=== PATIENT | female | born 1930 | race Caucasian/White ===

== ENCOUNTER 2017-01-13 09:38 | Emergency (ER) | payer MEDICARE, OTHER ==
[2017-01-13 10:37] VITALS: BP 147/72
--- NOTE | 2017-01-13 11:26 | UC ---
Hand/Wrist HPI - HPI Summary HPI Summary: ONSET OF RIGHT THUMB PAIN YESTERDAY WHEN HER SHOULDER BAG SLIPPED OFF HER SHOULDER. SHE CAUGHT THE BAG IN THE 1ST WEBSPACE OF HER RIGHT HAND AND HER THUMB WAS HYPEREXTENDED. HAS PAIN WITH MVMT. NO SIGNIFICANT SWELLING OR BRUISING. - History Of Current Complaint Chief Complaint: UCUpperExtremity Stated Complaint: THUMB INJURY Time Seen by Provider: 01/13/17 11:08 Hx Obtained From: Patient Onset/Duration: Sudden Onset, Lasting Hours, Still Present Severity Initially: Mild Severity Currently: Mild Pain Intensity: 2 Pain Scale Used: 0-10 Numeric Character Of Pain: Aching Aggravating Factor(s): Movement, Extension, Abduction Alleviating: Rest Related History: Dominant Hand Right - Allergies/Home Medications Allergies/Adverse Reactions: Allergies Allergy/AdvReac Type Severity Reaction Status Date / Time No Known Allergies Allergy Verified 01/13/17 10:37 PMH/Surg Hx/FS Hx/Imm Hx Endocrine History Of: Reports: Dyslipidemia Denies: Diabetes, Thyroid Disease Cardiovascular History Of: Reports: Cardiac Disorders - 5 stents placed in 01/20 , Hypertension - on meds Respiratory History Of: Denies: COPD, Asthma GI/ History Of: Denies: Ulcer Cancer History Of: Denies: Breast Cancer - Surgical History Surgical History: Yes Surgery Procedure, Year, and Place: CERVICAL DISC REPAIR 1971VARICOSE VEIN SURGERY 1958LEFT HIP REPLACEMENT 2010 - Family History Known Family History: Positive: Hypertension - Social History Alcohol Use: None Alcohol Amount: once or twice a year Substance Use Type: None Smoking Status (MU): Never Smoked Tobacco - Immunization History Most Recent Influenza Vaccination: FALL 2012 Most Recent Tetanus Shot: UP TO DATE Most Recent Pneumonia Vaccination: UP TO DATE Review of Systems Constitutional: Negative Skin: Negative Respiratory: Negative Cardiovascular: Negative Gastrointestinal: Negative Musculoskeletal: Arthralgia, Decreased ROM All Other Systems Reviewed And Are Negative: Yes Physical Exam Triage Information Reviewed: Yes Appearance: Well-Appearing, No Pain Distress, Well-Nourished Vital Signs: Initial Vital Signs Temp 98.6 F 01/13/17 10:31 Pulse 69 01/13/17 10:31 Resp 16 01/13/17 10:31 BP 147/72 01/13/17 10:31 Pulse Ox 100 01/13/17 10:31 Vital Signs Reviewed: Yes Eyes: Positive: Conjunctiva Clear ENT: Positive: Hearing grossly normal Neck: Positive: Supple Respiratory: Positive: No respiratory distress, No accessory muscle use Cardiovascular: Positive: Pulses Normal Abdomen Description: Positive: Soft Musculoskeletal: Positive: No Edema, ROM Limited @ - RIGHT THUMB MCP JOINT, Other: - TTP RIGHT 1ST MCP JOINT AND METACARPAL. SEVERE PAIN WITH ABDUCTION AND EXTENSION OF THUMB. SLIGHT PAIN WITH FINKELSTEINS Neurological: Positive: Alert Psychological: Positive: Age Appropriate Behavior Skin: Negative: rashes Diagnostics - Radiology RIGHT THUMB XRAY Xray Interpretation: No Acute Changes Radiology Interpretation Completed By: Radiologist Hand/Wrist Course/Dx - Differential Dx/Diagnosis Differential Diagnosis/HQI/PQRI: Sprain, Tendonitis, Tenosynovitis Provider Diagnoses: RIGHT ULNAR COLLATERAL LIGAMENT INJURY Discharge - Discharge Plan Condition: Stable Disposition: HOME Patient Education Materials: [employer] (ED) Referrals: Aaron Gibbons MD [Primary Care Provider] - 1 Week Additional Instructions: FOLLOW-UP WITH YOUR PCP IN A WEEK OR SO TO RE-EVALUATE YOUR PROGRESS. YOU MAY NEED TO WEAR THE SPLINT FOR SEVERAL WEEKS BEFORE AN EXERCISE REGIMEN IS STARTED.
--- NOTE | 2017-01-13 11:41 | RAD ---
INDICATION: Right thumb injury. TECHNIQUE: 3 views of the right thumb were obtained. FINDINGS: The bones are osteopenic and in normal alignment. There is soft tissue swelling around the distal phalanx. No fracture is seen. There is moderate osteoarthritic change in the interphalangeal joint and within the scaphotrapezial joint. IMPRESSION: NO EVIDENCE FOR FRACTURE.
== END 2017-01-13 12:15 | disposition home or self-care (01) ==
LOC: UCEAST 09:38
DX: S53.441A Ulnar collateral ligament sprain of right elbow, initial encounter (principal); X50.0XXA Overexertion from strenuous movement or load, initial encounter; Y92.9 Unspecified place or not applicable
CPT/HCPCS: 99213; G0463

== ENCOUNTER 2017-05-24 10:35 | Day surgery (SDC) | payer MEDICARE, OTHER ==
[~2017-05-24 10:35] MED LIST: Acetaminophen TAB* 325 MG PO PRN; Buffered Lidocaine 0.9% SYRIN* 5 ML/SYR SYRINGE INTRADERM ONE
[2017-05-24] MEDS ORDERED: fentaNYL* 50 MCG/ML 2 ML VIAL (100 MCG VIAL) ONE (12:30)
[2017-05-24] MEDS ORDERED: Midazolam* 1 MG/ML 2 ML VIAL (2 MG) ONE (12:30)
[2017-05-24] MEDS ORDERED: Neomycin/Polymy/Dex OPTH.SUSP* MAXITROL 0.1% 5 ML ONE (12:37)
[2017-05-24] MEDS ORDERED: Proparacaine 0.5% OPHTH.SOL* 15 ML BTL ONE (12:37)
[2017-05-24] MEDS ORDERED: Povidone Iodine 5% OPTH* 30 ML BTL ONE (12:37)
[2017-05-24] MEDS ORDERED: Cyclopentolate 1% OPTH.SOL* 2 ML BTL ONE (12:37)
[2017-05-24] MEDS ORDERED: Lidocaine 1% MPF* 2 ML VIAL ONE (12:37)
[2017-05-24] MEDS ORDERED: acetaZOLAMIDE TAB* 250 MG ONE (12:37)
[2017-05-24] MEDS ORDERED: Phenylephrine 2.5% OPTH.SOL* 2 ML BTL ONE (12:37)
[2017-05-24] MEDS ORDERED: Buffered Lidocaine 0.9% SYRIN* 5 ML/SYR SYRINGE ONE (12:37)
[2017-05-24] MEDS ORDERED: Flurbiprofen 0.03% OPTH.SOL* 2.5 ML BTL ONE (12:37)
[2017-05-24] MEDS ORDERED: Ondansetron INJ* 2 MG/ML VIAL ONE (13:26)
[2017-05-24 13:27] VITALS: BP 110/64
--- NOTE | 2017-05-25 03:32 | OP ---
DATE OF OPERATION: 05/24/17 [facility] DATE OF : 32 SURGEON: Abhilash Villanueva M.D. PREOPERATIVE DIAGNOSIS: Cataract, left eye. POSTOPERATIVE DIAGNOSIS: Cataract, left eye. OPERATIVE PROCEDURE: Phacoemulsification, left eye with IOL. DESCRIPTION OF PROCEDURE: The patient was brought to the operating room after being given 1/2% Alcaine with epinephrine drops in the preoperative area. The eye was prepped and draped in the usual sterile fashion. Sterile drape and eyelid speculum were placed. Again, topical 1/2% Alcaine with epinephrine was given. A paracentesis incision was made at the 3 o'clock position with the No.75 blade. Clear cornea incision 2.2 x 2.2-mm was created at the 6 o'clock position starting at the anterior limbus using the 2.2-mm keratome. The anterior chamber was irrigated with 0.4 mL of 1% non-preservative intracameral lidocaine and filled with DisCoVisc. A capsulorrhexis was completed using the cystotome and the Utrata forceps. Hydrodissection was performed with balanced salt solution. The lens nucleus was removed with the Phacoemulsification handpiece without incident. Cortex was removed with the irrigation-aspiration handpiece. The capsular bag was re-inflated using DisCoVisc and an [id number] 20.5 implant was inserted with the shooter. The irrigation-aspiration handpiece was used to remove all residual DisCoVisc. The eye was refilled with balanced salt solution and the wound checked and found to be watertight. Topical Maxitrol drops were given. [id number]/[facility] #: [id number] [facility]
== END 2017-05-24 14:10 | disposition home or self-care (01) ==
LOC: OREAST 10:35
PROVIDERS: ATTEND Specialist
DX: H25.812 Combined forms of age-related cataract, left eye (principal); H40.1414 Capsular glaucoma with pseudoexfoliation of lens, right eye, indeterminate stage; I10 Essential (primary) hypertension; E78.2 Mixed hyperlipidemia; M85.9 Disorder of bone density and structure, unspecified; I25.10 Atherosclerotic heart disease of native coronary artery without angina pectoris; I25.2 Old myocardial infarction; Z95.5 Presence of coronary angioplasty implant and graft
CPT/HCPCS: A9270-GY; J2250; J2405; J3010; V2632

== ENCOUNTER 2017-05-31 06:46 | Day surgery (SDC) | payer MEDICARE, OTHER ==
[2017-05-31] MEDS ORDERED: fentaNYL* 50 MCG/ML 2 ML VIAL (100 MCG VIAL) ONE (07:44)
[2017-05-31] MEDS ORDERED: Midazolam* 1 MG/ML 2 ML VIAL (2 MG) ONE (07:44)
[2017-05-31 08:55] VITALS: BP 129/59
[2017-05-31] MEDS ORDERED: Cyclopentolate 1% OPTH.SOL* 2 ML BTL ONE (09:03)
[2017-05-31] MEDS ORDERED: acetaZOLAMIDE TAB* 250 MG ONE (09:03)
[2017-05-31] MEDS ORDERED: Proparacaine 0.5% OPHTH.SOL* 15 ML BTL ONE (09:03)
[2017-05-31] MEDS ORDERED: Phenylephrine 2.5% OPTH.SOL* 2 ML BTL ONE (09:03)
[2017-05-31] MEDS ORDERED: Povidone Iodine 5% OPTH* 30 ML BTL ONE (09:03)
[2017-05-31] MEDS ORDERED: Lidocaine 1% MPF* 2 ML VIAL ONE (09:03)
[2017-05-31] MEDS ORDERED: Buffered Lidocaine 0.9% SYRIN* 5 ML/SYR SYRINGE ONE (09:03)
[2017-05-31] MEDS ORDERED: Ketorolac 0.5% OPHTH (NF) 0.5 % 5 ML BTL ONE (09:03)
[2017-05-31] MEDS ORDERED: Neomycin/Polymy/Dex OPTH.SUSP* MAXITROL 0.1% 5 ML ONE (09:03)
--- NOTE | 2017-05-31 09:05 | OP ---
DATE OF OPERATION: 05/31/17 - [facility] DATE OF : 32 SURGEON: Abhilash Villanueva M.D. PREOPERATIVE DIAGNOSIS: Cataract right eye. POSTOPERATIVE DIAGNOSIS: Cataract right eye. OPERATIVE PROCEDURE: Phacoemulsification right eye with intraocular lens implant and CTR. DESCRIPTION OF PROCEDURE: The patient was brought to the operating room after being given 1/2% Alcaine with epinephrine drops in the preoperative area. The eye was prepped and draped in the usual sterile fashion. Sterile drape and eyelid speculum were placed. Again, topical 1/2% Alcaine with epinephrine was given. A paracentesis incision was made at the 9 o'clock position with the No.75 blade. Clear cornea incision 2.2 x 2.2-mm was created at the 12 o'clock position starting at the anterior limbus using the 2.2-mm keratome. The anterior chamber was irrigated with 0.4 mL of 1% non-preservative intracameral lidocaine and filled with DisCoVisc. A capsulorrhexis was completed using the cystotome and the Utrata forceps. Hydrodissection was performed with balanced salt solution. The lens nucleus was removed with the Phacoemulsification handpiece without incident. Cortex was removed with the irrigation-aspiration handpiece. The capsular bag was re-inflated using DisCoVisc and an [id number] implant was inserted with the shooter and oriented to the 70-degree meridian. Horizontal reference rich were made in the pre- operative area in the seated position prior to reorienting the lens. A CTR11 was inserted with the shooter into the capsular bag. The irrigation-aspiration handpiece was used to remove all residual DisCoVisc. The eye was refilled with balanced salt solution and the wound checked and found to be watertight. Topical Maxitrol drops were given. [id number]/[facility] #: [id number] [facility] SYSTEMCarole
== END 2017-05-31 09:02 | disposition home or self-care (01) ==
LOC: OREAST 06:46
PROVIDERS: ATTEND Specialist
DX: H25.811 Combined forms of age-related cataract, right eye (principal); H40.1414 Capsular glaucoma with pseudoexfoliation of lens, right eye, indeterminate stage; I10 Essential (primary) hypertension; I25.10 Atherosclerotic heart disease of native coronary artery without angina pectoris; I25.2 Old myocardial infarction; Z87.891 Personal history of nicotine dependence; E78.5 Hyperlipidemia, unspecified
CPT/HCPCS: A9270-GY; J2250; J3010; V2787

== ENCOUNTER 2018-05-24 10:32 | Inpatient (IN) | payer MEDICARE, OTHER ==
--- NOTE | 2018-05-09 21:47 | HP ---
HISTORY AND PHYSICAL: DATE OF ADMISSION/SURGERY: 05/24/18 DATE OF OFFICE VISIT: 05/09/18 SURGEON: Glenna Peguero MD * (DICTATED BY ALEJO SHEEHAN) PROCEDURE: Right total hip arthroplasty. CHIEF COMPLAINT: Right hip pain. HISTORY OF PRESENT ILLNESS: Ms. Kearney is an 87-year-old female with complaints of right hip pain. She has failed conservative treatment and elected to proceed with the right total hip arthroplasty., which is scheduled for 05/24/[address] Peguero. PAST MEDICAL HISTORY: Hypertension, high cholesterol, prior [place]. PAST SURGICAL HISTORY: Heart stents, vein stripping, left total hip arthroplasty, cervical diskectomy, cataract removal. CURRENT MEDICATIONS: 1. Atorvastatin calcium 20 mg q.h.s. 2. Lisinopril 5 mg every day. 3. Aspirin 81 mg daily. 4. Glucosamine and chondroitin. 5. Metoprolol. 6. Amlodipine 2.5 mg daily. 7. Amoxicillin 500 mg before dental work. 8. CoQ10. 9. Calcium with vitamin D. 10. Alendronate sodium 70 mg every week. ALLERGIES: No known drug allergies. FAMILY HISTORY: Heart disease. SOCIAL HISTORY: She is an 87-year-old female, lives at [facility]. She does not smoke, use drugs. Uses occasional alcohol. REVIEW OF SYSTEMS: A complete 14-point review of systems was reviewed with the patient and was all negative and noncontributory. PHYSICAL EXAMINATION GENERAL: She is well developed, well nourished, in no acute distress. VITAL SIGNS: She stands 5 feet 3 inches tall, weighs 146 pounds. Her blood pressure 140/80, her heart rate is 84. HEENT: Normocephalic, atraumatic. NECK: Supple. No palpable lymph nodes. PULMONARY: The lungs are clear to auscultation bilaterally. CARDIO: Regular rate and rhythm. Strong S1, S2. ABDOMEN: Soft, nontender, nondistended. MUSCULOSKELETAL: Right lower extremity, the skin is intact. There are no open wounds or abrasions. She walks with an antalgic-type gait favoring her right hip. She has 80 degrees of hip flexion, 20 degrees of external rotation, 5 degrees of internal rotation. 2+ dorsalis pedis pulses and intact sensation. Her lower extremity muscle group strengths were intact at 5/5. NEUROLOGICAL: She is alert and oriented x3. ASSESSMENT AND PLAN: Ms. Kearney is an 87-year-old female with end-stage osteoarthritis of the right hip. She has failed conservative treatment and has elected to proceed with the right total hip arthroplasty, which is scheduled for 05/24/[address] Peguero discussed the risks and benefits of the surgery at today's visit and all of her questions were answered. She will follow up in 2 weeks after the surgery with Dr. Peguero. ALEJO SHEEHAN [id number]/[facility] #: [id number] MTDCarole
[~2018-05-24 10:32] MED LIST changes: -Acetaminophen TAB* 325 MG PO PRN; +Sodium Citrate/Citric Acid* 15 ML UDC PO ONE
--- OUTSIDE RECORDS SUMMARY | 2018-05-24 10:37 | XMS REPORT ---
:1930 External Reference #:[id number] Author Organization [place] [facility] Address [address] [place] [address] [place] [address] Phone [phone] Care Team Providers Name Role Phone Aaron Gibbons III, MD Primary Care Physician Unavailable Payers Type Date Identification Numbers Payment Provider Subscriber Medicare Primary Effective: Policy Number: Medicare Alpa Kearney 1995 [id number] PayID: [id number] [address] [place] [address] Medigap Part B Policy Number: [id number] For Life Robertjuli Kearney PayID: [id number] [address] [place] [address] Advance Directives Type Date Description Status Comment Other Directive 02/03/2014 Health Care Proxy Current and Verified Problems Date Description Provider Status Onset: 03/07/2012 Urinary tract infectious disease Alyce Garcia, Active N.P. Onset: 03/07/2012 Atrophic vaginitis Alyce Garcia, Active N.P. Onset: 08/13/2012 Benign essential hypertension Aaron Gibbons M.D. Active Onset: 08/13/2012 Osteochondropathy Aaron Gibbons M.D. Active Onset: 08/13/2012 Pure hypercholesterolemia Aaron Gibbons M.D. Active Onset: 01/16/2014 Coronary arteriosclerosis Sebastián Barker M.D., [facility], Active [facility] Onset: 01/16/2014 Mixed hyperlipidemia Sebastián Barker M.D., [facility], Active [facility] Onset: 03/04/2014 Chronic ischemic heart disease Sebastián Barker M.D., [facility], Active [facility] Onset: 04/30/2018 Localized, primary osteoarthritis of Glenna Peguero M.D. Active the pelvic region and thigh Onset: 08/24/2015 Disorder of bone Aaron Gibbons M.D. Active Onset: 08/24/2015 Essential hypertension Aaron Gibbons M.D. 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 Cigarette Use Never Smoked Cigarettes ETOH Use Denies alcohol use Smoking Patient has never smoked Recreational Drug Use Denies Drug Use Daily Caffeine Consumes on average 2 cups of hot tea per day Exercise Type/Frequency Exercises rarely Allergies, Adverse Reactions, Alerts Date Description Reaction Status Severity Comments 07/02/2007 NKDA active Medications Medication Date Status Form Strength Qnty SIG Indications Ordering Provider Atorvastatin 04/20 Active Tablets 20mg 90tab take 1 Aaron Boyer /2014 s tablet at Edwige, bedtime Virginie Lisinopril 11/28 Active Tablets 5mg 180ta 1 by mouth Sebastián /2014 bs twice a day Virginie Barker, [facility], [facility] Aspirin Ec Active Tablets 81mg 90tab 1 tablet Unknown Lo-Dose / DR s daily. Glucosamine Active Capsules 1 cap po Unknown Chondroitin daily Complex Metoprolol Active Tablets 100mg 180ta 1 by mouth Sebastián Succinate ER /0000 ER 24HR bs twice a day Virginie Barker, [facility], [facility] Amlodipine Active Tablets 2.5mg 90tab 1 by mouth Sebastián Besylate / s every day Virginie Barker, ESHA, [facility] Amoxicillin Active Capsules 500mg 12cap 4 tablets 1 Unknown /0000 s hour before dental work Co Q-10 Active Capsules 100mg 90cap 1 by mouth Unknown /0000 s every day Calcium + D3 Active Tablets 600-200mg once daily Unknown /0000 -Unit Alendronate Active Tablets 70mg take 1 Unknown Sodium /0000 tablet by mouth every week Alendronate 10/16 Hx Tablets 70mg 12tab take 1 M85.831 Aaron Geiger. Sodium s tablet by Edwige, - mouth every M.D. Keflex 10/06 Hx Capsules 500mg 10cap take 1 tab R23.8 Aaron E. s by mouth q12 Edwige, - hours for 5 M.D. Probiotic Complex 10/06 Hx Capsules 60cap Take 1 R23.8 Cat[place] Acidophilus s capsule [place], - daily for 60 M.D. Keflex 02/17 Hx Capsules 500mg 20cap 1 by mouth 681.11 Aaron Caldera s twice a day Ed[place]ige, - M.D. 04/19 Lisinopril 07/09 Hx Tablets 5mg 90tab 1 by mouth s every in the [facility] - morning M.D., 11/28 [facility], [facility] Cipro 03/19 Hx Tablets 250mg 14tab one by vlad Caldera s twice daily Edwige, - for 7 days M.D. 05/14 Cipro 02/10 Hx Tablets 250mg 14tab one by vlad Caldera s twice daily Edwige, - for 7 days M.D. 02/17 Lisinopril 01/16 Hx Tablets 10mg 90tab take one s pill by Mj, - mouth every M.D., 11/28 at night [facility] Zestoretic 04/01 Hx Tablets 10-12.5mg 90tab 1 po qd Aaron Caldera noe Gibbons, - M.D. 04/01 Cipro 10/23 Hx Tablets 250mg 10tab take one 599.0 Aaron Caldera s pill twice Edwige, - daily for 5 M.D. Cyclobenzaprine 04/23 Hx Tablets 5mg 15tab 1 po tid prn Dirk HCL s muscle spasm Rusty, - M.D. 08/13 Cipro 03/07 Hx Tablets 250mg 14tab take one 599.0 Alyce /2012 s pill twice [place] Pool-W - daily for 7 atson, 08/13 days N.P. Premarin 03/07 Hx Cream 0.625mg/G 42.50 administer 627.3 M 0gm 0.5 grams [place] Pool-W - twice weekly atson, 01/15 N.P. Cipro 08/18 Hx Tablets 500mg 14tab 1 po bid Aaron ESanam s Aundrea Gibbons M.D. 03/07 Coumadin 05/11 Hx Tablets 2.5mg 90tab take as s directed at Rusty, - 5pm daily M.DSanam 03/07 Percocet 05/11 Hx Tablets 5-325mg 90tab 1-2 tabs po s q4-6 prn Rusty, - pain M.DSanam 03/07 Cipro 03/02 Hx Tablets 500mg 14tab 1 po bid X7 Aaron Caldera s Aundrea Kim M.D. 04/26 Ibuprofen 11/12 Hx Capsules 200mg prn Aaron ESanam Aundrea Gibbons M.D. 01/15 Zestoretic 11/12 Hx Tablets 10-12.5mg 90tab 1 po qd Aaron Sanam s Aundrea Gibbons M.D. 01/15 Medrol Dosepak 07/14 Hx Tablets 4mg 1tabs follow Aaron Sanam package Aundrea Gibbons M.D. 04/26 take with food Flexeril 07/03 Hx Tablets 10mg 15tab 1 po QHS prn Aaron ESanam s Aundrea Gibbons M.D. 04/26 Acetasol HC 10/21 Hx Solution 2-1% 15cc 3-4 drops Aaron ESanam qid Aundrea Gibbons M.D. 06/18 Physical Therapy 10/21 Hx 20uni pt Aaron ESanam ts evaluation Edwige, - and Virginie 05/12 treatment for bilat hip pain Cortisporin TC 09/10 Hx 10cc 4 drops to Aaron Caldera Ot [place] qid for Edwige, - 7-10 days M.DSanam 10/21 Tamiflu 01/13 Hx Capsules 75mg 10cap 1 PO bid X 5 Aaron Caldera /2007 s Aundrea Kim M.D. 03/20 Tylenol Hx Tablets 325mg 100ta prn Barken, /0000 bs MD Vipul - 04/29 Advil Hx Capsules 200mg 1 PO prn Mando, /0000 MD Vipul - 12/30 Osteo Bi-Flex Hx Tablets 250-200mg 2 by mouth Unknown Regular Strength /0000 every day - 08/20 Centrum Silver Hx Tablets 1 PO qd Mando, /0000 MD Vipul - 07/02 Zestoretic Hx Tablets 07/20.5 90tab 1 po qd Aaron E. /0000 s Aundrea Gibbons M.D. 11/12 Aleve Hx Tablets 220mg prn Mando, /0000 MD Vipul - 04/20 Atenolol Hx Tablets 25mg 90tab 1 po qd Aaron E. /0000 Aundrea Reynolds M.D. 01/15 Calcium + D Hx Tablets 600-200mg 60tab 1 po bid Unknown /0000 -Unit s - 01/15 Metoprolol Hx 25mg 1 1/2 tab po Unknown /0000 Tablet bid - 01/15 Enalapril Maleate Hx Tablets 10mg 30tab 1 by mouth Unknown /0000 s every day - 01/15 Atorvastatin Hx Tablets 40mg 90tab 1/2 tab by Sebastián Calcium /0000 s mouth every Stefek, - day M.D., 04/20 [facility], [facility] Nitrostat Hx Tablets 0.4mg 25tab one sl q5min Unknown /0000 Sub s up to 3 - doses as 02/25 Brilinta Hx Tablets 90mg 180ta 1 tab by Sebastián /0000 bs mouth twice Stefek, - a day M.D., 12/30 [facility], [facility] Lisinopril Hx Tablets 10mg 90tab 1 by mouth Unknown /0000 s every day - 01/16 Premarin Hx Cream 0.625mg/G 42.50 10/10 Unknown /0000 M 0gm application - by way of 11/27 weekly Calcium 600+D3 Hx Tablets 600-800mg daily Unknown /0000 -Unit - 08/24 Ketoconazole Hx Cream 2% apply thin Unknown /0000 film once - daily 04/19 Vitamin D High Hx Capsules 1000Unit 2 by mouth Unknown Potency /0000 every day - 04/29 Calcium 600 Hx Tablets 1500(600C Unknown /0000 a) mg - 08/25 Ciprofloxacin HCL Hx Tablets 250mg one by mouth Unknown /0000 twice a day - 05/08 Immunizations CPT Code Status Date Vaccine Lot # [id number] Given 08/28/2017 Influenza Virus Vaccine, Quadrivalent, Split, [id number] Preservative Free 15166 Given 08/25/2016 Influenza Virus Vaccine, Quadrivalent, Split [id number] Virus, [place] Use [address] Given 08/24/2015 Influenza Virus Vaccine, Quadrivalent, Split, [id number] Preservative Free 90437 Given 02/17/2015 Tdap - Tetanus/Diptheria/Acellular Pertussis [id number] 07579 Given 02/17/2015 Pneumococcal Conjugate Vaccine 13 Valent For [id number] Intramuscular Use 88128 Given 08/20/2014 Flu Vaccine Split Virus Preservative Free For [id number] Indiv 3Yr Older 05922 Given 08/14/2013 Flu Vaccine Split Virus Preservative Free For [id number] Indiv 3Yr Older 21785 Given 09/19/2012 Zoster (Zostavax) [id number] Q2038 Given 07/11/2012 Fluzone Vaccine [id number] Q2038 Given 11/12/2010 Fluzone Vaccine [id number] 74126 Given 07/28/2008 Influenza Virus 3Yrs & Over 13137 Given 07/23/2007 Influenza Virus 3Yrs & Over 77280 Given 07/23/2007 Influenza Virus 3Yrs & Over 49661 Given 07/23/2007 Influenza Virus 3Yrs & Over [id number] 39503 Given 05/04/2004 Td (History By Patient) [id number] 93860 Given 03/25/1999 Pneumovax (History By Patient) Vital Signs Date Vital Result Comment 05/10/2018 Height 63 inches 5'3" Weight 147.00 lb Heart Rate 76 /min BP Systolic Sitting 114 mmHg Lue reg cuff BP Diastolic Sitting 80 mmHg Lue reg cuff BP Systolic Standing 116 mmHg Lue BP Diastolic Standing 80 mmHg Lue Respiratory Rate 16 /min BMI (Body Mass Index) 26.0 kg/m2 Ejection Fraction 60-65% 02/25/14 05/09/2018 Height 63.5 inches 5'3.50" Weight 146.00 lb Heart Rate 84 /min BP Systolic 140 mmHg BP Diastolic 80 mmHg BMI (Body Mass Index) 25.5 kg/m2 05/08/2018 Height 63.5 inches 5'3.50" Weight 146.00 lb Heart Rate 70 /min BP Systolic Sitting 120 mmHg BP Diastolic Sitting 70 mmHg O2 % BldC Oximetry 96 % BMI (Body Mass Index) 25.5 kg/m2 04/30/2018 Height 63.5 inches 5'3.50" Weight 146.00 lb Heart Rate 69 /min BP Systolic 146 mmHg BP Diastolic 82 mmHg BMI (Body Mass Index) 25.5 kg/m2 04/18/2018 Height 63 inches 5'3" Weight 142.00 lb Heart Rate 72 /min BP Systolic 139 mmHg BP Diastolic 76 mmHg O2 % BldC Oximetry 97 % BMI (Body Mass Index) 25.2 kg/m2 02/26/2018 Weight 148.00 lb Heart Rate 78 /min BP Systolic Sitting 130 mmHg BP Diastolic Sitting 82 mmHg O2 % BldC Oximetry 96 % 10/16/2017 Weight 148.00 lb Heart Rate 60 /min BP Systolic Sitting 140 mmHg BP Diastolic Sitting 72 mmHg Body Temperature 98.1 F O2 % BldC Oximetry 96 % 10/06/2017 Weight 148.25 lb Heart Rate 70 /min BP Systolic 140 mmHg BP Diastolic 76 mmHg Respiratory Rate 20 /min Body Temperature 97.4 F O2 % BldC Oximetry 97 % 10/04/2017 Weight 147.50 lb Heart Rate 73 /min BP Systolic 134 mmHg BP Diastolic 78 mmHg Respiratory Rate 18 /min Body Temperature 98.1 F O2 % BldC Oximetry 97 % 08/28/2017 Height 63 inches 5'3" Weight 149.00 lb Heart Rate 97 /min BP Systolic Sitting 134 mmHg BP Diastolic Sitting 78 mmHg Body Temperature 98.7 F O2 % BldC Oximetry 97 % BMI (Body Mass Index) 26.4 kg/m2 05/04/2017 Height 63 inches 5'3" Weight 143.00 lb Heart Rate 66 /min BP Systolic Sitting 142 mmHg BP Diastolic Sitting 64 mmHg Body Temperature 98.4 F O2 % BldC Oximetry 97 % BMI (Body Mass Index) 25.3 kg/m2 02/22/2017 Weight 146.00 lb Heart Rate 68 /min BP Systolic Sitting 126 mmHg BP Diastolic Sitting 74 mmHg Respiratory Rate 15 /min O2 % BldC Oximetry 98 % 08/25/2016 Height 63 inches 5'3" Weight 146.00 lb Heart Rate 80 /min BP Systolic Sitting 136 mmHg BP Diastolic Sitting 76 mmHg Body Temperature 98.2 F O2 % BldC Oximetry 96 % BMI (Body Mass Index) 25.9 kg/m2 04/18/2016 Weight 140.38 lb without shoes Heart Rate 76 /min BP Systolic Sitting 100 mmHg LA reg cuff BP Diastolic Sitting 70 mmHg LA reg cuff BP Systolic Standing 108 mmHg La reg cuff BP Diastolic Standing 72 mmHg La reg cuff Respiratory Rate 17 /min Ejection Fraction 60-65% date 02/25/14 ECHO 02/22/2016 Weight 139.00 lb Heart Rate 65 /min BP Systolic Sitting 135 mmHg BP Diastolic Sitting 79 mmHg Body Temperature 98.5 F 12/31/2015 Height 63 inches 5'3" Weight 141.00 lb Heart Rate 66 /min BP Systolic 124 mmHg BP Diastolic 60 mmHg Body Temperature 98.0 F O2 % BldC Oximetry 98 % BMI (Body Mass Index) 25.0 kg/m2 10/28/2015 Height 63 inches 5'3" Weight 140.00 lb Heart Rate 73 /min BP Systolic 141 mmHg BP Diastolic 82 mmHg Body Temperature 98.2 F O2 % BldC Oximetry 98 % BMI (Body Mass Index) 24.8 kg/m2 08/24/2015 Height 63 inches 5'3" Weight 140.00 lb Heart Rate 72 /min BP Systolic Sitting 136 mmHg BP Diastolic Sitting 68 mmHg Body Temperature 98.7 F O2 % BldC Oximetry 98 % BMI (Body Mass Index) 24.8 kg/m2 04/20/2015 Height 63 inches 5'3" Weight 138.00 lb Heart Rate 66 /min 78 BP Systolic Sitting 130 mmHg right arm, reg cuff BP Diastolic Sitting 80 mmHg right arm, reg cuff BP Systolic Standing 124 mmHg right arm, reg cuff BP Diastolic Standing 76 mmHg right arm, reg cuff Respiratory Rate 20 /min BMI (Body Mass Index) 24.4 kg/m2 Ejection Fraction 60-65% 02/25/14 02/17/2015 Height 63 inches 5'3" Weight 138.00 lb Heart Rate 72 /min BP Systolic Sitting 138 mmHg BP Diastolic Sitting 82 mmHg Body Temperature 98.6 F O2 % BldC Oximetry 98 % BMI (Body Mass Index) 24.4 kg/m2 12/10/2014 Height 63 inches 5'3" Weight 136.00 lb Heart Rate 64 /min BP Systolic Sitting 132 mmHg BP Diastolic Sitting 80 mmHg Body Temperature 98.2 F BMI (Body Mass Index) 24.1 kg/m2 11/28/2014 Height 63 inches 5'3" Weight 136.00 lb Heart Rate 72 /min 80 BP Systolic Sitting 138 mmHg right arm, reg cuff BP Diastolic Sitting 80 mmHg right arm, reg cuff BP Systolic Standing 112 mmHg right arm, reg cuff BP Diastolic Standing 72 mmHg right arm, reg cuff Respiratory Rate 16 /min BMI (Body Mass Index) 24.1 kg/m2 10/06/2014 Height 63 inches 5'3" Weight 135.00 lb Pain Level 2 BMI (Body Mass Index) 23.9 kg/m2 09/10/2014 Height 63.25 inches 5'3.25" Weight 135.00 lb Heart Rate 68 /min BP Systolic 159 mmHg BP Diastolic 73 mmHg BMI (Body Mass Index) 23.7 kg/m2 08/20/2014 Height 63.25 inches 5'3.25" Weight 135.00 lb Heart Rate 68 /min BP Systolic Sitting 120 mmHg BP Diastolic Sitting 70 mmHg Body Temperature 97.1 F BMI (Body Mass Index) 23.7 kg/m2 05/16/2014 Height 63 inches 5'3" Weight 132.00 lb Heart Rate 72 /min 78 BP Systolic Sitting 114 mmHg left arm, reg cuff BP Diastolic Sitting 60 mmHg left arm, reg cuff BP Systolic Standing 110 mmHg left arm, reg cuff BP Diastolic Standing 60 mmHg left arm, reg cuff Respiratory Rate 20 /min BMI (Body Mass Index) 23.4 kg/m2 03/04/2014 Height 63 inches 5'3" Weight 130.00 lb Heart Rate 80 /min BP Systolic Sitting 110 mmHg Ra reg cuff BP Diastolic Sitting 70 mmHg Ra reg cuff BP Systolic Standing 104 mmHg Ra BP Diastolic Standing 68 mmHg Ra Respiratory Rate 16 /min BMI (Body Mass Index) 23.0 kg/m2 02/17/2014 Weight 127.50 lb Heart Rate 88 /min BP Systolic Sitting 118 mmHg BP Diastolic Sitting 72 mmHg 01/16/2014 Height 63 inches 5'3" Weight 127.38 lb without shoes Heart Rate 86 /min 88 sit and stand HR reg BP Systolic Sitting 136 mmHg LA reg cuff BP Diastolic Sitting 66 mmHg LA reg cuff BP Systolic Standing 130 mmHg LA reg cuff BP Diastolic Standing 70 mmHg LA reg cuff Respiratory Rate 17 /min BMI (Body Mass Index) 22.6 kg/m2 08/14/2013 Height 63.25 inches 5'3.25" Weight 132.00 lb Heart Rate 88 /min BP Systolic Sitting 152 mmHg autocuff 160/83 BP Diastolic Sitting 82 mmHg autocuff 160/83 O2 % BldC Oximetry 98 % BMI (Body Mass Index) 23.2 kg/m2 08/08/2013 Weight 131.50 lb Heart Rate 82 /min BP Systolic Sitting 142 mmHg BP Diastolic Sitting 84 mmHg 02/21/2013 Weight 132.00 lb Heart Rate 71 /min BP Systolic Standing 126 mmHg BP Diastolic Standing 82 mmHg Body Temperature 98.6 F 02/11/2013 Weight 132.00 lb Heart Rate 86 /min BP Systolic Sitting 134 mmHg 154/70 initially BP Diastolic Sitting 68 mmHg 154/70 initially 10/23/2012 Height 63.5 inches 5'3.50" Weight 138.00 lb Heart Rate 78 /min BP Systolic Sitting 164 mmHg BP Diastolic Sitting 80 mmHg Body Temperature 97.9 F Tympanically BMI (Body Mass Index) 24.1 kg/m2 08/13/2012 Height 63.5 inches 5'3.50" Weight 139.00 lb Heart Rate 68 /min BP Systolic Sitting 148 mmHg BP Diastolic Sitting 82 mmHg BMI (Body Mass Index) 24.2 kg/m2 07/11/2012 Height 63.5 inches 5'3.50" Weight 140.00 lb Heart Rate 78 /min BP Systolic Sitting 128 mmHg BP Diastolic Sitting 74 mmHg BMI (Body Mass Index) 24.4 kg/m2 03/07/2012 Height 63.5 inches 5'3.50" Weight 139.00 lb Heart Rate 80 /min BP Systolic Sitting 140 mmHg 160/92 Right Arm BP Diastolic Sitting 100 mmHg 160/92 Right Arm BMI (Body Mass Index) 24.2 kg/m2 08/17/2011 Height 72 inches 6'0" Weight 138.00 lb Heart Rate 80 /min BP Systolic Sitting 140 mmHg BP Diastolic Sitting 70 mmHg Body Temperature 97.3 F BMI (Body Mass Index) 18.7 kg/m2 04/26/2011 Weight 138.00 lb Heart Rate 72 /min BP Systolic Sitting 122 mmHg BP Diastolic Sitting 82 mmHg Respiratory Rate 20 /min 11/12/2010 Weight 135.00 lb Heart Rate 88 /min BP Systolic Sitting 168 mmHg BP Diastolic Sitting 88 mmHg O2 % BldC Oximetry 98 % 06/18/2010 Weight 138.00 lb Heart Rate 78 /min BP Systolic Sitting 130 mmHg BP Diastolic Sitting 82 mmHg 05/12/2010 Weight 134.00 lb Heart Rate 75 /min BP Systolic Sitting 150 mmHg BP Diastolic Sitting 80 mmHg 10/21/2009 Height 62.5 inches 5'2.50" Weight 134.00 lb Heart Rate 80 /min BP Systolic Sitting 146 mmHg BP Diastolic Sitting 78 mmHg BMI (Body Mass Index) 24.1 kg/m2 09/10/2009 Height 62.50 inches 5'2.50" Weight 135.00 lb Heart Rate 78 /min BP Systolic Sitting 142 mmHg BP Diastolic Sitting 80 mmHg BMI (Body Mass Index) 24.3 kg/m2 04/20/2009 Heart Rate 60 /min 61 BP Systolic Sitting 150 mmHg 149/84 with pt's monitor BP Diastolic Sitting 76 mmHg 149/84 with pt's monitor 03/20/2009 Height 62.5 inches 5'2.50" Weight 129.00 lb Heart Rate 70 /min BP Systolic Sitting 142 mmHg BP Diastolic Sitting 94 mmHg BMI (Body Mass Index) 23.2 kg/m2 12/31/2007 Height 62.5 inches 5'2.50" Weight 138.00 lb Heart Rate 68 /min BP Systolic Sitting 134 mmHg BP Diastolic Sitting 74 mmHg BMI (Body Mass Index) 24.8 kg/m2 07/02/2007 Height 62.5 inches 5'2.50" Weight 145.00 lb Heart Rate 80 /min BP Systolic Sitting 140 mmHg BP Diastolic Sitting 76 mmHg BMI (Body Mass Index) 26.1 kg/m2 Results Test Date Test Result H/L Range Note Laboratory test finding 05/10/2018 Creatine Kinase(CK) <pending> CBC Auto Diff 05/09/2018 White Blood Count 3.9 10^3/uL 3.5-10.8 Red Blood Count 4.94 10^6/uL 4.00-5.40 Hemoglobin 15.0 g/dL 12.0-16.0 Hematocrit 44 % 35-47 Mean Corpuscular Volume 90 fL 80-97 Mean Corpuscular Hemoglobin 30 pg 27-31 Mean Corpuscular HGB Conc 34 g/dL 31-36 Red Cell Distribution Width 14 % 10.5-15 Platelet Count 245 10^3/uL 150-450 Mean Platelet Volume 7.0 um3 Low 7.4-10.4 Abs Neutrophils 2.2 10^3/uL 1.5-7.7 Abs Lymphocytes 1.2 10^3/uL 1.0-4.8 Abs Monocytes 0.4 10^3/uL 0-0.8 Abs Eosinophils 0.1 10^3/uL 0-0.6 Abs Basophils 0 10^3/uL 0-0.2 Abs Nucleated RBC 0 10^3/uL Granulocyte % 55.4 % 38-83 Lymphocyte % 30.0 % 25-47 Monocyte % 10.0 % High 0-7 Eosinophil % 3.7 % 0-6 Basophil % 0.9 % 0-2 Nucleated Red Blood Cells % 0.1 Type & Screen 05/09/2018 Patient Blood Type O Positive Antibody Screen NEGATIVE Urinalysis Profile 05/09/2018 Urine Color Yellow Urine Appearance Clear Urine Specific [place] 1.012 1.010-1.030 Urine pH 7.0 5-9 Urine Urobilinogen Negative Negative Urine Ketones Negative Negative Urine Protein Negative Negative Urine Leukocytes Negative Negative Urine Blood Negative Negative Urine Nitrite Negative Negative Urine Bilirubin Negative Negative Urine Glucose Negative Negative Inr/Protime 05/09/2018 Inr 0.93 0.77-1.02 Laboratory test finding 05/09/2018 Partial Thrombo Time 30.9 seconds 26.0 -36.3 PTT Comp Metabolic Panel 05/09/2018 Sodium 139 mmol/L 135-145 Potassium 3.9 mmol/L 3.5-5.0 Chloride 103 mmol/L 101-111 Co2 Carbon Dioxide 30 mmol/L 22-32 Anion Gap 6 mmol/L 2-11 Glucose 82 mg/dL 70-100 Blood Urea Nitrogen 13 mg/dL 6-24 Creatinine 0.77 mg/dL 0.51-0.95 BUN/Creatinine Ratio 16.9 8-20 Calcium 9.6 mg/dL 8.6-10.3 Total Protein 6.7 g/dL 6.4-8.9 Albumin 4.3 g/dL 3.2-5.2 Globulin 2.4 g/dL 2-4 Albumin/Globulin Ratio 1.8 1-3 Total Bilirubin 0.70 mg/dL 0.2-1.0 Alkaline Phosphatase 74 U/L 34-104 Alt 14 U/L 7-52 Ast 22 U/L 13-39 Egfr Non- 71.1 >60 Egfr 86.0 >60 1 Comp Metabolic Panel 08/24/2017 Sodium 139 mmol/L 133-145 Potassium 4.0 mmol/L 3.5-5.0 Chloride 105 mmol/L 101-111 Co2 Carbon Dioxide 30 mmol/L 22-32 Anion Gap 4 mmol/L 2-11 Glucose 92 mg/dL 70-100 Blood Urea Nitrogen 15 mg/dL 6-24 Creatinine 0.78 mg/dL 0.51-0.95 BUN/Creatinine Ratio 19.2 8-20 Calcium 9.8 mg/dL 8.6-10.3 Total Protein 6.4 g/dL 6.4-8.9 Albumin 4.3 g/dL 3.2-5.2 Globulin 2.1 g/dL 2-4 Albumin/Globulin Ratio 2.0 1-3 Total Bilirubin 0.60 mg/dL 0.2-1.0 Alkaline Phosphatase 88 U/L 34-104 Alt 16 U/L 7-52 Ast 25 U/L 13-39 Egfr Non- 70.0 >60 Egfr 90.1 >60 2 Lipid Profile (Trig/Chol/HDL) 08/24/2017 Triglycerides 74 mg/dL 3 Cholesterol 142 mg/dL 4 HDL Cholesterol 56.3 mg/dL 5 LDL Cholesterol 71 mg/dL 6 Laboratory test finding 08/24/2017 Vitamin D Total 25(Oh) 23.3 ng/mL 20- 50 Basic Metabolic Panel 02/20/2017 Sodium 138 mmol/L 133-145 Potassium 4.0 mmol/L 3.5-5.0 Chloride 106 mmol/L 101-111 Co2 Carbon Dioxide 29 mmol/L 22-32 Anion Gap 3 mmol/L 2-11 Glucose 91 mg/dL 70-100 Blood Urea Nitrogen 12 mg/dL 6-24 Creatinine 0.79 mg/dL 0.51-0.95 BUN/Creatinine Ratio 15.2 8-20 Calcium 9.2 mg/dL 8.6-10.3 Egfr Non- 69.2 >60 Egfr 89.0 >60 7 Laboratory test finding 02/20/2017 Vitamin D Total 25(Oh) 23.2 ng/mL Low 30-50 8 Laboratory test finding 04/19/2016 Alt (SGPT) 17 U/L 7-52 Ast (Sgot) 24 U/L 13-39 Lipid Profile (Trig/Chol/HDL) 04/19/2016 Triglycerides 75 mg/dL 9 Cholesterol 131 mg/dL 10 HDL Cholesterol 50.3 mg/dL 11 LDL Cholesterol 66 mg/dL 12 Stool For Blood 11/05/2015 Miscellaneous Lab negative x 3 Urinalysis Profile 11/02/2015 Urine Color Yellow Urine Appearance Cloudy Urine Specific [place] 1.012 1.010-1.030 Urine pH 5.0 5-9 Urine Urobilinogen Negative Negative Urine Ketones Negative Negative Urine Protein Negative Negative Urine Leukocytes Trace Negative Urine Blood Negative Negative * * Negative 13 Urine Nitrite Negative Negative Urine Bilirubin Negative Negative Urine Glucose Negative Negative Urine White Blood Cell Trace(0-5/hpf) Absent Urine Red Blood Cell Absent Absent Urine Bacteria 1+ Absent Urine Squamous Epithelial Cell Present Absent CBC Auto Diff 11/02/2015 White Blood Count 5.4 10^3/uL 3.5-10.8 Red Blood Count 4.67 10^6/uL 4.0-5.4 Hemoglobin 14.3 g/dL 12.0-16.0 Hematocrit 43 % 35-47 Mean Corpuscular Volume 93 fL 80-97 Mean Corpuscular Hemoglobin 31 pg 27-31 Mean Corpuscular HGB Conc 33 g/dL 31-36 Red Cell Distribution Width 14 % 10.5-15 Platelet Count 259 10^3/uL 150-450 Mean Platelet Volume 7 um3 Low 7.4-10.4 Abs Neutrophils 3.6 10^3/uL 1.5-7.7 Abs Lymphocytes 1.0 10^3/uL 1.0-4.8 Abs Monocytes 0.6 10^3/uL 0-0.8 Abs Eosinophils 0.1 10^3/uL 0-0.6 Abs Basophils 0 10^3/uL 0-0.2 Abs Nucleated RBC 0 10^3/uL Granulocyte % 67.4 % 38-83 Lymphocyte % 18.0 % Low 25-47 Monocyte % 11.3 % High 1-9 Eosinophil % 2.6 % 0-6 Basophil % 0.7 % 0-2 Nucleated Red Blood Cells % 0 Comp Metabolic Panel 11/02/2015 Sodium 138 mmol/L 133-145 Potassium 3.9 mmol/L 3.5-5.0 Chloride 102 mmol/L 101-111 Co2 Carbon Dioxide 31 mmol/L 22-32 Anion Gap 5 mmol/L 2-11 Glucose 74 mg/dL 70-100 Blood Urea Nitrogen 15 mg/dL 6-24 Creatinine 0.91 mg/dL 0.51-0.95 BUN/Creatinine Ratio 16.5 8-20 Calcium 9.7 mg/dL 8.6-10.3 Albumin 4.5 g/dL 3.2-5.2 Total Bilirubin 0.50 mg/dL 0.2-1.0 Alt 23 U/L 7-52 Ast 26 U/L 13-39 Egfr Non- 58.9 >60 Egfr 75.7 >60 14 Total Protein 6.7 g/dL 6.4-8.9 Globulin 2.2 g/dL 2-4 Albumin/Globulin Ratio 2.0 1-3 Alkaline Phosphatase 92 U/L 34-104 Laboratory test finding 11/02/2015 Erythrocyte Sed Rate 16 mm/Hr 0-40 C Reactive Protein < 1.00 mg/L < 5.00 15 Urine Culture And Sensitivities SEE RESULT BELOW 16 Basic Metabolic Panel 09/09/2015 Sodium 139 mmol/L 133-145 Potassium 4.2 mmol/L 3.5-5.0 Chloride 104 mmol/L 101-111 Co2 Carbon Dioxide 30 mmol/L 22-32 Anion Gap 5 mmol/L 2-11 Glucose 86 mg/dL 70-100 Blood Urea Nitrogen 15 mg/dL 6-24 Creatinine 0.81 mg/dL 0.51-0.95 BUN/Creatinine Ratio 18.5 8-20 Calcium 9.9 mg/dL 8.6-10.3 Egfr Non- 67.4 >60 Egfr 86.6 >60 17 Laboratory test finding 04/15/2015 Alt (SGPT) 17 U/L 7-52 18, 19 Ast (Sgot) 24 U/L 13-39 18, 20 Lipid Profile (Trig/Chol/HDL) 04/15/2015 Triglycerides 74 mg/dL 18, 21 Cholesterol 127 mg/dL 18, 22 HDL Cholesterol 53.2 mg/dL 18, 23 LDL Cholesterol 59 mg/dL 18, 24 CBC Auto Diff 12/12/2014 White Blood Count 4.7 10^3/uL Low 4.8-10.8 Red Blood Count 4.77 10^6/uL 4.0-5.4 Hemoglobin 14.6 g/dL 12.0-16.0 Hematocrit 45 % 35-47 Mean Corpuscular Volume 94 fL 80-97 Mean Corpuscular Hemoglobin 31 pg 27-31 Mean Corpuscular HGB Conc 33 g/dL 31-36 Red Cell Distribution Width 13 % 10.5-15 Platelet Count 260 10^3/uL 150-450 Mean Platelet Volume 7 um3 Low 7.4-10.4 Abs Neutrophils 2.9 10^3/uL 1.5-7.7 Abs Lymphocytes 1.2 10^3/uL 1.0-4.8 Abs Monocytes 0.5 10^3/uL 0-0.8 Abs Eosinophils 0.1 10^3/uL 0-0.6 Abs Basophils 0 10^3/uL 0-0.2 Abs Nucleated RBC 0 10^3/uL Granulocyte % 61.9 % 38-83 Lymphocyte % 25.4 % 25-47 Monocyte % 9.9 % High 1-9 Eosinophil % 2.3 % 0-6 Basophil % 0.5 % 0-2 Nucleated Red Blood Cells % 0 Laboratory test finding 04/18/2014 Alt 24 U/L 7-52 18, 25 Ast 25 U/L 13-39 18, 26 Lipid Profile (Trig/Chol/HDL) 04/18/2014 Triglycerides 74 mg/dL 18, 27 Cholesterol 130 mg/dL 18, 28 HDL Cholesterol 57.8 mg/dL 18, 29 LDL Cholesterol 57 mg/dL 18, 30 Urinalysis Profile 03/18/2014 Urine Color Ayesha Urine Appearance Turbid Urine Specific [place] 1.029 1.010-1.030 Urine pH 5.0 5-9 Urine Urobilinogen Negative Negative Urine Ketones Negative Negative Urine Protein 2+(100 mg/dL) Negative Urine Leukocytes 3+ Negative Urine Blood Negative Negative * * Negative 31 Urine Nitrite Negative Negative Urine Bilirubin Negative Negative Urine Glucose Negative Negative Urine White Blood Cell 3+(>10/hpf) Absent Urine Red Blood Cell 1+(<3/hpf) Absent Urine Bacteria 1+ Absent Urine Culture And 03/18/2014 Urine Culture (SEE NOTE) 32 Sensitivities CBC Auto Diff 01/11/2014 White Blood Count 6.1 10^3/uL 4.8-10.8 Red Blood Count 4.48 10^6/uL 4.0-5.4 Hemoglobin 13.3 g/dL 12.0-16.0 Hematocrit 40 % 35-47 Mean Corpuscular Volume 89 fL 80-97 Mean Corpuscular Hemoglobin 30 pg 27-31 Mean Corpuscular HGB Conc 34 g/dL 31-36 Red Cell Distribution Width 13 % 10.5-15 Platelet Count 273 10^3/uL 150-450 Mean Platelet Volume 7 um3 Low 7.4-10.4 Abs Neutrophils 4.7 10^3/uL 1.5-7.7 Abs Lymphocytes 0.8 10^3/uL Low 1.0-4.8 Abs Monocytes 0.5 10^3/uL 0-0.8 Abs Eosinophils 0.1 10^3/uL 0-0.6 Abs Basophils 0 10^3/uL 0-0.2 Abs Nucleated RBC 0 10^3/uL Granulocyte % 77.7 % 38-83 Lymphocyte % 12.4 % Low 25-47 Monocyte % 8.3 % 1-9 Eosinophil % 1.3 % 0-6 Basophil % 0.3 % 0-2 Nucleated Red Blood Cells % 0 Inr/Protime 01/11/2014 Inr 0.97 0.85-1.06 Laboratory test finding 01/11/2014 Activated Partial 30.7 seconds 24.0- 36.1 Thrombo Time B Type Natriuretic Peptide 168 pg/mL 33 Comp Metabolic Panel 01/11/2014 Sodium 137 mmol/L 133-145 Potassium 3.8 mmol/L 3.7-5.6 Chloride 104 mmol/L 101-111 Co2 Carbon Dioxide 26 mmol/L 22-32 Anion Gap 7 mmol/L 2-11 Glucose 129 mg/dL High 70-100 Blood Urea Nitrogen 14 mg/dL 6-24 Creatinine 0.80 mg/dL 0.51-0.95 BUN/Creatinine Ratio 17.5 8-20 Calcium 9.6 mg/dL 8.6-10.3 Total Protein 6.7 g/dL 6.4-8.9 Albumin 4.3 g/dL 3.2-5.2 Globulin 2.4 g/dL 2-4 Albumin/Globulin Ratio 1.8 1-3 Total Bilirubin 0.70 mg/dL 0.2-1.0 Alkaline Phosphatase 75 U/L 34-104 Alt 11 U/L 7-52 Ast 26 U/L 13-39 Egfr Non- 68.7 >60 Egfr 88.3 >60 34 Laboratory test finding 01/11/2014 Magnesium 2.1 mg/dL 1.9-2.7 Creatine Kinase 91 U/L 10-223 CKMB 01/11/2014 CKMB ng/mL 4.3 ng/mL 0.6-6.3 Laboratory test finding 01/11/2014 Troponin I 0.67 ng/mL <0.03 35 Myoglobin 61.9 ng/mL 14.3-65.8 CBC Auto Diff 01/08/2014 White Blood Count 5.0 10^3/uL 4.8-10.8 Red Blood Count 4.65 10^6/uL 4.0-5.4 Hemoglobin 13.8 g/dL 12.0-16.0 Hematocrit 41 % 35-47 Mean Corpuscular Volume 88 fL 80-97 Mean Corpuscular Hemoglobin 30 pg 27-31 Mean Corpuscular HGB Conc 34 g/dL 31-36 Red Cell Distribution Width 13 % 10.5-15 Platelet Count 271 10^3/uL 150-450 Mean Platelet Volume 7 um3 Low 7.4-10.4 Abs Neutrophils 3.5 10^3/uL 1.5-7.7 Abs Lymphocytes 1.1 10^3/uL 1.0-4.8 Abs Monocytes 0.4 10^3/uL 0-0.8 Abs Eosinophils 0.1 10^3/uL 0-0.6 Abs Basophils 0 10^3/uL 0-0.2 Abs Nucleated RBC 0 10^3/uL Granulocyte % 69.4 % 38-83 Lymphocyte % 20.9 % Low 25-47 Monocyte % 7.6 % 1-9 Eosinophil % 1.4 % 0-6 Basophil % 0.7 % 0-2 Nucleated Red Blood Cells % 0 Comp Metabolic Panel 01/08/2014 Sodium 136 mmol/L 133-145 Potassium 3.4 mmol/L Low 3.7-5.6 Chloride 101 mmol/L 101-111 Co2 Carbon Dioxide 31 mmol/L 22-32 Anion Gap 4 mmol/L 2-11 Glucose 132 mg/dL High 70-100 Blood Urea Nitrogen 16 mg/dL 6-24 Creatinine 0.79 mg/dL 0.51-0.95 BUN/Creatinine Ratio 20.3 High 8-20 Calcium 9.6 mg/dL 8.6-10.3 Total Protein 6.9 g/dL 6.4-8.9 Albumin 4.3 g/dL 3.2-5.2 Globulin 2.6 g/dL 2-4 Albumin/Globulin Ratio 1.7 1-3 Total Bilirubin 0.40 mg/dL 0.2-1.0 Alkaline Phosphatase 68 U/L 34-104 Alt 10 U/L 7-52 Ast 24 U/L 13-39 Egfr Non- 69.7 >60 Egfr 89.6 >60 36 Laboratory test finding 01/08/2014 Troponin I 0.66 ng/mL <0.03 37 Urine Culture And Sensitivities 08/14/2013 Urine Culture (SEE NOTE) 38 Urinalysis W/Microscopic 08/14/2013 Urine Color Yellow Urine Appearance Clear Urine Specific [place] 1.012 1.010-1.030 Urine Esterase Trace Negative Urine Nitrate Negative Negative Urine Urobilinogen Negative E.U./dL Negative Urine Protein Negative mg/dL Negative Urine pH 6.0 5-9 Urine Blood Negative Negative Urine Ketones Negative mg/dL Negative Urine Bilirubin Negative Negative Urine Glucose Negative mg/dL Negative Urine WBC None Seen None Seen Urine RBC None Seen None Seen Urine Epithelial Cells 1+ Squamous /hpf None Seen Bacteria Urine 1+ None Seen Ua Routine 08/08/2013 Ua Specific [place] 1.015 Ua PH 5 Ua Color yellow Ua Appera cloudy Ua WBC positive Ua Protein neg Ua Glucose neg Ua Ketones trace Ua Bilirubin neg Ua Urobilinogen neg Ua Nitrite positive Ua Occult Blood neg Lipid Profile (Trig/Chol/HDL) 08/06/2013 Triglycerides 77 mg/dL 40-200 Cholesterol 199 mg/dL Less than 200 HDL Cholesterol 64 mg/dL High 40-60 39 Cholesterol/HDL Ratio 3.1 Average 1-4.44 LDL Cholesterol 119.6 High Less Than 100 40 CBC Auto Diff 08/06/2013 White Blood Count 6.9 10^3/uL 4.8-10.8 Red Blood Count 5.01 10^6/uL 4.0-5.4 Hemoglobin 14.6 g/dL 12.0-16.0 Hematocrit 45 % 35-47 Mean Corpuscular Volume 90 fL 80-97 Mean Corpuscular Hemoglobin 29 pg 27-31 Mean Corpuscular HGB Conc 33 g/dL 31-36 Red Cell Distribution Width 13 % 10.5-15 Platelet Count 274 10^3/uL 150-450 Mean Platelet Volume 8 um3 7.4-10.4 Abs Neutrophils 4.4 10^3/uL 1.5-7.7 Abs Lymphocytes 1.6 10^3/uL 1.0-4.8 Abs Monocytes 0.5 10^3/uL 0-0.8 Abs Eosinophils 0.3 10^3/uL 0-0.6 Abs Basophils 0 10^3/uL 0-0.2 Abs Nucleated RBC 0 10^3/uL Neutrophil % 75 % 38-83 Band % 1 % 0-8 Lymphocytes % 12 % Low 25-47 Monocytes % 7 % 0-13 Eosinophils % 5 % 0-6 RBC Morphology Normal Normal Comp Metabolic Panel 08/06/2013 Sodium 137 mmol/L 133-145 Potassium 3.9 mmol/L 3.5-5.0 Chloride 99 mmol/L Low 101-111 Co2 Carbon Dioxide 31.0 mmol/L 22-32 Anion Gap 7.0 mmol/L 2-11 Glucose 91 mg/dL 70-100 Blood Urea Nitrogen 9 mg/dL 6-24 Creatinine 0.70 mg/dL 0.50-1.40 BUN/Creatinine Ratio 12.9 8-20 Calcium 9.7 mg/dL 8.1-9.9 Total Protein 7.0 g/dL 6.2-8.1 Albumin 4.4 g/dL 3.2-5.2 Globulin 2.6 g/dL 2-4 Albumin/Globulin Ratio 1.7 1-3 Total Bilirubin 0.8 mg/dL 0.4-1.5 Alkaline Phosphatase 77 U/L 30-110 Alt 14 U/L 14-54 Ast 24 U/L 12-42 Egfr Non- 80.3 >60 Egfr 103.3 >60 41 Ua Routine 02/21/2013 Ua Specific [place] 1.005 Ua PH 7.0 Ua Color yellow Ua Appera cloudy Ua WBC moderate Ua Protein +30 Ua Glucose neg Ua Ketones neg Ua Bilirubin small Ua Urobilinogen neg Ua Nitrite positive Ua Occult Blood non hem trace Urine Culture And Sensitivities 02/21/2013 Urine Culture (SEE NOTE) 42 Urine Culture And Sensitivities 10/23/2012 Urine Culture (SEE NOTE) 43 Ua Routine 10/23/2012 Ua Specific [place] 1.005 Ua PH 5 Ua Color yellow Ua Appera slightly cloudy Ua WBC trace Ua Protein negative Ua Glucose negative Ua Ketones negative Ua Bilirubin negative Ua Urobilinogen negative Ua Nitrite negative Ua Occult Blood negative CBC Auto Diff 07/31/2012 White Blood Count 4.4 10^3/uL Low 4.8-10.8 Red Blood Count 4.93 10^6/uL 4.0-5.4 Hemoglobin 15.0 g/dL 12.0-16.0 Hematocrit 45 % 35-47 Mean Corpuscular Volume 92 fL 80-97 Mean Corpuscular Hemoglobin 30 pg 27-31 Mean Corpuscular HGB Conc 33 g/dL 31-36 Red Cell Distribution Width 13 % 10.5-15 Platelet Count 285 10^3/uL 150-450 Mean Platelet Volume 8 um3 7.4-10.4 Abs Neutrophils 2.0 10^3/uL 1.5-7.7 Abs Lymphocytes 1.8 10^3/uL 1.0-4.8 Abs Monocytes 0.4 10^3/uL 0-0.8 Abs Eosinophils 0.1 10^3/uL 0-0.6 Abs Basophils 0 10^3/uL 0-0.2 Abs Nucleated RBC 0.01 10^3/uL Granulocyte % 46.2 % 38-83 Lymphocyte % 40.8 % 25-47 Monocyte % 9.3 % High 1-9 Eosinophil % 3.0 % 0-6 Basophil % 0.7 % 0-2 Nucleated Red Blood Cells % 0.1 Comp Metabolic Panel 07/31/2012 Sodium 138 mmol/L 133-145 Potassium 4.0 mmol/L 3.5-5.0 Chloride 103 mmol/L 101-111 Co2 Carbon Dioxide 30.0 mmol/L 22-32 Anion Gap 5.0 mmol/L 2-11 Glucose 83 mg/dL 70-100 Blood Urea Nitrogen 11 mg/dL 6-24 Creatinine 0.70 mg/dL 0.50-1.40 BUN/Creatinine Ratio 15.7 8-20 Calcium 9.5 mg/dL 8.1-9.9 Total Protein 6.2 GM/DL 6.2-8.1 Albumin 4.3 GM/DL 3.2-5.2 Globulin 1.9 GM/DL Low 2-4 Albumin/Globulin Ratio 2.3 1-3 Total Bilirubin 1.2 mg/dL High 0.1-1.0 44 Alkaline Phosphatase 74 U/L 30-110 Alt 14 U/L 14-54 Ast 22 U/L 12-42 Egfr Non- 80.5 >60 Egfr 103.5 >60 45 Laboratory test finding 07/31/2012 TSH (Thyroid Stimulating 3.28 MIU/ML 0.34-5.60 Horm) Lipid Profile 07/31/2012 Triglycerides 62 mg/dL 40-200 (Trig/Chol/HDL) Cholesterol 216 mg/dL High Less than 200 46 HDL Cholesterol 59 mg/dL 40-60 47 Cholesterol/HDL Ratio 3.7 AVERAGE 1-4.44 LDL Cholesterol 144.6 mg/dL High Less Than 100 Urine Culture & 03/07/2012 M <SEE 48 Sensitivi NOTE> Urine Culture & 08/17/2011 Urine Culture ESCHERICHIA COLI 49 Sensitivi Sensitivi Sensitivities For Urine 08/17/2011 Ampicillin <=2 Culture Amikacin <=2 Ciprofloxacin <=0.25 Ceftriaxone <=1 Cefazolin <=4 Nitrofurantoin <=16 Gentamicin <=1 Imipenem <=1 Levofloxacin <=0.12 Trimeth-Sulfa <=20 Ceftazidime <=1 Tigecycline <=0.5 Urinalysis W/Microscopic 08/17/2011 Ua Color ORANGE Yellow Appearance-Urine CLEAR Clear Specific [place]-Ur 1.009 Low 1.010-1.030 Esterase-Urine 3+ Negative Nitrite POSITIVE Negative Ryaaufsaeecs-Yn-VHJ NEGATIVE Negative Protein-Urine NEGATIVE Negative PH-Urine 6.0 5-9 Blood-Urine TRACE Negative Ketones-Urine NEGATIVE Negative Bilirubin-Ur NEGATIVE Negative Glucose-Urine NEGATIVE Negative WBC-Urine TNTC 0-5 RBC-Urine 0-2 0-2 Epith Cells-Ur SMALL None Bacteria-Urine 4+ None CBC With Manual Diff 04/26/2011 White Blood Count 4.5 CUMM Low 4.8-10.8 Red Cell Count 4.34 CUMM 4.2-5.4 Hemoglobin 13.1 g/dL 12.0-16.0 Hematocrit 41 % 35-47 Mean Corpuscular Volume 93 um3 79-97 Mean Corpuscular Hemoglob 30 pg 27-31 Mean Corpuscular HGB Cone 32 g/dL 32-36 Redcell Distribution WDTH 13 % 10.5-15 Platelet Count 273 CUMM 150-450 Mean Platelet Volume 7.6 um3 7.4-10.4 Polysegmented Neutrophil 56 % 38-83 Lymphocyte 39 % 25-47 Monocyte 4 % 0-13 Eosinophil 1 % 0-6 Absolute Neutrophil Count 2.5 RBC Morphology NORMAL Comp Metabolic Panel 04/26/2011 Sodium 136 mmol/L 135-145 Potassium 4.0 mmol/L 3.5-5.0 Chloride 100 mmol/L Low 101-111 Co2 (Carbon Dioxide) 29.0 mmol/L 22-32 Anion Gap 7.0 mmol/L 2-11 50 Glucose 88 mg/dL 70-100 BUN 12 mg/dL 6-24 Creatinine 0.80 mg/dL 0.50-1.40 One Over Creatinine 1.20 BUN/Creatinine Ratio 15.0 8-20 Calcium 9.8 mg/dL 8.1-9.9 Total Protein 6.4 GM/DL 6.2-8.1 Albumin 4.3 GM/DL 3.2-5.2 Globulin 2.1 GM/DL 2-4 Albumin/Globulin Ratio 2.0 1-3 Bilirubin Total 0.7 mg/dL 0.4-1.5 51 Alkaline Phosphatase 71 U/L 30-110 Alt (SGPT) 15 U/L 14-54 Ast (Sgot) 23 U/L 12-42 eGFR Non- 69.2 > 60 eGFR 89.0 > 60 52 Urine Culture & 03/02/2011 Urine Culture KLEBSIELLA PNEUM <SEE 53 Sensitivi Sensitivi NOTE> Urinalysis 03/02/2011 Ua Color ORANGE Yellow W/Microscopic Appearance-Urine CLOUDY Clear Specific [place]-Ur 1.016 1.010-1.030 Esterase-Urine 3+ Negative Nitrite POSITIVE Negative Pivsipkynrtr-Dp-MMI NEGATIVE Negative Protein-Urine NEGATIVE Negative PH-Urine 6.5 5-9 Blood-Urine 1+ Negative Ketones-Urine NEGATIVE Negative Bilirubin-Ur NEGATIVE Negative Glucose-Urine NEGATIVE Negative WBC-Urine TNTC 0-5 RBC-Urine 1-5 0-2 Epith Cells-Ur MODERATE None Bacteria-Urine 4+ None Sensitivities For Urine Culture 03/02/2011 Ampicillin >=32 Amikacin <=2 Ciprofloxacin <=0.25 Ceftriaxone <=1 Cefazolin <=4 Nitrofurantoin 64 Gentamicin <=1 Imipenem <=1 Levofloxacin <=0.12 Trimeth-Sulfa <=20 Ceftazidime <=1 Tigecycline <=0.5 Piperacillin/Tazobactam <=4 Urine Culture & Sensitivi 10/16/2010 Urine Culture ESCHERICHIA COLI 54 Sensitivi Sensitivities For Urine 10/16/2010 Ampicillin 4 Culture Amikacin <=2 Ciprofloxacin <=0.25 Ceftriaxone <=1 Cefazolin <=4 Nitrofurantoin <=16 Gentamicin <=1 Imipenem <=1 Levofloxacin <=0.12 Trimeth-Sulfa <=20 Ceftazidime <=1 Tigecycline <=0.5 Piperacillin/Tazobactam KB 28 DR Gibbons's Lab Panel 05/14/2010 TSH 1.65 MIU/ML 0.34-5.60 Comp Metabolic Panel 05/14/2010 Sodium 137 mmol/L 135-145 Potassium 4.1 mmol/L 3.5-5.0 Chloride 100 mmol/L Low 101-111 Co2 (Carbon Dioxide) 29.0 mmol/L 22-32 Anion Gap 8.0 mmol/L 2-11 55 Glucose 79 mg/dL 70-100 56 BUN 10 mg/dL 6-24 Creatinine 0.80 mg/dL 0.50-1.40 One Over Creatinine 1.20 BUN/Creatinine Ratio 12.5 8-20 Calcium 9.4 mg/dL 8.1-9.9 57 Total Protein 6.6 GM/DL 6.2-8.1 Albumin 4.3 GM/DL 3.2-5.2 Globulin 2.3 GM/DL 2-4 Albumin/Globulin Ratio 1.9 1-3 Bilirubin Total 0.9 mg/dL 0.4-1.5 58 Alkaline Phosphatase 78 U/L 30-110 Alt (SGPT) 16 U/L 14-54 Ast (Sgot) 23 U/L 12-42 eGFR Non- 73.7 > 60 eGFR 89.2 > 60 59 Lipid Profile (Trig/Chol/HDL) 05/14/2010 Triglyceride 133 mg/dL 40-200 Cholesterol 229 mg/dL High Less Than 200 60 High Density Lipoprotein 53 mg/dL 40-60 61 Cholesterol/HDL Ratio 4.32 AVERAGE 1-4.44 Low Density Lipoprotein 149 mg/dL High Less Than 100 62 CBC With Electronic Diff 05/14/2010 White Blood Count 4.2 CUMM Low 4.8- 10.8 Red Cell Count 4.48 CUMM 4.2-5.4 Hemoglobin 14.2 g/dL 12.0-16.0 Hematocrit 42 % 35-47 Mean Corpuscular Volume 94 um3 79-97 Mean Corpuscular Hemoglob 32 pg High 27-31 Mean Corpuscular HGB Cone 34 g/dL 32-36 Redcell Distribution WDTH 13 % 10.5-15 Platelet Count 281 CUMM 150-450 Mean Platelet Volume 6.5 um3 Low 7.4-10.4 Gran % 51.0 % 38-83 Lymph % 38.1 % 25-47 Mononuclear % 8.0 % 1-9 Eosinophil % 2.3 % 0-6 Basophil % 0.6 % 0-2 Abs Lymphs 1.6 1.0-4.8 Abs Mononuclear 0.3 0-0.8 Absolute Neutrophil Count 2.1 1.5-7.7 Abs Eosinophils 0.1 0-0.6 Abs Basophils 0 0-0.2 Basic Metabolic Panel 03/20/2009 Sodium 137 mmol/L 135-145 Potassium 4.4 mmol/L 3.5-5.0 Chloride 103 mmol/L 101-111 Co2 (Carbon Dioxide) 31.0 mmol/L 22-32 Anion Gap 3.0 mmol/L 2-11 63 Glucose 87 mg/dL 70-100 64 BUN 16 mg/dL 6-24 Creatinine 0.70 mg/dL 0.50-1.40 One Over Creatinine 1.40 BUN/Creatinine Ratio 22.9 High 8-20 Calcium 9.8 mg/dL 8.1-9.9 65 Laboratory test finding 02/04/2008 TSH 1.39 MIU/ML 0.34-5.60 66 Lipid Profile 02/04/2008 Cholesterol/HDL 3.98 AVERAGE 1-4.44 66 (Trig/Chol/HDL) Ratio Cholesterol 195 mg/dL Less Than 200 66, 67 Triglyceride 76 mg/dL 40-200 66 High Density Lipoprotein 49 mg/dL 40-60 66, 68 Low Density Lipoprotein 131 mg/dL High Less Than 100 66, 69 Comp Metabolic Panel 02/04/2008 One Over Creatinine 1.11 66 Anion Gap 2.0 mmol/L 2-11 66, 70 Albumin/Globulin Ratio 1.4 1-3 66 Albumin 3.9 GM/DL 3.2-5.2 66 Alkaline Phosphatase 77 U/L 30-110 66 Alt (SGPT) 25 U/L 14-54 66 Ast (Sgot) 29 U/L 12-42 66 BUN 13 mg/dL 6-24 66 Calcium 9.3 mg/dL 8.7-10.2 66 Chloride 106 mmol/L 101-111 66 Co2 (Carbon Dioxide) 30.0 mmol/L 22-32 66 Globulin 2.8 GM/DL 2-4 66 Glucose 94 mg/dL 70-105 66 Potassium 3.9 mmol/L 3.5-5.0 66 Sodium 138 mmol/L 135-145 66 Bilirubin Total 1.0 mg/dL 0.4-1.5 66 Total Protein 6.7 GM/DL 6.2-8.1 66 BUN/Creatinine Ratio 14.4 8-20 66 Creatinine 0.9 mg/dL 0.5-1.4 66 CBC With Electronic Diff 02/04/2008 White Blood Count 5.4 CUMM 4.8-10.8 66 Abs Basophils 0 0-0.2 66 Abs Eosinophils 0.2 0-0.6 66 Absolute Neutrophil Count 3.3 1.5-7.7 66 Abs Lymphs 1.4 1.0-4.8 66 Abs Mononuclear 0.4 0-0.8 66 Basophil % 0.6 % 0-2 66 Hematocrit 42 % 35-47 66 Hemoglobin 14.1 g/dL 12.0-16.0 66 Eosinophil % 4.5 % 0-6 66 Gran % 61.0 % 38-83 66 Lymph % 26.3 % 20-45 66 Mean Corpuscular HGB Cone 34 g/dL 32-36 66 Mean Corpuscular Hemoglob 30 pg 27-31 66 Mean Corpuscular Volume 89 um3 79-97 66 Mean Platelet Volume 7.8 um3 7.4-10.4 66 Mononuclear % 7.6 % 1-9 66 Platelet Count 370 CUMM 150-450 66 Red Cell Count 4.70 CUMM 4.2-5.4 66 Redcell Distribution WDTH 13 % 10.5-15 66 1 Because ethnic data is not always readily available, this report includes an eGFR for both -Americans and non- Americans. The National Kidney Disease Education Program (NKDEP) does not endorse the use of the MDRD equation for patients that are not between the ages of 18 and 70, are , have extremes of body size, muscle mass, or nutritional status, or are non- or non-. According to the National Kidney Foundation, irrespective of diagnosis, the stage of the disease is based on the level of kidney function: Stage Description GFR(mL/min/1.73 m(2)) 1 Kidney damage with normal or decreased GFR 90 2 Kidney damage with mild decrease in GFR 60-89 3 Moderate decrease in GFR 30-59 4 Severe decrease in GFR 15-29 5 Kidney failure <15 (or dialysis) 2 Because ethnic data is not always readily available, this report includes an eGFR for both -Americans and non- Americans. The National Kidney Disease Education Program (NKDEP) does not endorse the use of the MDRD equation for patients that are not between the ages of 18 and 70, are , have extremes of body size, muscle mass, or nutritional status, or are non- or non-. According to the National Kidney Foundation, irrespective of diagnosis, the stage of the disease is based on the level of kidney function: Stage Description GFR(mL/min/1.73 m(2)) 1 Kidney damage with normal or decreased GFR 90 2 Kidney damage with mild decrease in GFR 60-89 3 Moderate decrease in GFR 30-59 4 Severe decrease in GFR 15-29 5 Kidney failure <15 (or dialysis) 3 Desirable: <150 Borderline High: 150-199 High: 200-499 Very High: >500 4 Desirable: <200 Borderline High: 200-239 High: >239 5 Low: <40 Desirable: 40-60 High: >60 6 Desirable: <100 Near Optimal: 100-129 Borderline High: 130-159 High: 160-189 Very High: >189 7 Because ethnic data is not always readily available, this report includes an eGFR for both -Americans and non- Americans. The National Kidney Disease Education Program (NKDEP) does not endorse the use of the MDRD equation for patients that are not between the ages of 18 and 70, are , have extremes of body size, muscle mass, or nutritional status, or are non- or non-. According to the National Kidney Foundation, irrespective of diagnosis, the stage of the disease is based on the level of kidney function: Stage Description GFR(mL/min/1.73 m(2)) 1 Kidney damage with normal or decreased GFR 90 2 Kidney damage with mild decrease in GFR 60-89 3 Moderate decrease in GFR 30-59 4 Severe decrease in GFR 15-29 5 Kidney failure <15 (or dialysis) 8 FASTING 9 Desirable <150 Borderline high 150-199 High 200-499 Very High >500 10 Desirable <200 Borderline high 200-239 High >239 11 Low <40 Desirable: 40-60 High: >60 12 Desirable: <100 mg/dL Near Optimal: 100-129 mg/dL Borderline High: 130-159 mg/dL High: 160-189 mg/dL Very High: >189 mg/dL 13 *Ascorbic acid is present which may interfere with detection of blood. 14 Because ethnic data is not always readily available, this report includes an eGFR for both -Americans and non- Americans. The National Kidney Disease Education Program (NKDEP) does not endorse the use of the MDRD equation for patients that are not between the ages of 18 and 70, are , have extremes of body size, muscle mass, or nutritional status, or are non- or non-. According to the National Kidney Foundation, irrespective of diagnosis, the stage of the disease is based on the level of kidney function: Stage Description GFR(mL/min/1.73 m(2)) 1 Kidney damage with normal or decreased GFR 90 2 Kidney damage with mild decrease in GFR 60-89 3 Moderate decrease in GFR 30-59 4 Severe decrease in GFR 15-29 5 Kidney failure <15 (or dialysis) 15 Acute inflammation: >10.00 16 SEE RESULT BELOW Name: ALPA KEARNEY : [address]: Aaron Gibbons III, MD Acct: [id number] Unit: [id number] AGE: 85 Location: [facility] Re11/02/15 SEX: F Status: REG REF SPEC: [id number] MICHAELA: 11/02/[address]: Aaron Gibbons III, MD REQ: [id number] RECD: 11/02/15 STATUS: COMP _ SOURCE: URINE SPDESC: ORDERED: Urine Culture Procedure Result Reported Site Urine Culture Final 11/03/15- 1733 ML No growth of clinically significant organisms * ML - MAIN LAB ([facility]) . END OF REPORT * ML=Testing performed at Main Lab DEPARTMENT OF PATHOLOGY, [address] [place] [address] Gabriele Ravi M.D. Director [facility] # [id number] 17 Because ethnic data is not always readily available, this report includes an eGFR for both -Americans and non- Americans. The National Kidney Disease Education Program (NKDEP) does not endorse the use of the MDRD equation for patients that are not between the ages of 18 and 70, are , have extremes of body size, muscle mass, or nutritional status, or are non- or non-. According to the National Kidney Foundation, irrespective of diagnosis, the stage of the disease is based on the level of kidney function: Stage Description GFR(mL/min/1.73 m(2)) 1 Kidney damage with normal or decreased GFR 90 2 Kidney damage with mild decrease in GFR 60-89 3 Moderate decrease in GFR 30-59 4 Severe decrease in GFR 15-29 5 Kidney failure <15 (or dialysis) 18 FASTING 19 FASTING 20 FASTING 21 Desirable <150 Borderline high 150-199 High 200-499 Very High >500 22 Desirable <200 Borderline high 200-239 High >239 23 Low <40 Desirable: 40-60 High: >60 24 Desirable: <100 mg/dL Near Optimal: 100-129 mg/dL Borderline High: 130-159 mg/dL High: 160-189 mg/dL Very High: >189 mg/dL 25 FASTING 26 FASTING 27 Desirable <150 Borderline high 150-199 High 200-499 Very High >500 28 Desirable <200 Borderline high 200-239 High >239 29 Low <40 Desirable: 40-60 High: >60 30 Desirable <100 Near Optimal 100-129 Borderline high 130-159 High 160-189 Very High >189 31 *Ascorbic acid is present which may interfere with detection of blood. 32 RUN DATE: 03/20/14 [facility] LAB LIVE PAGE 1 RUN TIME: 100[address] [place], [place] [address] Specimen Inquiry Name: ALPA KEARNEY : [address]: Aaron Gibbons III, MD Acct: [id number] Unit: [id number] AGE: 83 Location: [facility] Re03/18/14 SEX: F Status: REG REF SPEC: [id number] MICHAELA: 03/18/14-[address] [facility] [address]: Aaron Gibbons III, MD REQ: [id number] RECD: 03/18/14-1609 STATUS: COMP _ SOURCE: URINE SPDESC: ORDERED: Urine Culture QUERIES: Medent Number [id number] Urine Source: Random Procedure Result Verified Site Urine Culture Final 03/20/14- 1003 ML Organism 1 ENTEROBACTER CLOACAE COMPLEX [place] Count >100,000 (Many) CFU/ML 1. ENTEROBACTER CLOACAE COMPLEX [facility].I.C. RX --------- ------ Cefazolin R Cefepime <=1 S Ceftriaxone <=1 S Ciprofloxacin <=0.25 S Gentamicin <=1 S Levofloxacin <=0.12 S Meropenem <=0.25 S Nitrofurantoin 64 I Tetracycline 2 S Pipercillin/Tazobactam <=4 S Trimethoprim/Sulfamethoxazole <=20 S Amoxicillin/Clavulanic Acid R Aztreonam <=1 S Contact the Microbiology Department for any additional antibiotic reporting. END OF REPORT * ML=Testing performed at Main Lab DEPARTMENT OF PATHOLOGY, [address] [place] [address] Gabriele Ravi M.D. Director [facility] # [id number] 33 >100 to <200 pg/mL: likely compensated congestive heart failure (CHF) 200 to 400 pg/mL: likely moderate CHF >400 pg/mL: likely moderate to severe CHF [place] [facility] 34 Because ethnic data is not always readily available, this report includes an eGFR for both -Americans and non- Americans. The National Kidney Disease Education Program (NKDEP) does not endorse the use of the MDRD equation for patients that are not between the ages of 18 and 70, are , have extremes of body size, muscle mass, or nutritional status, or are non- or non-. According to the National Kid[employer] Foundation, irrespective of diagnosis, the stage of the disease is based on the level of kidney function: Stage Description GFR(mL/min/1.73 m(2)) 1 Kidney damage with normal or decreased GFR 90 2 Kidney damage with mild decrease in GFR 60-89 3 Moderate decrease in GFR 30-59 4 Severe decrease in GFR 15-29 5 Kidney failure <15 (or dialysis) 35 Result TnIDx:0.67 Called to [id number] at: 12:59:35 by:[id number] Read back by: [id number] Reference Range and Interpretation: TnI (ng/mL) Interpretation Less Than 0.03 ng/mL Not supportive of diagnosis of NV 0.03 - 0.50 ng/mL Indeterminate: suggest serial studies if clinically indicated. Greater than 0.5 ng/mL Consistent with diagnosis of NV 36 Because ethnic data is not always readily available, this report includes an eGFR for both -Americans and non- Americans. The National Kidney Disease Education Program (NKDEP) does not endorse the use of the MDRD equation for patients that are not between the ages of 18 and 70, are , have extremes of body size, muscle mass, or nutritional status, or are non- or non-. According to the National Kidney Foundation, irrespective of diagnosis, the stage of the disease is based on the level of kidney function: Stage Description GFR(mL/min/1.73 m(2)) 1 Kidney damage with normal or decreased GFR 90 2 Kidney damage with mild decrease in GFR 60-89 3 Moderate decrease in GFR 30-59 4 Severe decrease in GFR 15-29 5 Kidney failure <15 (or dialysis) 37 Result TnIDx:0.66 Called to [id number] at: 19:50:58 by:[id number] Read back by: [id number] Reference Range and Interpretation: TnI (ng/mL) Interpretation Less Than 0.03 ng/mL Not supportive of diagnosis of NV 0.03 - 0.50 ng/mL Indeterminate: suggest serial studies if clinically indicated. Greater than 0.5 ng/mL Consistent with diagnosis of NV 38 RUN DATE: 08/16/13 [facility] LAB LIVE PAGE 1 RUN TIME: 5704 [address] [place], [place] [address] Specimen Inquiry Name: ALPA KEARNEY : [address]: Aaron Gibbons III, MD Acct: [id number] Unit: [id number] AGE: 82 Location: [facility] Re08/14/13 SEX: F Status: REG REF SPEC: [id number] MICHAELA: 08/14/13-[address] [facility] [address]: Aaron Gibbons III, MD REQ: [id number] RECD: 08/14/13 STATUS: COMP _ SOURCE: URINE SPDESC: ORDERED: Urine Culture QUERIES: Medent Number [id number] Procedure Result Verified Site Urine Culture Final 08/16/13- 1130 ML Organism 1 NORMAL ARABELLA [place] Count 10-25,000 (Moderate) CFU/ML END OF REPORT * ML=Testing performed at Main Lab DEPARTMENT OF PATHOLOGY, [facility] [address] [place], [place] [address] Gabriele Ravi M.D. Director [facility] Permit #[id number] HDL Interpretation: Undesirable: High Risk: Less than 40 mg/dL Desirable: Low Risk: Greater than 60 mg/dL 40 LDL Interpretation: Low Risk Optimal Level: LDL Less than 100 mg/dL Near or Above Optimal: LDL 100-129 mg/dL Borderline High Risk: LDL 130-159 mg/dL High Risk: LDL 160-189 mg/dL Very High Risk: LDL Greater than 189 mg/dL 41 Because ethnic data is not always readily available, this report includes an eGFR for both -Americans and non- Americans. The National Kidney Disease Education Program (NKDEP) does not endorse the use of the MDRD equation for patients that are not between the ages of 18 and 70, are , have extremes of body size, muscle mass, or nutritional status, or are non- or non-. According to the National Kidney Foundation, irrespective of diagnosis, the stage of the disease is based on the level of kidney function: Stage Description GFR(mL/min/1.73 m(2)) 1 Kidney damage with normal or decreased GFR 90 2 Kidney damage with mild decrease in GFR 60-89 3 Moderate decrease in GFR 30-59 4 Severe decrease in GFR 15-29 5 Kidney failure <15 (or dialysis) 42 RUN DATE: 02/23/13 [facility] LAB LIVE PAGE 1 RUN TIME: 909 [facility] [address] [place], [place] [address] Specimen Inquiry Name: ALPA KEARNEY : [address]: Anastasiya Dhillon MD Acct: [id number] Unit: [id number] AGE: 82 Location: [facility] Re02/21/13 SEX: F Status: REG REF SPEC: [id number] MICHAELA: 02/21/13-[address] [facility] [address]: Anastasiya Dhillon MD REQ: [id number] RECD: 02/21/13 STATUS: COMP _ SOURCE: URINE SPDESC: ORDERED: Urine Culture QUERIES: Medent Number [id number] Procedure Result Verified Site Urine Culture Final 02/23/13- 0910 ML Organism 1 ESCHERICHIA COLI [place] Count >100,000 (Many) CFU/ML 1. ESCHERICHIA COLI M.I.C. RX --------- ------ Ampicillin <=2 S Cefazolin <=4 S Cefepime <=1 S Ceftriaxone <=1 S Ciprofloxacin <=0.25 S Gentamicin <=1 S Imipenem <=0.25 S Levofloxacin <=0.12 S Meropenem <=0.25 S Nitrofurantoin <=16 S Tetracycline <=1 S Pipercillin/Tazobactam <=4 S Trimethoprim/Sulfamethoxazole <=20 S Amoxicillin/Clavulanic Acid <=2 S Aztreonam <=1 S Contact the Microbiology Department for any additional antibiotic reporting. END OF REPORT * ML=Testing performed at Main Lab DEPARTMENT OF PATHOLOGY, [facility] [address] [place] [address] Gabriele Ravi M.D. Director [facility] Permit #[id number] RUN DATE: 10/25/12 [facility] LAB LIVE PAGE 1 RUN TIME: 1112 [facility] [address] [place], [place] [address] Specimen Inquiry Name: ALPA KEARNEY : [address]: Lisa Hernandez NP Acct: [id number] Unit: [id number] AGE: 82 Location: [facility] Re10/23/12 SEX: F Status: REG REF SPEC: [id number] MICHAELA: 10/23/12-[address]: Lisa Hernandez NP REQ: [id number] RECD: 10/23/12 STATUS: COMP _ SOURCE: URINE SPDESC: ORDERED: Urine Culture QUERIES: Medent Number [id number] Procedure Result Verified Site Urine Culture Final 10/25/12- 1111 ML Organism 1 NORMAL ARABELLA [place] Count 75-100,000 (Many) CFU/ML END OF REPORT * ML=Testing performed at Main Lab DEPARTMENT OF PATHOLOGY, [address] [place] [address] Gabriele Ravi M.D. Director [facility] Permit #[id number] 44 A metabolite of Naproxen, O-desmethylnaproxen, has been shown to interfere with the Jendrkjik-Lowrey method for measuring total bilirubin. Samples from patients who have taken Naproxen have shown spurious elevation in total bilirubin levels. 45 Because ethnic data is not always readily available, this report includes an eGFR for both -Americans and non- Americans. The National Kidney Disease Education Program (NKDEP) does not endorse the use of the MDRD equation for patients that are not between the ages of 18 and 70, are , have extremes of body size, muscle mass, or nutritional status, or are non- or non-. According to the National Kidney Foundation, irrespective of diagnosis, the stage of the disease is based on the level of kidney function: Stage Description GFR(mL/min/1.73 m(2)) 1 Kidney damage with normal or decreased GFR 90 2 Kidney damage with mild decrease in GFR 60-89 3 Moderate decrease in GFR 30-59 4 Severe decrease in GFR 15-29 5 Kidney failure <15 (or dialysis) 46 Desirable: Less than 200 MG/DL Borderline-High Risk: 200-239 MG/DL High-Risk: 240 MG/DL and over 47 HDL Interpretation: Undesirable: High Risk: Less than 40 MG/DL Desirable: Low Risk: Greater than 60 MG/DL 48 RUN DATE: 03/10/12 [facility] NMI LIVE PAGE 1 RUN TIME: 826 Specimen Inquiry RUN USER: INTERFACE Name: ALPA KEARNEY Status: REG REF Re03/07/12 Age/Sex: 81/F Unit#: [id number] Location: [facility] : [birth year] SPEC #: [id number] MICHAELA: 03/07/12-101 STATUS: COMP REQ #: [id number] RECD: 03/07/[address] [facility] [address]: Surinder DUTTA,Alyce Caldera SOURCE: URINE ENTR: 03/07/12-[address] ORDERED: URINE C S QUERIES: MEDENT REQUISITION # [id number] Procedure Result Verified Site > URINE CULTURE SENSITIVI Final 03/10/12- 826 ML Organism 1 GROUP D ENTEROCOCCUS COLONY COUNT 50-75,000 ORGANISMS/ML (MANY) 1. GROUP D ENTEROCOCCUS RX M.I.C. ------ --------- PENICILLIN S 4 LEVOFLOXACIN S 1 TETRACYCLINE R >=16 AMPICILLIN S <=2 CIPROFLOXACIN S <=0.5 TIGECYCLINE S <=0.12 NITROFURANTOIN S 32 VANCOMYCIN S 2 HIGH LEVEL GENTAMICIN S SYN-S HIGH LEVEL STREPTOMYCIN S SYN-S +AMPICILLIN/SUBLACTAM S +IMIPENEM S +These results are deduced according to CLSI guidelines as they are related to tested antimicrobials with almost identical spectrum of activity. *These antibiotics are not available in the [facility] Formulary. Contact the Microbiology Department for any additional antibiotic reporting. ML - [facility] State Permit #[id number] [address] [place] [address] DEPARTMENT OF PATHOLOGY, [address] [place] [address] [place] State Permit #[id number] Gabriele Ravi M.D. Director Sebastián Nava M.D. Study Specialist 49 >100^>100,000 ORGANISMS/ML (MANY)^CCU 50 Anion gap measurement may be of limited value in the presence of any alkalosis, especially in a combined acid base disorder. . 51 A metabolite of Naproxen, O-desmethylnaproxen, has been shown to interfere with the Jendrassik-Lowrey method for measuring total bilirubin. Samples from patients who have taken Naproxen have shown spurious elevation in total bilirubin levels. 52 Because ethnic data is not always readily available, this report includes an eGFR for both -Americans and non- Americans. The National Kidney Disease Education Program (NKDEP) does not endorse the use of the MDRD equation for patients that are not between the ages of 18 and 70, are , have extremes of body size, muscle mass, or nutritional status, or are non- or non-. According to the National Kidney Foundation, irrespective of diagnosis, the stage of the disease is based on the level of kidney function: Stage Description GFR(mL/min/1.73 m(2)) 1 Kidney damage with normal or decreased GFR 90 2 Kidney damage with mild decrease in GFR 60-89 3 Moderate decrease in GFR 30-59 4 Severe decrease in GFR 15-29 5 Kidney failure <15 (or dialysis) 53 KLEBSIELLA PNEUMONIAE >100^>100,000 ORGANISMS/ML (MANY)^CCU 54 >100^>100,000 ORGANISMS/ML (MANY)^CCU 55 Anion gap measurement may be of limited value in the presence of any alkalosis, especially in a combined acid base disorder. . 56 Note change in reference range as of 05/29/08. The change was based on recommendations from the [place] [employer]. 57 Please note change in reference range effective 08 . 58 A metabolite of Naproxen, O-desmethylnaproxen, has been shown to interfere with the Jendrassik-Lowrey method for measuring total bilirubin. Samples from patients who have taken Naproxen have shown spurious elevation in total bilirubin levels. 59 Because ethnic data is not always readily available, this report includes an eGFR for both -Americans and non- Americans. The National Kidney Disease Education Program (NKDEP) does not endorse the use of the MDRD equation for patients that are not between the ages of 18 and 70, are , have extremes of body size, muscle mass, or nutritional status, or are non- or non-. According to the National Kidney Foundation, irrespective of diagnosis, the stage of the disease is based on the level of kidney function: Stage Description GFR(mL/min/1.73 m(2)) 1 Kidney damage with normal or decreased GFR 90 2 Kidney damage with mild decrease in GFR 60-89 3 Moderate decrease in GFR 30-59 4 Severe decrease in GFR 15-29 5 Kidney failure <15 (or dialysis) 60 CHOLESTEROL INTERPRETATION: Desirable: Less than 200 MG/DL Borderline-High Risk: 200-239 MG/DL High-Risk: 240 MG/DL and over 61 HDL INTERPRETATION: Undesirable: High Risk: Less than 40 MG/DL Desirable: Low Risk: Greater than 60 MG/DL 62 LDL INTERPRETATION: Low Risk Optimal Level: LDL Less than 100 MG/DL Near or Above Optimal: LDL 100-129 MG/DL Borderline High Risk: LDL 130-159 MG/DL High Risk: LDL 160-189 MG/DL Very High Risk: LDL Greater than 189 MG/DL 63 Anion gap measurement may be of limited value in the presence of any alkalosis, especially in a combined acid base disorder. . 64 Note change in reference range as of 05/29/08. The change was based on recommendations from the [place] [employer]. 65 Please note change in reference range effective 08 . 66 PATIENT MAY HAVE RESULTS PER DOCTOR'S AUTHORIZATION. Questions regarding this report should be directed to your doctor. 67 CHOLESTEROL INTERPRETATION: Desirable: Less than 200 MG/DL Borderline-High Risk: 200-239 MG/DL High-Risk: 240 MG/DL and over 68 HDL INTERPRETATION: Undesirable: High Risk: Less than 40 MG/DL Desirable: Low Risk: Greater than 60 MG/DL 69 LDL INTERPRETATION: Low Risk Optimal Level: LDL Less than 100 MG/DL Near or Above Optimal: LDL 100-129 MG/DL Borderline High Risk: LDL 130-159 MG/DL High Risk: LDL 160-189 MG/DL Very High Risk: LDL Greater than 189 MG/DL 70 Anion gap measurement may be of limited value in the presence of any alkalosis, especially in a combined acid base disorder. . Procedures Date CPT Code Description Status 05/10/2018 31844 EKG Tracing & Interpretation Completed 09/21/2017 Mammogram Completed 09/21/2017 Bone Mineral Density Test Completed 08/02/2016 Diabetic Retinal Eye Exam Completed 04/18/2016 84884 EKG Tracing & Interpretation Completed 09/09/2015 Mammogram Completed 09/09/2015 Bone Mineral Density Test Completed 04/20/2015 99583 EKG Tracing & Interpretation Completed 11/28/2014 99809 EKG Tracing & Interpretation Completed 10/06/2014 84410 Xray Knee 3 Views Completed 09/10/2014 83200 Xray Knee 3 Views Completed 09/10/2014 15294 Rad Exam; Knee, Ap&L Completed 09/10/2014 21196 Dislocation patella closed tx w/o anesthesia Completed 09/10/2014 33891 FX Patella Care Completed 02/25/2014 04750 ECHO Transthoracic, Real-Time 2D With Doppler And Color Completed Flow 01/16/2014 00828 EKG Tracing & Interpretation Completed 01/13/2014 46664 EKG, Interpretation Only Completed 01/12/2014 50119 EKG, Interpretation Only Completed 01/11/2014 84737 Cath PLMT&NJX L Ventriculog Img S&I Completed 01/11/2014 62840 EKG, Interpretation Only Completed 01/11/2014 50120 Percutaneous Transcatheter Placement Of Intracoronary Completed Stent 01/10/2014 95824 EKG, Interpretation Only Completed 01/09/2014 97996 Left Heart Cath. Incl S/I Coronaries, Angio S/I V Gram Completed If Done 01/09/2014 91008 EKG, Interpretation Only Completed 01/09/2014 66819 Revascularization Acute Total/Subtotal Occlusion Completed 01/09/2014 34184 Revascularization Acute Total/Subtotal Occlusion Completed 08/21/2013 Mammogram Completed 07/24/2012 Bone Mineral Density Test Completed 07/24/2012 Mammogram Completed 05/17/2012 19895 Rad Exam; Pelvis Completed 05/17/2012 20848 Rad Exam; Hip Unilat Completed 06/27/2011 18238 Rad Exam; Pelvis Completed 06/27/2011 12703 Rad Exam; Hip Unilat Completed 05/17/2011 63007 THR Total Hip Replacement Completed 05/17/2011 73640 THR Total Hip Replacement Completed 04/26/2011 95107 EKG Tracing & Interpretation Completed 02/16/2011 08549 Rad Exam; Hip Unilat Completed 02/16/2011 04862 Rad Exam; Pelvis Completed 11/29/2010 Mammogram Completed 02/11/2009 Colonoscopy Completed Encounters Type Date Location Provider CPT E/M Dx Office Visit 04/30/2018 [facility] Glenna Peguero M.D. 41632 M25.551 9:30a Of Dante M16.11 Office Visit 04/18/2018 2:00p [facility] Internal Medicine Aaron Gibbons, 11293 M25.551 - Angel Racehl Office Visit 02/26/2018 2:20p [facility] Internal Medicine Aaron Gibbons, 52019 I10 - Angel Rachel I25.10 E78.2 M85.9 L98.9 Office Visit 10/16/2017 1:00p [facility] Internal Aaron Gibbons, 63815 M85.831 Medicine - Anegl Racehl Office Visit 10/06/2017 12:06p [facility] Susi Bee, LUZMARIA 05175 R23.8 R23.8 Office Visit 10/04/2017 11:46a [facility] Susi Plascenciach, LUZMARIA 23009 R23.8 Office Visit 05/04/2017 10:40a [facility] Internal Aaron Gibbons, 48073 Z01.810 Stanford Ortiz M.D. H26.9 I10 I25.10 E78.2 M85.9 Office Visit 02/22/2017 11:20a [facility] Internal Medicine - Aaron Gibbons, 24447 I10 Angel Rachel E78.2 I25.10 M85.9 Office Visit 04/18/2016 2:40p [facility] Sebastián Barker M.D., 36208 I10 AT [facility] E78.2 I25.10 Office Visit 02/22/2016 10:40a [facility] Internal Medicine - Aaron Gibbons, 42417 I10 Gagan Rachel E78.2 I25.10 Office Visit 12/31/2015 11:20a [facility] Internal Medicine Aaron Gibbons, 25171 M79.652 - Gagan Rachel Office Visit 10/28/2015 4:00p [facility] Internal Medicine Aaron Gibbons, 02510 R10.813 - Gagan Rachel Office Visit 04/20/2015 11:20a [facility] Sebastián Barker M.D., 20255 401.1 [facility] 414.9 272.2 Office Visit 02/17/2015 2:00p [facility] Internal Medicine Aaron Gibbons, 95961 401.1 - Gagan Rachel 569.3 414.01 681.11 V03.82 V06.1 Office Visit 12/10/2014 11:40a [facility] Internal Medicine Aaron Gibbons, 77285 569.3 - Gagan Rachel 723.1 Office Visit 11/28/2014 3:20p [facility] Sebastián Barker M.D., 20470 401.1 [facility] AT [facility] 414.9 272.2 Office Visit 05/16/2014 2:15p [facility] Of Sebastián Barker M.D., 31777 414.9 [facility] AT [facility] 401.1 272.2 Office Visit 03/04/2014 2:45p [facility] Sebastián Barker M.D., 68868 414.9 [facility] AT [facility] 401.1 272.2 Office Visit 02/17/2014 3:40p [facility] Internal Medicine Aaron Gibbons, 99419 414.01 - Gagan Rachel 401.1 272.2 Office Visit 01/16/2014 2:45p [facility] Viktoriya Barker M.D., 59995 414.01 [facility] AT [facility] 401.1 272.2 Office Visit 01/13/2014 11:21a [facility] Viktoriya Barker M.D., 52830 413.9 [facility] 411[facility]1 414.9 Office Visit 01/12/2014 9:30a [facility] Dev Smith, 29184 786.50 MRomario 785.0 414.01 410.71 Office Visit 01/11/2014 3:46p [facility] Dev Smith M.D. 66222 411.1 410.71 401.1 Office Visit 01/10/2014 10:37a [facility] Viktoriya Barker M.D., 02908 413.9 [facility] 411.1 Office Visit 01/10/2014 7:47p [facility] Kenn Del Angel 21587 410.71 Hospitalists Virginie Higgins 401.1 Office Visit 01/09/2014 2:32p [facility] Meagan Macias M.D. 75091 786.50 Color Maker 796.4 Office Visit 01/09/2014 7:46p [facility] Kenn Del Angel 83328 410.71 Hospitalists Virginie Higgins 401.1 Office Visit 01/08/2014 7:46p [facility] Kimberly, 17547 410.71 Assoc, Hospitalromeo Rachel 401.1 Office Visit 08/08/2013 3:40p [facility] Internal Medicine Aaron Gibbons 92139 599.0 - Gagan Rachel Office Visit 05/15/2013 11:15a [facility] Storm Davison 37368 715.95 Of Earline Dorsey Office Visit 02/21/2013 10:30a [facility] Internal Medicine Anastasiya Dhillon M.D. 55796 599.0 - Gagan 627.3 Office Visit 02/11/2013 1:20p [facility] Internal Medicine Aaron Gibbons 67386 401.1 - Gagan Rachel 272.0 Office Visit 10/23/2012 3:00p [facility] Internal Medicine Lisa Hernandez N.P. 37786 599.0 - Gagan 401.1 Office Visit 08/13/2012 1:00p [facility] Internal Medicine Aaron Gibbons 79895 401.1 - Gagan Rachel V76.19 733.90 272.0 Office Visit 05/17/2012 10:15a [facility] Maicol Carrasco 44000 715.95 Dante Rachel Office Visit 03/07/2012 9:30a [facility] Internal Medicine Alyce 23688 599.0 - Gagan Garcia N.P. 627.3 Office Visit 08/17/2011 2:00p DO Not Use Color Maker AT Nurse [facility] 28559 599.0 [facility] Office Visit 04/26/2011 1:00p DO Not Use Color Maker AT Lisajuli MendozaDavid, 81217 V72.84 Michael N.Lisa 401.1 715.95 272.0 Office Visit 02/16/2011 2:00p [facility] Connor Ojeda M.D. 33621 715.95 [facility] Office Visit 11/12/2010 10:20a DO Not Use Color Maker AT Aaron Gibbons, 15993 401.1 Michael Rachel 715.95 272.0 V04.81 Office Visit 07/27/2010 1:00p DO Not Use Color Maker AT AaronHudson, 36029 723.1 Michael Goddard.Gita 300.09 401.1 Office Visit 07/23/2010 9:45a [facility] True [place], 24221 847.0 Color Maker M.D. Office Visit 07/14/2010 1:45p [facility] [place], 99890 723.4 Color Maker M.DSanam 721.0 847.0 Office Visit 07/12/2010 2:30p [facility] SEA [place] 03944 847.0 [facility] 723.1 Office Visit 06/23/2010 10:00a [facility] [place] 83071 719.41 Of [facility] 723.1 Office Visit 06/18/2010 11:40a DO Not Use Color Maker AT Aaron Gibbons, 97163 726.19 Michael Goddard.Gita Office Visit 06/07/2010 9:30a [facility] Connor Ojeda M.D. 34900 715.95 [facility] Office Visit 05/12/2010 10:00a DO Not Use Color Maker AT AaronHudson, 75935 715.00 Michael Rachel 401.1 272.0 Office Visit 10/21/2009 1:30p DO Not Use Color Maker AT AaronHudson, 57981 401.1 Michael Goddard.Gita 715.00 388.70 Office Visit 09/10/2009 2:15p DO Not Use Color Maker AT AaronHudson, 53540 388.70 Michael Rachel Office Visit 04/20/2009 10:30a [facility] 48839 401.1 [facility]2009 11:00a [facility], 34837 401.1 [facility]. Office Visit 12/31/2007 11:00a [facility], 50387 715.00 [facility] 272.0 401.1 Office Visit 07/02/2007 11:00a [facility], 30778 272.0 [facility] 715.00 401.1 Plan of Care Future Appointment(s):05/15/2018 1:00 pm - Traveling ECHO 1 at [facility]05/18/2018 10:15 am - Elton Horvath DO FACC at [facility]06/04/2018 8:45 am - ALEJO Watt at [facility]05/24/2018 1:00 pm - Kyle Jung PA-C at [facility]05/24/2018 1:00 pm - ALEJO Watt at [facility]05/24/2018 1:00 pm - Glenna Peguero M.D. at [facility]09/03/2018 2:20 pm - Aaron Gibbons M.D. at [facility] Internal Medicine - Subk[place]ou85/02/2018 - Dev Smith M.D.Z01.818 Encounter for other preprocedural zhqbsegjvzjF66.551 Pain in right hipI25.10 [facility]scl heart disease of [place] coronary artery w/o ang pctrsNew Orders:Lexiscan Nuclear MyoviewFollow up:ov 2 qehoeJ05.00 Pure hypercholesterolemia, vzhjagmxpfqN29 Essential (primary) owsqabvrushlL18.5 Ischemic cardiomyopathyNew Orders: Echocardiogram
--- OUTSIDE RECORDS SUMMARY | 2018-05-24 10:38 | XMS REPORT ---
:1930 External Reference #:[id number] Author Organization [facility] Address [address] [place] [address] [place] [address] Phone [phone] Care Team Providers Name Role Phone Aaron Gibbons III, MD Primary Care Physician Unavailable Payers Type Date Identification Numbers Payment Provider Subscriber Medicare Primary Effective: Policy Number: Medicare Alpa Kearney 1995 [id number] PayID: [id number] [address] [place] [address] Medigap Part B Policy Number: [id number] For Life Robertjuli Kearney PayID: [id number] [address] [place] [address] Advance Directives Type Date Description Status Comment Other Directive 02/03/2014 Health Care Proxy Current and Verified Problems Date Description Provider Status Onset: 03/07/2012 Urinary tract infectious disease Alyce Garcia, Active N.P. Onset: 03/07/2012 Atrophic vaginitis Alyce Garcia, Active N.P. Onset: 08/13/2012 Benign essential hypertension Aaron Gibbons M.D. Active Onset: 08/13/2012 Osteochondropathy Aaron Gibbons M.D. Active Onset: 08/13/2012 Pure hypercholesterolemia aAron Gibbons M.D. Active Onset: 01/16/2014 Coronary arteriosclerosis Sebastián Barker M.D., [facility], Active [facility] Onset: 01/16/2014 Mixed hyperlipidemia Sebastián Barker M.D., [facility], Active [facility] Onset: 03/04/2014 Chronic ischemic heart disease Sebastián Barker M.D., [facility], Active [facility] Onset: 04/30/2018 Localized, primary osteoarthritis of Glenna Peguero M.D. Active the pelvic region and thigh Onset: 08/24/2015 Disorder of bone Aaron Gibbons M.D. Active Onset: 08/24/2015 Essential hypertension Aaron Gibbons M.D. Active Family History Date Family Member(s) Problem(s) Comments General Heart Disease General Diabetes Social History Type Date Description Comments Marital Status Lives With at [place] Occupation Retired Cigarette Use Never Smoked Cigarettes ETOH Use Denies alcohol use Smoking Patient has never smoked Exercise Type/Frequency active around the house Allergies, Adverse Reactions, Alerts Date Description Reaction Status Severity Comments 07/02/2007 NKDA active Medications Medication Date Status Form Strength Qnty SIG Indications Ordering Provider Atorvastatin 04/20 Active Tablets 20mg 90tab take 1 Aaron E. Calcium s tablet at [place], bedtime M.D. Lisinopril 11/28 Active Tablets 5mg 180ta 1 by mouth bs twice a day Virginie Barker, [facility], [facility] Aspirin Ec Active Tablets 81mg 90tab 1 tablet Unknown Lo-Dose /0000 DR s daily. Glucosamine Active Capsules 1 cap po Unknown Chondroitin /0000 daily Complex Metoprolol Active Tablets 100mg 180ta 1 by mouth Sebastián Succinate ER /0000 ER 24HR bs twice a day Virginie Barker, [facility], [facility] Amlodipine Active Tablets 2.5mg 90tab 1 by mouth Sebastián Besylate /0000 s every day Virginie Barker, [facility], [facility] Amoxicillin Active Capsules 500mg 12cap 4 tablets [...] Tablets 70mg 12tab take 1 M85.831 Aaron E. Sodium s tablet by Edwige, - mouth every M.DSanam /2017 Keflex 10/06 Hx Capsules 500mg 10cap take 1 tab R23.8 Aaron E. s by mouth q12 Edwige, - hours for 5 M.D. Probiotic Complex 10/06 Hx Capsules 60cap Take 1 R23.8 Catarino Acidophilus s capsule [place], - daily for 60 M.D. Keflex 02/17 Hx Capsules 500mg 20cap 1 by mouth 681.11 Aaron Caldera s twice a day Edwige, - M.D. 04/19 Lisinopril 07/09 Hx Tablets 5mg 90tab 1 by mouth Sebastián s every in the [place], - morning M.D., 11/28 [facility], [facility] Cipro 03/19 Hx Tablets 250mg 14tab one by vlad Caldera s twice daily Edwige, - for 7 days M.D. 05/14 Cipro 02/10 Hx Tablets 250mg 14tab one by vlad Caldera s twice daily Edwige, - for 7 days M.D. 02/17 Lisinopril 01/16 Hx Tablets 10mg 90tab take one s pill by [facility] [place], - mouth every M.D., 11/28 at night [facility], [facility] Zestoretic 04/01 Hx Tablets 10-12.5mg 90tab 1 po qd Aaron Caldera s [place], - M.D. 04/01 Cipro 10/23 Hx Tablets 250mg 10tab take one 599.0 Aaron ESanam s pill twice Edwige, - daily for 5 M.D. Cyclobenzaprine 04/23 Hx Tablets 5mg 15tab 1 po tid prn Dirk HCL s muscle spasm Rusty, - M.D. 08/13 Cipro 03/07 Hx Tablets 250mg 14tab take one 599.0 Alyce s pill twice [place] - daily for 7 [place], 08/13 days N.P. /2011 Premarin 03/07 Hx Cream 0.625mg/G 42.50 administer 627.3 Alyce /2011 M 0gm 0.5 grams [place] - twice weekly [place], 01/15 N.P. Cipro 08/18 Hx Tablets 500mg 14tab 1 po bid Aaron ESanam s Aundrea Gibbons M.D. 03/07 Coumadin 05/11 Hx Tablets 2.5mg 90tab take as s directed at Rusty, - 5pm daily M.DSanam 03/07 Percocet 05/11 Hx Tablets 5-325mg 90tab 1-2 tabs po Dir s q4-6 prn Rusty, - pain M.DSanam 03/07 Cipro 03/02 Hx Tablets 500mg 14tab 1 po bid X7 Aaron Caldera s Aundrea Kim M.D. 04/26 Ibuprofen 11/12 Hx Capsules 200mg prn Aaron E. Aundrea Gibbons M.D. 01/15 Zestoretic 11/12 Hx Tablets 10-12.5mg 90tab 1 po qd Aaron Sanam s Aundrea Gibbons M.D. 01/15 Medrol Dosepak 07/14 Hx Tablets 4mg 1tabs follow Aaron ESanam package Aundrea Gibbons directions Virginie 04/26 take with food Flexeril 07/03 Hx Tablets 10mg 15tab 1 po QHS prn Aaron ESanam Aundrea Reynolds M.D. 04/26 Acetasol HC 10/21 Hx Solution 2-1% 15cc 3-4 drops Aaron ESanam qid Aundrea Gibbons M.D. 06/18 Physical Therapy 10/21 Hx 20uni pt Aaron E. ts evaluation Edwige, - and Virginie 05/12 treatment for bilat hip pain Cortisporin TC 09/10 Hx 10cc 4 drops to Aaron Caldera Lear qid for Edwige, - 7-10 days M.DSanam 10/21 Tamiflu 01/13 Hx Capsules 75mg 10cap 1 PO bid X 5 Aaron E. s Aundrea Kim M.D. 03/20 Tylenol Hx Tablets 325mg 100ta prn Mando, /0000 federico Matthew MD - 04/29 Advil Hx Capsules 200mg 1 PO prn Mando, /0000 MD Vipul - 12/30 Osteo Bi-Flex Hx Tablets 250-200mg 2 by mouth Unknown Regular Strength /0000 every day - 08/20 Centrum Silver Hx Tablets 1 PO qd Mando, /0000 MD Vipul - 07/02 Zestoretic Hx Tablets /.5 90tab 1 po qd Aaron E. /0000 Aundrea Reynolds M.D. 11/12 Aleve Hx Tablets 220mg prn [...] mouth every [place], - day M.D., 04/20 [facility] Nitrostat Hx Tablets 0.4mg 25tab one sl q5min Unknown /0000 Sub s up to 3 - doses as 02/25 Brilinta Hx Tablets 90mg 180ta 1 tab by Sebastián /0000 bs mouth twice [place], - a day M.D., 12/30 [facility] Lisinopril Hx Tablets 10mg 90tab 1 by mouth Unknown /0000 s every day - 01/16 Premarin Hx Cream 0.625mg/G 42.50 1/2 Unknown /0000 M 0gm application - by [...] CPT Code Status Date Vaccine Lot # [id number] Given 08/28/2017 Influenza Virus Vaccine, Quadrivalent, Split, [id number] Preservative Free 75055 Given 08/25/2016 Influenza Virus Vaccine, Quadrivalent, Split [id number] Virus, [place] Use [address] Given 08/24/2015 Influenza Virus Vaccine, Quadrivalent, Split, [id number] Preservative Free 72809 Given 02/17/2015 Tdap - Tetanus/Diptheria/Acellular Pertussis [id number] 39489 Given 02/17/2015 Pneumococcal Conjugate Vaccine 13 Valent For [id number] Intramuscular Use 46115 Given 08/20/2014 Flu Vaccine Split Virus Preservative Free For [id number] Indiv 3Yr Older 45471 Given 08/14/2013 Flu Vaccine Split Virus Preservative Free For [id number] Indiv 3Yr Older 07628 Given 09/19/2012 Zoster (Zostavax) [id number] Q2038 Given 07/11/2012 Fluzone Vaccine [id number] Q2038 Given 11/12/2010 Fluzone Vaccine [id number] 23120 Given 07/28/2008 Influenza Virus 3Yrs & Over 40462 Given 07/23/2007 Influenza Virus 3Yrs & Over 01943 Given 07/23/2007 Influenza Virus 3Yrs & Over 87062 Given 07/23/2007 Influenza Virus 3Yrs & Over 03928 70948 Given 05/04/2004 Td (History By Patient) [id number] 17375 Given 03/25/1999 Pneumovax (History By Patient) Vital Signs Date Vital Result Comment 05/09/2018 Height 63.5 inches 5'3.50" Weight 146.00 [...] Test Date Test Result H/L Range Note Comp Metabolic Panel 08/24/2017 Sodium 139 mmol/L [...] Egfr Non- 70.0 >60 Egfr 90.1 >60 1 Lipid Profile (Trig/Chol/HDL) 08/24/2017 Triglycerides 74 mg/dL 2 Cholesterol 142 mg/dL 3 HDL Cholesterol 56.3 mg/dL 4 LDL Cholesterol 71 mg/dL 5 Laboratory test finding 08/24/2017 Vitamin D Total [...] Egfr Non- 69.2 >60 Egfr 89.0 >60 6 Laboratory test finding 02/20/2017 Vitamin D Total 25(Oh) 23.2 ng/mL Low 30-50 7 Laboratory test finding 04/19/2016 Alt (SGPT) 17 U/L 7-52 Ast (Sgot) 24 U/L 13-39 Lipid Profile (Trig/Chol/HDL) 04/19/2016 Triglycerides 75 mg/dL 8 Cholesterol 131 mg/dL 9 HDL Cholesterol 50.3 mg/dL 10 LDL Cholesterol 66 mg/dL 11 Stool For Blood 11/05/2015 Miscellaneous Lab negative x 3 Urinalysis Profile 11/02/2015 Urine Color Yellow Urine Appearance Cloudy Urine Specific [place] 1.012 1.010-1.030 Urine pH 5.0 5-9 Urine Urobilinogen Negative Negative Urine Ketones Negative Negative Urine Protein Negative Negative Urine Leukocytes Trace Negative Urine Blood Negative Negative * * Negative 12 Urine Nitrite Negative Negative Urine Bilirubin Negative [...] Egfr Non- 58.9 >60 Egfr 75.7 >60 13 Total Protein 6.7 g/dL 6.4-8.9 Globulin 2.2 g/dL 2-4 Albumin/Globulin Ratio 2.0 1-3 Alkaline Phosphatase 92 U/L 34-104 Laboratory test finding 11/02/2015 Erythrocyte Sed Rate 16 mm/Hr 0-40 C Reactive Protein < 1.00 mg/L < 5.00 14 Urine Culture And Sensitivities SEE RESULT BELOW 15 Basic Metabolic Panel 09/09/2015 Sodium 139 mmol/L 133-145 Potassium 4.2 mmol/L 3.5-5.0 Chloride 104 mmol/L 101-111 Co2 Carbon Dioxide 30 mmol/L 22-32 Anion Gap 5 mmol/L 2-11 Glucose 86 mg/dL 70-100 Blood Urea Nitrogen 15 mg/dL 6-24 Creatinine 0.81 mg/dL 0.51-0.95 BUN/Creatinine Ratio 18.5 8-20 Calcium 9.9 mg/dL 8.6-10.3 Egfr Non- 67.4 >60 Egfr 86.6 >60 16 Lipid Profile (Trig/Chol/HDL) 04/15/2015 Triglycerides 74 mg/dL 17, 18 Cholesterol 127 mg/dL 17, 19 HDL Cholesterol 53.2 mg/dL 17, 20 LDL Cholesterol 59 mg/dL 17, 21 Laboratory test finding 04/15/2015 Alt (SGPT) 17 U/L 7-52 17, 22 Ast (Sgot) 24 U/L 13-39 17, 23 CBC Auto Diff 12/12/2014 White Blood Count [...] 0-2 Nucleated Red Blood Cells % 0 Lipid Profile (Trig/Chol/HDL) 04/18/2014 Triglycerides 74 mg/dL 17, 24 Cholesterol 130 mg/dL 17, 25 HDL Cholesterol 57.8 mg/dL 17, 26 LDL Cholesterol 57 mg/dL 17, 27 Laboratory test finding 04/18/2014 Alt 24 U/L 7-52 17, 28 Ast 25 U/L 13-39 17, 29 Urine Culture And Sensitivities 03/18/2014 Urine Culture (SEE NOTE) 30 Urinalysis Profile 03/18/2014 Urine Color Ayesha Urine Appearance Turbid Urine Specific [place] 1.029 1.010-1.030 Urine pH 5.0 5-9 Urine Urobilinogen Negative Negative Urine Ketones Negative Negative Urine Protein 2+(100 mg/dL) Negative Urine Leukocytes 3+ Negative Urine Blood Negative Negative * * Negative 31 Urine Nitrite Negative Negative Urine Bilirubin Negative Negative Urine Glucose Negative Negative Urine White Blood Cell 3+(>10/hpf) Absent Urine Red Blood Cell 1+(<3/hpf) Absent Urine Bacteria 1+ Absent CBC Auto Diff 01/11/2014 White Blood Count [...] Time B Type Natriuretic Peptide 168 pg/mL 32 Comp Metabolic Panel 01/11/2014 Sodium 137 mmol/L [...] Egfr Non- 68.7 >60 Egfr 88.3 >60 33 Laboratory test finding 01/11/2014 Magnesium 2.1 mg/dL 1.9-2.7 Creatine Kinase 91 U/L 10-223 CKMB 01/11/2014 CKMB ng/mL 4.3 ng/mL 0.6-6.3 Laboratory test finding 01/11/2014 Troponin I 0.67 ng/mL <0.03 34 Myoglobin 61.9 ng/mL 14.3-65.8 CBC Auto Diff [...] Egfr Non- 69.7 >60 Egfr 89.6 >60 35 Laboratory test finding 01/08/2014 Troponin I 0.66 ng/mL <0.03 36 Urine Culture And Sensitivities 08/14/2013 Urine Culture (SEE NOTE) 37 Urinalysis W/Microscopic 08/14/2013 Urine Color Yellow Urine Appearance Clear Urine Specific [place] 1.012 1.010-1.030 Urine Esterase Trace Negative Urine [...] None Seen Ua Routine 08/08/2013 Ua Specific [place] 1.015 Ua PH 5 Ua Color yellow Ua Appera cloudy Ua WBC positive Ua Protein neg Ua Glucose neg Ua Ketones trace Ua Bilirubin neg Ua Urobilinogen neg Ua Nitrite positive Ua Occult Blood neg Lipid Profile (Trig/Chol/HDL) 08/06/2013 Triglycerides 77 mg/dL 40-200 Cholesterol 199 mg/dL Less than 200 HDL Cholesterol 64 mg/dL High 40-60 38 Cholesterol/HDL Ratio 3.1 Average 1-4.44 LDL Cholesterol 119.6 High Less Than 100 39 CBC Auto Diff 08/06/2013 White Blood Count [...] Egfr Non- 80.3 >60 Egfr 103.3 >60 40 Ua Routine 02/21/2013 Ua Specific [place] 1.005 Ua PH 7.0 Ua Color yellow Ua Appera cloudy Ua WBC moderate Ua Protein +30 Ua Glucose neg Ua Ketones neg Ua Bilirubin small Ua Urobilinogen neg Ua Nitrite positive Ua Occult Blood non hem trace Urine Culture And Sensitivities 02/21/2013 Urine Culture (SEE NOTE) 41 Urine Culture And Sensitivities 10/23/2012 Urine Culture (SEE NOTE) 42 Ua Routine 10/23/2012 Ua Specific [place] 1.005 Ua PH 5 Ua Color yellow [...] 1-3 Total Bilirubin 1.2 mg/dL High 0.1-1.0 43 Alkaline Phosphatase 74 U/L 30-110 Alt 14 U/L 14-54 Ast 22 U/L 12-42 Egfr Non- 80.5 >60 Egfr 103.5 >60 44 Laboratory test finding 07/31/2012 TSH (Thyroid Stimulating 3.28 MIU/ML 0.34-5.60 Horm) Lipid Profile 07/31/2012 Triglycerides 62 mg/dL 40-200 (Trig/Chol/HDL) Cholesterol 216 mg/dL High Less than 200 45 HDL Cholesterol 59 mg/dL 40-60 46 Cholesterol/HDL Ratio 3.7 AVERAGE 1-4.44 LDL Cholesterol 144.6 mg/dL High Less Than 100 Urine Culture & 03/07/2012 M <SEE NOTE> 47 Sensitivi Urinalysis W/Microscopic 08/17/2011 Ua Color ORANGE Yellow Appearance-Urine CLEAR Clear Specific [place]-Ur 1.009 Low 1.010-1.030 Esterase-Urine 3+ Negative Nitrite POSITIVE Negative [id number] NEGATIVE Negative Protein-Urine NEGATIVE Negative PH-Urine 6.0 5-9 Blood-Urine TRACE Negative Ketones-Urine NEGATIVE Negative Bilirubin-Ur NEGATIVE Negative Glucose-Urine NEGATIVE Negative WBC-Urine TNTC 0-5 RBC-Urine 0-2 0-2 Epith Cells-Ur SMALL None Bacteria-Urine 4+ None Urine Culture & Sensitivi 08/17/2011 Urine Culture ESCHERICHIA COLI 48 Sensitivi Sensitivities For Urine 08/17/2011 Ampicillin <=2 Culture Amikacin <=2 Ciprofloxacin <=0.25 Ceftriaxone <=1 Cefazolin <=4 Nitrofurantoin <=16 Gentamicin <=1 Imipenem <=1 Levofloxacin <=0.12 Trimeth-Sulfa <=20 Ceftazidime <=1 Tigecycline <=0.5 CBC With Manual Diff 04/26/2011 White Blood [...] mmol/L 22-32 Anion Gap 7.0 mmol/L 2-11 49 Glucose 88 mg/dL 70-100 BUN 12 mg/dL 6-24 Creatinine 0.80 mg/dL 0.50-1.40 One Over Creatinine 1.20 BUN/Creatinine Ratio 15.0 8-20 Calcium 9.8 mg/dL 8.1-9.9 Total Protein 6.4 GM/DL 6.2-8.1 Albumin 4.3 GM/DL 3.2-5.2 Globulin 2.1 GM/DL 2-4 Albumin/Globulin Ratio 2.0 1-3 Bilirubin Total 0.7 mg/dL 0.4-1.5 50 Alkaline Phosphatase 71 U/L 30-110 Alt (SGPT) 15 U/L 14-54 Ast (Sgot) 23 U/L 12-42 eGFR Non- 69.2 > 60 eGFR 89.0 > 60 51 Sensitivities For Urine Culture 03/02/2011 Ampicillin >=32 Amikacin <=2 Ciprofloxacin <=0.25 Ceftriaxone <=1 Cefazolin <=4 Nitrofurantoin 64 Gentamicin <=1 Imipenem <=1 Levofloxacin <=0.12 Trimeth-Sulfa <=20 Ceftazidime <=1 Tigecycline <=0.5 Piperacillin/Tazobactam <=4 Urinalysis W/Microscopic 03/02/2011 Ua Color ORANGE Yellow Appearance-Urine CLOUDY Clear Specific [place]-Ur 1.016 1.010-1.030 Esterase-Urine 3+ Negative Nitrite POSITIVE Negative [id number] NEGATIVE Negative Protein-Urine NEGATIVE Negative PH-Urine 6.5 5-9 Blood-Urine 1+ Negative Ketones-Urine NEGATIVE Negative Bilirubin-Ur NEGATIVE Negative Glucose-Urine NEGATIVE Negative WBC-Urine TNTC 0-5 RBC-Urine 1-5 0-2 Epith Cells-Ur MODERATE None Bacteria-Urine 4+ None Urine Culture & Sensitivi 03/02/2011 Urine Culture KLEBSIELLA PNEUM <SEE 52 Sensitivi NOTE> Sensitivities For Urine 10/16/2010 Ampicillin 4 Culture Amikacin <=2 Ciprofloxacin <=0.25 Ceftriaxone <=1 Cefazolin <=4 Nitrofurantoin <=16 Gentamicin <=1 Imipenem <=1 Levofloxacin <=0.12 Trimeth-Sulfa <=20 Ceftazidime <=1 Tigecycline <=0.5 Piperacillin/Tazobactam KB 28 Urine Culture & 10/16/2010 Urine Culture ESCHERICHIA COLI 53 Sensitivi Sensitivi Comp Metabolic Panel 05/14/2010 Sodium 137 mmol/L 135-145 Potassium 4.1 mmol/L 3.5-5.0 Chloride 100 mmol/L Low 101-111 Co2 (Carbon Dioxide) 29.0 mmol/L 22-32 Anion Gap 8.0 mmol/L 2-11 54 Glucose 79 mg/dL 70-100 55 BUN 10 mg/dL 6-24 Creatinine 0.80 mg/dL 0.50-1.40 One Over Creatinine 1.20 BUN/Creatinine Ratio 12.5 8-20 Calcium 9.4 mg/dL 8.1-9.9 56 Total Protein 6.6 GM/DL 6.2-8.1 Albumin 4.3 GM/DL 3.2-5.2 Globulin 2.3 GM/DL 2-4 Albumin/Globulin Ratio 1.9 1-3 Bilirubin Total 0.9 mg/dL 0.4-1.5 57 Alkaline Phosphatase 78 U/L 30-110 Alt (SGPT) 16 U/L 14-54 Ast (Sgot) 23 U/L 12-42 eGFR Non- 73.7 > 60 eGFR 89.2 > 60 58 Lipid Profile (Trig/Chol/HDL) 05/14/2010 Triglyceride 133 mg/dL 40-200 Cholesterol 229 mg/dL High Less Than 200 59 High Density Lipoprotein 53 mg/dL 40-60 60 Cholesterol/HDL Ratio 4.32 AVERAGE 1-4.44 Low Density Lipoprotein 149 mg/dL High Less Than 100 61 CBC With Electronic Diff 05/14/2010 White Blood [...] Eosinophils 0.1 0-0.6 Abs Basophils 0 0-0.2 DR Gibbons's Lab Panel 05/14/2010 TSH 1.65 MIU/ML 0.34-5.60 Basic Metabolic Panel 03/20/2009 Sodium 137 mmol/L 135-145 Potassium 4.4 mmol/L 3.5-5.0 Chloride 103 mmol/L 101-111 Co2 (Carbon Dioxide) 31.0 mmol/L 22-32 Anion Gap 3.0 mmol/L 2-11 62 Glucose 87 mg/dL 70-100 63 BUN 16 mg/dL 6-24 Creatinine 0.70 mg/dL 0.50-1.40 One Over Creatinine 1.40 BUN/Creatinine Ratio 22.9 High 8-20 Calcium 9.8 mg/dL 8.1-9.9 64 CBC With Electronic Diff 02/04/2008 White Blood Count 5.4 CUMM 4.8-10.8 65 Abs Basophils 0 0-0.2 65 Abs Eosinophils 0.2 0-0.6 65 Absolute Neutrophil Count 3.3 1.5-7.7 65 Abs Lymphs 1.4 1.0-4.8 65 Abs Mononuclear 0.4 0-0.8 65 Basophil % 0.6 % 0-2 65 Hematocrit 42 % 35-47 65 Hemoglobin 14.1 g/dL 12.0-16.0 65 Eosinophil % 4.5 % 0-6 65 Gran % 61.0 % 38-83 65 Lymph % 26.3 % 20-45 65 Mean Corpuscular HGB Cone 34 g/dL 32-36 65 Mean Corpuscular Hemoglob 30 pg 27-31 65 Mean Corpuscular Volume 89 um3 79-97 65 Mean Platelet Volume 7.8 um3 7.4-10.4 65 Mononuclear % 7.6 % 1-9 65 Platelet Count 370 CUMM 150-450 65 Red Cell Count 4.70 CUMM 4.2-5.4 65 Redcell Distribution WDTH 13 % 10.5-15 65 Comp Metabolic Panel 02/04/2008 One Over Creatinine 1.11 65 Anion Gap 2.0 mmol/L 2-11 65, 66 Albumin/Globulin Ratio 1.4 1-3 65 Albumin 3.9 GM/DL 3.2-5.2 65 Alkaline Phosphatase 77 U/L 30-110 65 Alt (SGPT) 25 U/L 14-54 65 Ast (Sgot) 29 U/L 12-42 65 BUN 13 mg/dL 6-24 65 Calcium 9.3 mg/dL 8.7-10.2 65 Chloride 106 mmol/L 101-111 65 Co2 (Carbon Dioxide) 30.0 mmol/L 22-32 65 Globulin 2.8 GM/DL 2-4 65 Glucose 94 mg/dL 70-105 65 Potassium 3.9 mmol/L 3.5-5.0 65 Sodium 138 mmol/L 135-145 65 Bilirubin Total 1.0 mg/dL 0.4-1.5 65 Total Protein 6.7 GM/DL 6.2-8.1 65 BUN/Creatinine Ratio 14.4 8-20 65 Creatinine 0.9 mg/dL 0.5-1.4 65 Laboratory test finding 02/04/2008 TSH 1.39 MIU/ML 0.34-5.60 65 Lipid Profile 02/04/2008 Cholesterol/HDL 3.98 AVERAGE 1-4.44 65 (Trig/Chol/HDL) Ratio Cholesterol 195 mg/dL Less Than 200 65, 67 Triglyceride 76 mg/dL 40-200 65 High Density Lipoprotein 49 mg/dL 40-60 65, 68 Low Density Lipoprotein 131 mg/dL High Less Than 100 65, 69 1 Because ethnic data is not always [...] 5 Kidney failure <15 (or dialysis) 2 Desirable: <150 Borderline High: 150-199 High: 200-499 Very High: >500 3 Desirable: <200 Borderline High: 200-239 High: >239 4 Low: <40 Desirable: 40-60 High: >60 5 Desirable: <100 Near Optimal: 100-129 Borderline High: 130-159 High: 160-189 Very High: >189 6 Because ethnic data is not always readily [...] 15-29 5 Kidney failure <15 (or dialysis) 7 FASTING 8 Desirable <150 Borderline high 150-199 High 200-499 Very High >500 9 Desirable <200 Borderline high 200-239 High >239 10 Low <40 Desirable: 40-60 High: >60 11 Desirable: <100 mg/dL Near Optimal: 100-129 mg/dL Borderline High: 130-159 mg/dL High: 160-189 mg/dL Very High: >189 mg/dL 12 *Ascorbic acid is present which may interfere with detection of blood. 13 Because ethnic data is not always readily [...] 15-29 5 Kidney failure <15 (or dialysis) 14 Acute inflammation: >10.00 15 SEE RESULT BELOW Name: JORGEELVINELOINAALPA [place] : [address]: Aaron Gibbons III, MD Acct: [id number] Unit: [id number] AGE: 85 Location: [facility] Re11/02/15 SEX: F Status: REG REF SPEC: [id number] MICHAELA: 11/02/[address]: Aaron Gibbons III, MD REQ: [id number] RECD: 11/02/15 STATUS: COMP _ SOURCE: URINE SPDESC: ORDERED: Urine Culture Procedure Result Reported Site Urine Culture Final 11/03/15- 6368 ML No growth of clinically significant organisms * ML - MAIN LAB ([facility]) . END OF REPORT * ML=Testing performed at Main Lab DEPARTMENT OF PATHOLOGY, [address] [place] [address] Gabriele Ravi M.D. Director [facility] # [id number] 16 Because ethnic data is not always readily [...] 15-29 5 Kidney failure <15 (or dialysis) 17 FASTING 18 Desirable <150 Borderline high 150-199 High 200-499 Very High >500 19 Desirable <200 Borderline high 200-239 High >239 20 Low <40 Desirable: 40-60 High: >60 21 Desirable: <100 mg/dL Near Optimal: 100-129 mg/dL Borderline High: 130-159 mg/dL High: 160-189 mg/dL Very High: >189 mg/dL 22 FASTING 23 FASTING 24 Desirable <150 Borderline high 150-199 High 200-499 Very High >500 25 Desirable <200 Borderline high 200-239 High >239 26 Low <40 Desirable: 40-60 High: >60 27 Desirable <100 Near Optimal 100-129 Borderline high 130-159 High 160-189 Very High >189 28 FASTING 29 FASTING 30 RUN DATE: 03/20/14 [facility] LAB LIVE PAGE 1 RUN TIME: 100[address] [place], [place] [address] Specimen Inquiry Name: ALPA KEARNEY : [address]: Aaron Gibbons III, MD Acct: [id number] Unit: [id number] AGE: 83 Location: [facility] Re03/18/14 SEX: F Status: REG REF SPEC: [id number] MICHAELA: 03/18/14-[address] [facility] [address]: Aaron Gibbons III, MD REQ: [id number] RECD: 03/18/14-1609 STATUS: COMP _ SOURCE: URINE SPDESC: ORDERED: Urine Culture QUERIES: Medent Number [id number] Urine Source: Random Procedure Result Verified Site Urine Culture Final 03/20/14- 1003 ML Organism 1 ENTEROBACTER CLOACAE COMPLEX [place] Count >100,000 (Many) CFU/ML 1. ENTEROBACTER CLOACAE [...] performed at Main Lab DEPARTMENT OF PATHOLOGY, [address] [place] [address] Gabriele Ravi M.D. Director [facility] # [id number] 31 *Ascorbic acid is present which may interfere with detection of blood. 32 >100 to <200 pg/mL: likely compensated congestive heart failure (CHF) 200 to 400 pg/mL: likely moderate CHF >400 pg/mL: likely moderate to severe CHF [place] [facility] 33 Because ethnic data is not always readily [...] 15-29 5 Kidney failure <15 (or dialysis) 34 Result TnIDx:0.67 Called to [id number] at: 12:59:35 by:[id number] Read back by: [id number] Reference Range and Interpretation: TnI (ng/mL) Interpretation Less Than 0.03 ng/mL Not supportive of diagnosis of ME 0.03 - 0.50 ng/mL Indeterminate: suggest serial studies if clinically indicated. Greater than 0.5 ng/mL Consistent with diagnosis of ME 35 Because ethnic data is not always readily [...] 15-29 5 Kidney failure <15 (or dialysis) 36 Result TnIDx:0.66 Called to [id number] at: 19:50:58 by:[id number] Read back by: [id number] Reference Range and Interpretation: TnI (ng/mL) Interpretation Less Than 0.03 ng/mL Not supportive of diagnosis of ME 0.03 - 0.50 ng/mL Indeterminate: suggest serial studies if clinically indicated. Greater than 0.5 ng/mL Consistent with diagnosis of ME 37 RUN DATE: 08/16/13 [facility] LAB LIVE PAGE 1 RUN TIME: [address] [place] [address] Specimen Inquiry Name: ALPA KEARNEY : [address]: Aaron Gibbons III, MD Acct: [id number] Unit: [id number] AGE: 82 Location: [facility] Re08/14/13 SEX: F Status: REG REF SPEC: [id number] MICHAELA: 08/14/[address] [facility] [address]: Aaron Gibbons III, MD REQ: [id number] RECD: 08/14/13 STATUS: COMP _ SOURCE: URINE SPDESC: ORDERED: Urine Culture QUERIES: Medent Number [id number] Procedure Result Verified Site Urine Culture Final 08/16/13- 1130 ML Organism 1 NORMAL ARABELLA [place] Count 10-25,000 (Moderate) CFU/ML END OF REPORT * ML=Testing performed at Main Lab DEPARTMENT OF PATHOLOGY, [facility] [place], [place] [address] Gabriele Ravi M.D. Director [facility] Permit #[id number] HDL Interpretation: Undesirable: High Risk: Less than 40 mg/dL Desirable: Low Risk: Greater than 60 mg/dL 39 LDL Interpretation: Low Risk Optimal Level: LDL Less than 100 mg/dL Near or Above Optimal: LDL 100-129 mg/dL Borderline High Risk: LDL 130-159 mg/dL High Risk: LDL 160-189 mg/dL Very High Risk: LDL Greater than 189 mg/dL 40 Because ethnic data is not always readily [...] 15-29 5 Kidney failure <15 (or dialysis) 41 RUN DATE: 02/23/13 [facility] LAB LIVE PAGE 1 RUN TIME: 9[address] [employer] [place], [place] [address] Specimen Inquiry Name: ALPA KEARNEY : [address]: Anastasiya Dhillon MD Acct: [id number] Unit: [id number] AGE: 82 Location: [facility] Re02/21/13 SEX: F Status: REG REF SPEC: [id number] MICHAELA: 02/21/13-[address] [facility] [address]: Anastasiya Dhillon MD REQ: [id number] RECD: 02/21/13 STATUS: COMP _ SOURCE: URINE SPDESC: ORDERED: Urine Culture QUERIES: Medent Number [id number] Procedure Result Verified Site Urine Culture Final 02/23/13- 0910 ML Organism 1 ESCHERICHIA COLI [place] Count >100,000 (Many) CFU/ML 1. ESCHERICHIA COLI [...] performed at Main Lab DEPARTMENT OF PATHOLOGY, [facility] [employer] [place], [place] [address] Gabriele Ravi M.D. Director [facility] Permit #[id number] RUN DATE: 10/25/12 [facility] LAB LIVE PAGE 1 RUN TIME: 1112 [facility] [employer] [place], [place] [address] Specimen Inquiry Name: ALPA KEARNEY : [address]: Lisa Hernandez NP Acct: [id number] Unit: [id number] AGE: 82 Location: [facility] Re10/23/12 SEX: F Status: REG REF SPEC: [id number] MICHAELA: 10/23/12-[address] [facility] [address]: Lisa Hernandez NP REQ: [id number] RECD: 10/23/12 STATUS: COMP _ SOURCE: URINE SPDESC: ORDERED: Urine Culture QUERIES: Medent Number [id number] Procedure Result Verified Site Urine Culture Final 10/25/12- 1111 ML Organism 1 NORMAL ARABELLA [place] Count 75-100,000 (Many) CFU/ML END OF REPORT * ML=Testing performed at Main Lab DEPARTMENT OF PATHOLOGY, [address] [place] [address] Gabriele Ravi M.D. Director [facility] Permit #[id number] 43 A metabolite of Naproxen, O-desmethylnaproxen, has been shown to interfere with the Jendrassik-[place] method for measuring total bilirubin. Samples from patients who have taken Naproxen have shown spurious elevation in total bilirubin levels. 44 Because ethnic data is not always readily [...] 15-29 5 Kidney failure <15 (or dialysis) 45 Desirable: Less than 200 MG/DL Borderline-High Risk: 200-239 MG/DL High-Risk: 240 MG/DL and over 46 HDL Interpretation: Undesirable: High Risk: Less than 40 MG/DL Desirable: Low Risk: Greater than 60 MG/DL 47 RUN DATE: 03/10/12 [facility] NMI LIVE PAGE 1 RUN TIME: 826 Specimen Inquiry RUN USER: INTERFACE Name: ALPA KEARNEY Status: REG REF Re03/07/12 Age/Sex: 81/F Unit#: [id number] Location: [facility]. : [birth year] SPEC #: [id number] MICHAELA: 03/07/12-1011 STATUS: COMP REQ #: [id number] RECD: 03/07/12-[address] [facility] [address]: Alyce Cadena NP SOURCE: URINE ENTR: 03/07/12-[address]: URINE C S QUERIES: MEDENT REQUISITION # [id number] Procedure Result Verified Site > URINE CULTURE [...] *These antibiotics are not available in the [facility] Formulary. Contact the Microbiology Department for any additional antibiotic reporting. - [facility] Permit #[id number] [address] [place] [address] DEPARTMENT OF PATHOLOGY, [address] [place] [address] [place] Permit #[id number] Gabriele Ravi M.D. Director Sebastián Nava M.D. Otr Driver 48 >100^>100,000 ORGANISMS/ML (MANY)^CCU 49 Anion gap measurement may be of limited value in the presence of any alkalosis, especially in a combined acid base disorder. . 50 A metabolite of Naproxen, O-desmethylnaproxen, has been shown to interfere with the Jendrassik-[place] method for measuring total bilirubin. Samples from patients who have taken Naproxen have shown spurious elevation in total bilirubin levels. 51 Because ethnic data is not always readily [...] 15-29 5 Kidney failure <15 (or dialysis) 52 KLEBSIELLA PNEUMONIAE >100^>100,000 ORGANISMS/ML (MANY)^CCU 53 >100^>100,000 ORGANISMS/ML (MANY)^CCU 54 Anion gap measurement may be of limited value in the presence of any alkalosis, especially in a combined acid base disorder. . 55 Note change in reference range as of 05/29/08. The change was based on recommendations from the [place] [employer]. 56 Please note change in reference range effective 08 . 57 A metabolite of Naproxen, O-desmethylnaproxen, has been shown to interfere with the Jendrassik-Papa method for measuring total bilirubin. Samples from patients who have taken Naproxen have shown spurious elevation in total bilirubin levels. 58 Because ethnic data is not always readily [...] 15-29 5 Kidney failure <15 (or dialysis) 59 CHOLESTEROL INTERPRETATION: Desirable: Less than 200 MG/DL Borderline-High Risk: 200-239 MG/DL High-Risk: 240 MG/DL and over 60 HDL INTERPRETATION: Undesirable: High Risk: Less than 40 MG/DL Desirable: Low Risk: Greater than 60 MG/DL 61 LDL INTERPRETATION: Low Risk Optimal Level: LDL Less than 100 MG/DL Near or Above Optimal: LDL 100-129 MG/DL Borderline High Risk: LDL 130-159 MG/DL High Risk: LDL 160-189 MG/DL Very High Risk: LDL Greater than 189 MG/DL 62 Anion gap measurement may be of limited value in the presence of any alkalosis, especially in a combined acid base disorder. . 63 Note change in reference range as of 05/29/08. The change was based on recommendations from the [place] [employer]. 64 Please note change in reference range effective 08 . 65 PATIENT MAY HAVE RESULTS PER DOCTOR'S AUTHORIZATION. Questions regarding this report should be directed to your doctor. 66 Anion gap measurement may be of limited value in the presence of any alkalosis, especially in a combined acid base disorder. . 67 CHOLESTEROL INTERPRETATION: Desirable: Less than 200 [...] High Risk: LDL Greater than 189 MG/DL Procedures Date CPT Code Description Status 09/21/2017 Mammogram Completed 09/21/2017 Bone Mineral Density Test Completed 08/02/2016 Diabetic Retinal Eye Exam Completed 04/18/2016 48903 EKG Tracing & Interpretation Completed 09/09/2015 Mammogram Completed 09/09/2015 Bone Mineral Density Test Completed 04/20/2015 09749 EKG Tracing & Interpretation Completed 11/28/2014 02039 EKG Tracing & Interpretation Completed 10/06/2014 03092 Xray Knee 3 Views Completed 09/10/2014 09334 Xray Knee 3 Views Completed 09/10/2014 56701 Rad Exam; Knee, Ap&L Completed 09/10/2014 88507 Dislocation patella closed tx w/o anesthesia Completed 09/10/2014 91806 FX Patella Care Completed 02/25/2014 81560 ECHO Transthoracic, Real-Time 2D With Doppler And Color Completed Flow 01/16/2014 26034 EKG Tracing & Interpretation Completed 01/13/2014 17434 EKG, Interpretation Only Completed 01/12/2014 38171 EKG, Interpretation Only Completed 01/11/2014 22427 Cath PLMT&NJX L Ventriculog Img S&I Completed 01/11/2014 30390 EKG, Interpretation Only Completed 01/11/2014 67170 Percutaneous Transcatheter Placement Of Intracoronary Completed Stent 01/10/2014 64075 EKG, Interpretation Only Completed 01/09/2014 86965 Left Heart Cath. Incl S/I Coronaries, Angio S/I V Gram Completed If Done 01/09/2014 96823 EKG, Interpretation Only Completed 01/09/2014 91555 Revascularization Acute Total/Subtotal Occlusion Completed 01/09/2014 73381 Revascularization Acute Total/Subtotal Occlusion Completed 08/21/2013 Mammogram Completed 07/24/2012 Bone Mineral Density Test Completed 07/24/2012 Mammogram Completed 05/17/2012 77720 Rad Exam; Pelvis Completed 05/17/2012 94409 Rad Exam; Hip Unilat Completed 06/27/2011 31296 Rad Exam; Pelvis Completed 06/27/2011 19939 Rad Exam; Hip Unilat Completed 05/17/2011 16976 THR Total Hip Replacement Completed 05/17/2011 52948 THR Total Hip Replacement Completed 04/26/2011 90812 EKG Tracing & Interpretation Completed 02/16/2011 83152 Rad Exam; Hip Unilat Completed 02/16/2011 87962 Rad Exam; Pelvis Completed 11/29/2010 Mammogram Completed 02/11/2009 Colonoscopy Completed Encounters Type Date Location Provider CPT E/M Dx Office Visit 04/30/2018 [facility] Glenna Peguero M.D. 11201 M25.551 9:30a Of [facility]dy[facility].ASanam M16.11 Office Visit 04/18/2018 2:00p [facility] Aaron Gibbons, 32450 M25.551 - Angel Rachel Office Visit 02/26/2018 2:20p [facility] Aaron Gibbons, 10502 I10 - Angel Rachel I25.10 E78.2 M85.9 L98.9 Office Visit 10/16/2017 1:00p [facility] Aaron Gibbons, 78311 M85.831 Medicine - Angel Rachel Office Visit 10/06/2017 12:06p [facility] Susi Bee, LUZMARIA 73543 R23.8 R23.8 Office Visit 10/04/2017 11:46a [facility] Susi Gamboa, LUZMARIA 16626 R23.8 Office Visit 05/04/2017 10:40a [facility] Aaron Gibbons, 13634 Z01.810 Stanford Ortiz M.D. H26.9 I10 I25.10 E78.2 M85.9 Office Visit 02/22/2017 11:20a [facility] - Aaron Gibbons, 07836 I10 Angel Rachel E78.2 I25.10 M85.9 Office Visit 04/18/2016 2:40p [facility] Sebastián Barker M.D., 85393 I10 AT [facility], [facility] E78.2 I25.10 Office Visit 02/22/2016 10:40a [facility] - Aaron Gibbons, 80731 I10 Gagan Rachel E78.2 I25.10 Office Visit 12/31/2015 11:20a [facility] Aaron Gibbons, 89573 M79.652 - Gagan Rachel Office Visit 10/28/2015 4:00p [facility] Aaron Gibbons, 28291 R10.813 - Gagan Rachel Office Visit 04/20/2015 11:20a [facility] Sebastián Barker M.D., 92923 401.1 [facility] AT [facility], FSCAI 414.9 272.2 Office Visit 02/17/2015 2:00p [facility] Aaron Gibbons, 17739 401.1 - Gagan Rachel 569.3 414.01 681.11 V03.82 V06.1 Office Visit 12/10/2014 11:40a [facility] Aaron Gibbons, 73833 569.3 - Gagan Rachel 723.1 Office Visit 11/28/2014 3:20p [facility] Sebastián Barker M.D., 62104 401.1 [facility] AT [facility], [facility] 414.9 272.2 Office Visit 05/16/2014 2:15p [facility] Sebastián Barker M.D., 41313 414.9 [facility] AT [facility], [facility] 401.1 272.2 Office Visit 03/04/2014 2:45p [facility] Sebastián Barker M.D., 59972 414.9 [facility] AT [facility], [facility] 401.1 272.2 Office Visit 02/17/2014 3:40p [facility] Aaron Gibbons, 89637 414.01 - Gagan Rachel 401.1 272.2 Office Visit 01/16/2014 2:45p [facility] Viktoriya Barker M.D., 14960 414.01 [facility] AT [facility], [facility] 401.1 272.2 Office Visit 01/13/2014 11:21a [facility] Viktoriya Barker M.D., [address] [facility], [facility] 411.1 414.9 Office Visit 01/12/2014 9:30a [facility] Dev Smith, 85569 786.50 MRomario 785.0 414.01 410.71 Office Visit 01/11/2014 3:46p [facility] Dev Smith M.D. 64130 411.1 410.71 401.1 Office Visit 01/10/2014 10:37a [facility] Viktoriya Barker M.D., 54746 413.9 [facility] 411.1 Office Visit 01/10/2014 7:47p [facility] Kenn Del Angel 79637 410.71 Hospitalists Virginie Higgins 401.1 Office Visit 01/09/2014 2:32p [facility] Meagan Macias M.D. 82046 786.50 [employer] 796.4 Office Visit 01/09/2014 7:46p [facility] Kenn Del Angel 74655 410.71 Hospitalists Virginie Higgins 401.1 Office Visit 01/08/2014 7:46p [facility] Kimberly, 01256 410.71 Assoc, Hospitalromeo Rachel 401.1 Office Visit 08/08/2013 3:40p [facility] Aaron Gibbons 84319 599.0 - Gagan Rachel Office Visit 05/15/2013 11:15a [facility] Storm Davison 11837 715.95 Of Earline Dorsey Office Visit 02/21/2013 10:30a [facility] Anastasiya Dhillon M.D. 77206 599.0 - Gagan 627.3 Office Visit 02/11/2013 1:20p [facility] Aaron Gibbons 05781 401.1 - Gagan Rachel 272.0 Office Visit 10/23/2012 3:00p [facility] Lisa Hernandez N.P. 85545 599.0 - Gagan 401.1 Office Visit 08/13/2012 1:00p [facility] Aaron Gibbons 40203 401.1 - Gagan Rachel V76.19 733.90 272.0 Office Visit 05/17/2012 10:15a [facility] Maicol Carrasco 55286 715.95 Dante Rachel Office Visit 03/07/2012 9:30a [facility] Alyce 99407 599.0 - Gagan Garcia N.P. 627.3 Office Visit 08/17/2011 2:00p DO Not Use [employer]folio Consult[employer] AT [facility] 81534 599.0 [facility] Office Visit 04/26/2011 1:00p DO Not Use [employer] AT Lisa David, 17997 V72.84 Michael N.Lisa 401.1 715.95 272.0 Office Visit 02/16/2011 2:00p [facility] Connor Ojeda M.D. 94173 715.95 [facility] Office Visit 11/12/2010 10:20a DO Not Use [employer] Consultant AT AaronHudson, 72857 401.1 Michael Rachel 715.95 272.0 V04.81 Office Visit 07/27/2010 1:00p DO Not Use [employer] [facility] AT [facility], 37369 723.1 Michael Goddard.Gita 300.09 401.1 Office Visit 07/23/2010 9:45a [facility] True Vitale, 43033 847.0 Portfolio Consultant M.D. Office Visit 07/14/2010 1:45p [facility] True [place]ale, 00362 723.4 [employer] Consultant M.DSanam 721.0 847.0 Office Visit 07/12/2010 2:30p [facility] Holly Hager RPA-Darin 97553 847.0 [facility] 723.1 Office Visit 06/23/2010 10:00a [facility] Holly Hager RPA-Darin 67383 719.41 Of [facility] 723.1 Office Visit 06/18/2010 11:40a DO Not Use [employer] Consultant AT [facility], 36899 726.19 Michael Goddard.Gita Office Visit 06/07/2010 9:30a [facility] Connor Ojeda M.D. 24795 715.95 [facility] Office Visit 05/12/2010 10:00a DO Not Use [employer] Consult[facility] AT [facility], 01932 715.00 Michael Goddard.Gita 401.1 272.0 Office Visit 10/21/2009 1:30p DO Not Use [employer] Consult[employer] AT [facility], 92872 401.1 Michael Goddard.Gita 715.00 388.70 Office Visit 09/10/2009 2:15p DO Not Use [employer]folio Consultant AT Aaron[facility]usdon, 79983 388.70 [facility] M.Gita Office Visit 04/20/2009 10:30a [facility], 66198 401.1 [facility].D. Office Visit 03/20/2009 11:00a [facility], 35532 401.1 [facility].D. Office Visit 12/31/2007 11:00a [facility], 32567 715.00 [facility].D 272.0 401.1 Office Visit 07/02/2007 11:00a [facility], 26533 272.0 [facility] 715.00 401.1 Plan of Care Future Appointment(s):06/04/2018 8:45 am - ALEJO Watt at [facility]05/24/2018 1:00 pm - Kyle Jung PA-C at [facility]05/24/2018 1:00 pm - ALEJO Watt at [facility]05/10/2018 8:45 am - Dev Smith M.D. at [facility]05/24/2018 1:00 pm - Glenna Peguero M.D. at [facility]09/03/2018 2:20 pm - Aaron Gibbons M.D. at [facility] - Yiaqydupt46/01/2018 - Glenna Peguero M.D.M25.551 Pain in right hipFollow up:Follow up: 2 weeks after vupbzkwU37.11 Unilateral primary osteoarthritis, right hip
--- OUTSIDE RECORDS SUMMARY | 2018-05-24 10:40 | XMS REPORT ---
:1930 External Reference #:[id number] Author Organization [employer] Address [address] [place] [address] Phone [phone] Care Team Providers Name Role Phone Aaron Gibbons III, MD Primary Care Physician Unavailable Payers Type Date Identification Numbers Payment Provider Subscriber Medicare Primary Effective: Policy Number: Medicare Alpa Kearney 1995 [id number] PayID: [id number] [address] [place] [address] Medigap Part B Policy Number: [id number] For Life Robertjuli Kearney PayID: [id number] [address] [place] [address] Advance Directives Type Date Description Status Comment [...] Onset: 01/16/2014 Coronary arteriosclerosis Sebastián Barker M.D., [facility], Active [facility] Onset: 01/16/2014 Mixed hyperlipidemia Sebastián Barker M.D., [facility], Active [facility] Onset: 03/04/2014 Chronic ischemic heart disease Sebastián Barker M.D., [facility], Active [facility] Onset: 04/30/2018 Localized, primary osteoarthritis [...] Active Tablets 20mg 90tab take 1 Aaron Caldera Calcium /2014 s tablet at Edwige, bedtime M.D. Lisinopril 11/28 Active Tablets 5mg 180ta 1 by mouth bs twice a day Virginie Barker, [facility], [facility] Aspirin Ec Active Tablets 81mg 90tab 1 tablet Unknown Lo-Dose /0000 DR s daily. Glucosamine Active Capsules 1 cap po Unknown Chondroitin / daily Complex Metoprolol Active Tablets 100mg 180ta 1 by mouth Sebastián Succinate ER /0000 ER 24HR bs twice a day Virginie Barker, [facility], [facility] Amlodipine Active Tablets 2.5mg 90tab 1 by mouth Sebastián Besylate /0000 s every day Virginie Barker, [facility], [facility] Amoxicillin Active Capsules 500mg 12cap 4 tablets 1 Unknown /0000 s hour before dental work Co Q-10 Active Capsules 100mg 90cap 1 by mouth Unknown /0000 s every day Calcium + D3 Active Tablets 600-200mg once daily Unknown /0000 -Unit Alendronate Active Tablets 70mg take 1 Unknown Sodium /0000 tablet by mouth every week Ciprofloxacin HCL Active Tablets 250mg one by mouth Unknown /0000 twice a day Alendronate 10/16 Hx Tablets 70mg 12tab take 1 M85.831 Aaron Fely. Sodium /2017 s tablet by Edwige, - mouth every M.D. 05/21 week /2018 Keflex 10/06 Hx Capsules 500mg 10cap take 1 tab R23.8 Aaron E. s by mouth q12 Edwige, - hours for 5 M.D. Probiotic Complex 10/06 Hx Capsules 60cap Take 1 R23.8 Catarino Acidophilus s capsule [place], - daily for 60 M.D. Keflex 02/17 Hx Capsules 500mg 20cap 1 by mouth 681.11 Aaron Caldera s twice a day Edwige, - M.D. 04/19 Lisinopril 07/09 Hx Tablets 5mg 90tab 1 by mouth Sebastián s every in the [facility], - morning M.D., 11/28 [facility], [facility] Cipro 03/19 Hx Tablets 250mg 14tab one by vlad Caldera s twice daily Edwige, - for 7 days M.D. 05/14 Cipro 02/10 Hx Tablets 250mg 14tab one by vlad Caldera s twice daily Edwige, - for 7 days M.D. 02/17 Lisinopril 01/16 Hx Tablets 10mg 90tab take one [facility] mouth every M.D., 11/28 at night [facility], [facility] Zestoretic 04/01 Hx Tablets 10-12.5mg 90tab 1 po qd Aaron ESanam s Edwige, - M.D. 04/01 Cipro 10/23 Hx Tablets 250mg 10tab take one 599.0 Aaron E. s pill twice Edwige, - daily for 5 M.D. Cyclobenzaprine 04/23 Hx Tablets 5mg 15tab 1 po tid prn Dirk HCL s muscle spasm Rusty, - M.D. 08/13 Cipro 03/07 Hx Tablets 250mg 14tab take one 599.0 Alyce s pill twice Surinder-W - daily for 7 atson, 08/13 days N.P. Premarin 03/07 Hx Cream 0.625mg/G 42.50 administer 627.3 Alyce M 0gm 0.5 grams [place]-W - twice weekly atson, 01/15 N.P. Cipro 08/18 Hx Tablets 500mg 14tab 1 po bid . s Aundrea Gibbons M.D. 03/07 Coumadin 05/11 Hx Tablets 2.5mg 90tab take as s directed at Rusty, - 5pm daily M.Gita 03/07 Percocet 05/11 Hx Tablets 5-325mg 90tab 1-2 tabs po s q4-6 prn Rusty, - pain M.DSanam 03/07 Cipro 03/02 Hx Tablets 500mg 14tab 1 po bid X7 Sanam s Aundrea Kim M.D. 04/26 Ibuprofen 11/12 Hx Capsules 200mg prn Sanam Aundrea Gibbons M.D. 01/15 Zestoretic 11/12 Hx Tablets 10-12.5mg 90tab 1 po qd . s Aundrea Gibbons M.D. 01/15 Medrol Dosepak 07/14 Hx Tablets 4mg 1tabs follow Aaron ESanam package Edwige - directions Virginie 04/26 take with food Flexeril 07/03 Hx Tablets 10mg 15tab 1 po QHS prn Aaron E. s Aundrea Gibbons M.D. 04/26 Acetasol HC [...] 10cap 1 PO bid X 5 Aaron ESanam s Aundrea Kim M.D. 03/20 Tylenol Hx Tablets 325mg 100ta prn Barkteresita, /0000 bs MD Vipul - 04/29 Advil [...] Aaron E. /0000 s Aundrea Gibbons M.D. 01/15 Calcium + D Hx Tablets 600-200mg 60tab 1 po bid Unknown /0000 -Unit s - 01/15 Metoprolol Hx 25mg 1 1/2 tab po Unknown /0000 Tablet bid - 01/15 Enalapril Maleate Hx Tablets 10mg 30tab 1 by mouth Unknown /0000 s every day - 01/15 Atorvastatin Hx Tablets 40mg 90tab 1/2 tab by Sebastián Boyer /0000 s mouth every Stefek, - day M.D., 04/20 [facility] Nitrostat Hx Tablets 0.4mg 25tab one sl q5min Unknown /0000 Sub s up to 3 - doses as 02/25 Brilinta Hx Tablets 90mg 180ta 1 tab by Sebastián /0000 bs mouth twice Stefek, - a day M.D., 12/30 [facility] Lisinopril Hx Tablets 10mg 90tab 1 by mouth Unknown /0000 s every day - 01/16 Premarin Hx Cream 0.625mg/G 42.50 1/2 Unknown /0000 M 0gm application - by way of 11/27 weekly Calcium 600+D3 00/00 Hx Tablets 600-800mg daily Unknown /0000 -Unit - 08/24 Ketoconazole 00 Hx Cream 2% apply thin Unknown /0000 film once - daily 04/19 Vitamin D High Hx Capsules 1000Unit 2 by mouth Unknown Potency /0000 every day - 04/29 Calcium 600 Hx Tablets 1500(600C Unknown /0000 a) mg - 08/25 Immunizations CPT Code Status Date Vaccine Lot # [id number] Given 08/28/2017 Influenza Virus Vaccine, Quadrivalent, Split, [id number] Preservative Free 62178 Given 08/25/2016 Influenza Virus Vaccine, Quadrivalent, Split [id number] Virus, [place] Use 65224 Given 08/24/2015 Influenza Virus Vaccine, Quadrivalent, Split, [id number] Preservative Free 61285 Given 02/17/2015 Tdap - Tetanus/Diptheria/Acellular Pertussis [id number] 10381 Given 02/17/2015 Pneumococcal Conjugate Vaccine 13 Valent For [id number] Intramuscular Use 07213 Given 08/20/2014 Flu Vaccine Split Virus Preservative Free For [id number] Indiv 3Yr Older 72726 Given 08/14/2013 Flu Vaccine Split Virus Preservative Free For [id number] Indiv 3Yr Older 78441 Given 09/19/2012 Zoster (Zostavax) [id number] Q2038 Given 07/11/2012 Fluzone Vaccine [id number] Q2038 Given 11/12/2010 Fluzone Vaccine [id number] 39281 Given 07/28/2008 Influenza Virus 3Yrs & Over 09349 Given 07/23/2007 Influenza Virus 3Yrs & Over 46838 Given 07/23/2007 Influenza Virus 3Yrs & Over 72186 Given 07/23/2007 Influenza Virus 3Yrs & Over 89116 48457 Given 05/04/2004 Td (History By Patient) [id number] 80471 Given 03/25/1999 Pneumovax (History By Patient) Vital Signs Date Vital Result Comment 05/08/2018 Height 63.5 inches 5'3.50" Weight 146.00 [...] Color Yellow Urine Appearance Cloudy Urine Specific [place] 1.012 1.010-1.030 Urine pH 5.0 5-9 Urine [...] Color Ayesha Urine Appearance Turbid Urine Specific [place] 1.029 1.010-1.030 Urine pH 5.0 5-9 Urine [...] Color Yellow Urine Appearance Clear Urine Specific [place] 1.012 1.010-1.030 Urine Esterase Trace Negative Urine [...] None Seen Ua Routine 08/08/2013 Ua Specific [place] 1.015 Ua PH 5 Ua Color yellow [...] >60 40 Ua Routine 02/21/2013 Ua Specific [place] 1.005 Ua PH 7.0 Ua Color yellow Ua Appera cloudy Ua WBC moderate Ua Protein +30 Ua Glucose neg Ua Ketones neg Ua Bilirubin small Ua Urobilinogen neg Ua Nitrite positive Ua Occult Blood non hem trace Urine Culture And Sensitivities 02/21/2013 Urine Culture (SEE NOTE) 41 Urine Culture And Sensitivities 10/23/2012 Urine Culture (SEE NOTE) 42 Ua Routine 10/23/2012 Ua Specific [place] 1.005 Ua PH 5 Ua Color yellow [...] Color ORANGE Yellow Appearance-Urine CLEAR Clear Specific [place]-Ur 1.009 Low 1.010-1.030 Esterase-Urine 3+ Negative Nitrite POSITIVE Negative Cpzliadzancw-Nv-CMY NEGATIVE Negative Protein-Urine NEGATIVE Negative PH-Urine 6.0 [...] Color ORANGE Yellow Appearance-Urine CLOUDY Clear Specific [place]-Ur 1.016 1.010-1.030 Esterase-Urine 3+ Negative Nitrite POSITIVE Negative Hnievybjstja-En-JQG NEGATIVE Negative Protein-Urine NEGATIVE Negative PH-Urine 6.5 [...] inflammation: >10.00 15 SEE RESULT BELOW Name: ALPA KEARNEY : [address]: Aaron Gibbons III, MD Acct: [id number] Unit: [id number] AGE: 85 Location: [facility] Re11/02/15 SEX: F Status: REG REF SPEC: [id number] MICHAELA: 11/02/[address]: Aaron Gibbons III, MD REQ: [id number] RECD: 11/02/15 STATUS: COMP _ SOURCE: URINE SPDESC: ORDERED: Urine Culture Procedure Result Reported Site Urine Culture Final 11/03/15- 3 ML No growth of clinically significant organisms * ML - MAIN LAB ([facility]) . END OF REPORT * ML=Testing performed at Main Lab DEPARTMENT OF PATHOLOGY, [address] [place] [address] Gabriele Ravi M.D. Director [facility] # [id number] 16 Because ethnic data is not always [...] FASTING 29 FASTING 30 RUN DATE: 03/20/14 [facility] LAB LIVE PAGE 1 RUN TIME: [address] [place], [place] [address] Specimen Inquiry Name: ALPA KEARNEY : [address]: Aaron Gibbons III, MD Acct: [id number] Unit: [id number] AGE: 83 Location: [facility] Re03/18/14 SEX: F Status: REG REF SPEC: [id number] MICHAELA: 03/18/14-[address]: Aaron Gibbons III, MD REQ: [id number] RECD: 03/18/14-1609 STATUS: COMP _ SOURCE: URINE SPDESC: ORDERED: Urine Culture QUERIES: Medent Number [id number] Urine Source: Random Procedure Result Verified Site Urine Culture Final 03/20/14- 1003 ML Organism 1 ENTEROBACTER CLOACAE COMPLEX [place] Count >100,000 (Many) CFU/ML 1. ENTEROBACTER CLOACAE [...] performed at Main Lab DEPARTMENT OF PATHOLOGY, [address] [place] [address] Gabriele Ravi M.D. Director [facility] # [id number] 31 *Ascorbic acid is present which may interfere with detection of blood. 32 >100 to <200 pg/mL: likely compensated congestive heart failure (CHF) 200 to 400 pg/mL: likely moderate CHF >400 pg/mL: likely moderate to severe CHF [facility] 33 Because ethnic data is not always [...] (or dialysis) 34 Result TnIDx:0.67 Called to [id number] at: 12:59:35 by:[id number] Read back by: [id number] Reference Range and Interpretation: TnI (ng/mL) Interpretation Less Than 0.03 ng/mL Not supportive of diagnosis of SD 0.03 - 0.50 ng/mL Indeterminate: suggest serial studies if clinically indicated. Greater than 0.5 ng/mL Consistent with diagnosis of SD 35 Because ethnic data is not always [...] (or dialysis) 36 Result TnIDx:0.66 Called to [id number] at: 19:50:58 by:[id number] Read back by: [id number] Reference Range and Interpretation: TnI (ng/mL) Interpretation Less Than 0.03 ng/mL Not supportive of diagnosis of SD 0.03 - 0.50 ng/mL Indeterminate: suggest serial studies if clinically indicated. Greater than 0.5 ng/mL Consistent with diagnosis of SD 37 RUN DATE: 08/16/13 [facility] LAB LIVE PAGE 1 RUN TIME: [address] [place], [place] [address] Specimen Inquiry Name: ALPA KEARNEY : [address]: Aaron Gibbons III, MD Acct: [id number] Unit: [id number] AGE: 82 Location: [facility] Re08/14/13 SEX: F Status: REG REF SPEC: [id number] MICHAELA: 08/14/131436 [facility] DR: Aaron Gibbons III, MD REQ: [id number] RECD: 08/14/13 STATUS: COMP _ SOURCE: URINE SPDESC: ORDERED: Urine Culture QUERIES: Medent Number [id number] Procedure Result Verified Site Urine Culture Final 08/16/13- 1130 ML Organism 1 NORMAL ARABELLA [place] Count 10-25,000 (Moderate) CFU/ML END OF REPORT * ML=Testing performed at Main Lab DEPARTMENT OF PATHOLOGY, [address] [place] [address] Gabriele Ravi M.D. Director [facility] Permit #[id number] 38 HDL Interpretation: Undesirable: High Risk: Less [...] <15 (or dialysis) 41 RUN DATE: 02/23/13 [facility] LAB LIVE PAGE 1 RUN TIME: [address] [place] [address] Specimen Inquiry Name: ALPA KEARNEY : [address]: Anastasiya Dhillon MD Acct: [id number] Unit: [id number] AGE: 82 Location: [facility] Re02/21/13 SEX: F Status: REG REF SPEC: [id number] MICHAELA: 02/21/131110 [facility] DR: Anastasiya Dhillon MD REQ: [id number] RECD: 02/21/135470 STATUS: COMP _ SOURCE: URINE SPDESC: ORDERED: Urine Culture QUERIES: Medent Number [id number] Procedure Result Verified Site Urine Culture Final 02/23/13- 0910 ML Organism 1 ESCHERICHIA COLI [place] Count >100,000 (Many) CFU/ML 1. ESCHERICHIA COLI [...] performed at Main Lab DEPARTMENT OF PATHOLOGY, [facility] [address] [place], [place] [address] Gabriele Ravi M.D. Director [facility] Permit #[id number] 42 RUN DATE: 10/25/12 [facility] LAB LIVE PAGE 1 RUN TIME: 1112 [facility] [address] [place], [place] [address] Specimen Inquiry Name: ALPA KEARNEY : [address]: Lisa Hernandez NP Acct: [id number] Unit: [id number] AGE: 82 Location: [facility] Re10/23/12 SEX: F Status: REG REF SPEC: [id number] MICHAELA: 10/23/12-[address]: Lisa Hernandez NP REQ: [id number] RECD: 10/23/12-1835 STATUS: COMP _ SOURCE: URINE [facility]: ORDERED: Urine Culture QUERIES: Medent Number [id number] Procedure Result Verified Site Urine Culture Final 10/25/12- 1111 ML Organism 1 NORMAL ARABELLA [place] Count 75-100,000 (Many) CFU/ML END OF REPORT * ML=Testing performed at Main Lab DEPARTMENT OF PATHOLOGY, [address] [place] [address] Gabriele Ravi M.D. Director [facility] Permit #[id number] 43 A metabolite of Naproxen, O-desmethylnaproxen, has been shown to interfere with the Jenmikeik-Papa method for measuring total bilirubin. Samples from [...] than 60 MG/DL 47 RUN DATE: 03/10/12 [facility] NMI LIVE PAGE 1 RUN TIME: 826 Specimen Inquiry RUN USER: INTERFACE Name: AMANDAELOINAALPA Status: REG REF Re03/07/12 Age/Sex: 81/F Unit#: [id number] Location: [facility] : 31 SPEC #: [id number] MICHAELA: 03/07/12-1011 STATUS: COMP REQ #: [id number] RECD: 03/07/[address] [facility] [address]: Surinder DUTTA,Alyce Caldera SOURCE: URINE ENTR: 03/07/[address]: [facility]: ORDERED: URINE C S QUERIES: MEDENT REQUISITION # [id number] Procedure Result Verified Site > URINE CULTURE [...] *These antibiotics are not available in the [facility] Formulary. Contact the Microbiology Department for any additional antibiotic reporting. ML - [facility] State Permit #[id number] [address] [place] [address] DEPARTMENT OF PATHOLOGY, [address] [place] [address] [place] Permit #[id number] Gabriele Ravi M.D. Director Sebastián Nava M.D. Dredge Pipe Installer 48 >100^>100,000 ORGANISMS/ML (MANY)^CCU 49 Anion gap measurement may be of limited value in the presence of any alkalosis, especially in a combined acid base disorder. . 50 A metabolite of Naproxen, O-desmethylnaproxen, has been shown to interfere with the Jendrkjik-Papa method for measuring total bilirubin. Samples from [...] change was based on recommendations from the [place] [employer]. 56 Please note change in reference range effective 08 . 57 A metabolite of Naproxen, O-desmethylnaproxen, has been shown to interfere with the Jendrassik-[place] method for measuring total bilirubin. Samples from [...] change was based on recommendations from the [place] [employer]. 64 Please note change in [...] 08/02/2016 Diabetic Retinal Eye Exam Completed 04/18/2016 17858 EKG Tracing & Interpretation Completed 09/09/2015 Mammogram Completed 09/09/2015 Bone Mineral Density Test Completed 04/20/2015 59113 EKG Tracing & Interpretation Completed 11/28/2014 02455 EKG Tracing & Interpretation Completed 10/06/2014 53485 Xray Knee 3 Views Completed 09/10/2014 24817 Xray Knee 3 Views Completed 09/10/2014 70766 Rad Exam; Knee, Ap&L Completed 09/10/2014 78125 Dislocation patella closed tx w/o anesthesia Completed 09/10/2014 64663 FX Patella Care Completed 02/25/2014 39353 ECHO Transthoracic, Real-Time 2D With Doppler And Color Completed Flow 01/16/2014 70135 EKG Tracing & Interpretation Completed 01/13/2014 35198 EKG, Interpretation Only Completed 01/12/2014 25285 EKG, Interpretation Only Completed 01/11/2014 78685 Cath PLMT&NJX L Ventriculog Img S&I Completed 01/11/2014 16315 EKG, Interpretation Only Completed 01/11/2014 93871 Percutaneous Transcatheter Placement Of Intracoronary Completed Stent 01/10/2014 38440 EKG, Interpretation Only Completed 01/09/2014 28329 Left Heart Cath. Incl S/I Coronaries, Angio S/I V Gram Completed If Done 01/09/2014 69832 EKG, Interpretation Only Completed 01/09/2014 86452 Revascularization Acute Total/Subtotal Occlusion Completed 01/09/2014 77308 Revascularization Acute Total/Subtotal Occlusion Completed 08/21/2013 Mammogram Completed 07/24/2012 Bone Mineral Density Test Completed 07/24/2012 Mammogram Completed 05/17/2012 95641 Rad Exam; Pelvis Completed 05/17/2012 72570 Rad Exam; Hip Unilat Completed 06/27/2011 22537 Rad Exam; Pelvis Completed 06/27/2011 05449 Rad Exam; Hip Unilat Completed 05/17/2011 67642 THR Total Hip Replacement Completed 05/17/2011 06714 THR Total Hip Replacement Completed 04/26/2011 90032 EKG Tracing & Interpretation Completed 02/16/2011 94646 Rad Exam; Hip Unilat Completed 02/16/2011 87441 Rad Exam; Pelvis Completed 11/29/2010 Mammogram Completed 02/11/2009 Colonoscopy Completed Encounters Type Date Location Provider CPT E/M Dx Office Visit 04/30/2018 [facility] Glenna Peguero M.D. 53708 M25.551 9:30a Of Dante M16.11 Office Visit 04/18/2018 2:00p [facility] Internal Medicine Aaron Gibbons, 93876 M25.551 - Angel Rachel Office Visit 02/26/2018 2:20p [facility] Internal Medicine Aaron Gibbons, 56126 I10 - Angel Rachel I25.10 E78.2 M85.9 L98.9 Office Visit 10/16/2017 1:00p [facility] Internal Aaron Gibbons, 02749 M85.831 Medicine Aundrea Ortiz M.D. Office Visit 10/06/2017 12:06p [facility] Susi Gamboa, CONSTRUCTION INSPECTOR 52893 R23.8 R23.8 Office Visit 10/04/2017 11:46a [facility] Susi Gamboa, CONSTRUCTION INSPECTOR 29269 R23.8 Office Visit 05/04/2017 10:40a [facility] Internal Aaron Gibbons, 07307 Z01.810 Stanford Ortiz M.D. H26.9 I10 I25.10 E78.2 M85.9 Office Visit 02/22/2017 11:20a [facility] Internal Medicine - Aaron Gibbons, 82418 I10 Angel Rachel E78.2 I25.10 M85.9 Office Visit 04/18/2016 2:40p [facility] Sebastián Barker M.D., 10015 I10 AT [facility], [facility] E78.2 I25.10 Office Visit 02/22/2016 10:40a [facility] Internal Medicine - Aaron Gibbons, 03725 I10 Gagan Rachel E78.2 I25.10 Office Visit 12/31/2015 11:20a [facility] Internal Medicine Aaron Gibbons, 02371 M79.652 - Gagan Rachel Office Visit 10/28/2015 4:00p [facility] Internal Medicine Aaron Gibbons, 99898 R10.813 - Gagan Rachel Office Visit 04/20/2015 11:20a [facility] Of Sebastián Barker M.D., 94676 401.1 [facility] AT [facility], [facility] 414.9 272.2 Office Visit 02/17/2015 2:00p [facility] Internal Medicine Aaron Gibbons, 54087 401.1 - Gagan Rachel 569.3 414.01 681.11 V03.82 V06.1 Office Visit 12/10/2014 11:40a [facility] Internal Medicine Aaron Gibbons, 69766 569.3 - Gagan Rachel 723.1 Office Visit 11/28/2014 3:20p [facility] Of Sebastián Barker M.D., 23206 401.1 [facility] AT [facility], [facility] 414.9 272.2 Office Visit 05/16/2014 2:15p [facility] Of Sebastián Barker M.D., 36532 414.9 [facility] AT [facility], [facility] 401.1 272.2 Office Visit 03/04/2014 2:45p [facility] Of Sebastián Barker M.D., 90430 414.9 [facility] AT [facility], [facility] 401.1 272.2 Office Visit 02/17/2014 3:40p [facility] Internal Medicine Aaron Gibbons, 88110 414.01 - Gagan Rachel 401.1 272.2 Office Visit 01/16/2014 2:45p [facility] Viktoriya Barker M.D., 62569 414.01 [facility] AT [facility], [facility] 401.1 272.2 Office Visit 01/13/2014 11:21a [facility] Viktoriya Barker M.D., 58277 413.9 [facility], [facility] 411.1 414.9 Office Visit 01/12/2014 9:30a [facility] Dev Smith, 93918 786.50 Virginie 785.0 414.01 410.71 Office Visit 01/11/2014 3:46p [facility] Dev Smith M.D. 32251 411.1 410.71 401.1 Office Visit 01/10/2014 10:37a [facility] Viktoriya Barker M.D., 71847 413.9 [facility], [facility] 411.1 Office Visit 01/10/2014 7:47p [facility], Kenn Del Angel 06189 410.71 Taryn Higgins M.D. 401.1 Office Visit 01/09/2014 2:32p [facility] Of Meagan Macias M.D. 75913 786.50 Branch Lending Officer 796.4 Office Visit 01/09/2014 7:46p [facility], Kenn Del Angel 56780 410.71 Hospitalists Virginie Higgins 401.1 Office Visit 01/08/2014 7:46p [facility] Keyon Harris, 55049 410.71 Assoc,pc Taryn Rachel 401.1 Office Visit 08/08/2013 3:40p [facility] Internal Medicine Aaron Gibbons, 57890 599.0 - Gagan Rachel Office Visit 05/15/2013 11:15a [facility] Storm Davison 91695 715.95 Of Earline Dorsey Office Visit 02/21/2013 10:30a [facility] Internal Medicine Anastasiya Dhillon M.D. 37944 599.0 - [place] 627.3 Office Visit 02/11/2013 1:20p [facility] Internal Medicine Aaron Gibbons, 11031 401.1 - Gagan Rachel 272.0 Office Visit 10/23/2012 3:00p [facility] Internal Medicine Lisa Hernandez N.PSanam 83183 599.0 - [place] 401.1 Office Visit 08/13/2012 1:00p [facility] Internal Medicine Aaron Gibbons, 52692 401.1 - Gagan Rachel V76.19 733.90 272.0 Office Visit 05/17/2012 10:15a [facility] Of Maicol Carrasco, 97033 715.95 Dante Rachel Office Visit 03/07/2012 9:30a [facility] Internal Medicine Alyce 78352 599.0 - Gagan Garcia N.P. 627.3 Office Visit 08/17/2011 2:00p DO Not Use Branch Lending Officer AT Nurse Visit sarah 68461 599.0 [facility] Office Visit 04/26/2011 1:00p DO Not Use [facility] 32077 V72.84 [facility] N.P. 401.1 715.95 272.0 Office Visit 02/16/2011 2:00p [facility] Of Connor Ojeda M.D. 13549 715.95 C.M.A. Office Visit 11/12/2010 10:20a DO Not Use Branch Lending Officer AT [facility] Verenice Gibbons, 05858 401.1 Levelssamara Rachel 715.95 272.0 V04.81 Office Visit 07/27/2010 1:00p DO Not Use Branch Lending Officer AT [facility] Verenice Edwige, 90705 723.1 Levelssamara Rachel 300.09 401.1 Office Visit 07/23/2010 9:45a [facility] Of True Patiño Iam, 94481 847.0 Branch Lending Officer M.D. Office Visit 07/14/2010 1:45p [facility] Of True GoddardSanam Vitale, 31833 723.4 Branch Lending Officer M.D. 721.0 847.0 Office Visit 07/12/2010 2:30p [facility] Of Holly Hager RPA-C 04990 847.0 C.M.A. 723.1 Office Visit 06/23/2010 10:00a [facility] Holly Hager RPA-C 59783 719.41 Of C.M.A. 723.1 Office Visit 06/18/2010 11:40a DO Not Use Branch Lending Officer AT [facility] Verenice Edwige, 45037 726.19 [facility] Virginie Office Visit 06/07/2010 9:30a [facility] Of Connor Ojeda M.D. 31229 715.95 C.M.A. Office Visit 05/12/2010 10:00a DO Not Use Branch Lending Officer AT [facility] Verenice Gibbons, [address] 715.00 [facility] [place] 401.1 272.0 Office Visit 10/21/2009 1:30p DO Not Use Branch L[employer] Officer AT [facility] Verenice Gibbons, [address]118 401.1 [facility] [place] [phone] Office Visit 09/10/2009 2:15p DO Not Use [employer] AT [facility] [address] 388.70 [facility] [place] Office Visit 04/20/2009 10:30a [facility], [address]682 401.1 [facility] [place] Office Visit 03/20/2009 11:00a [facility] AT [facility], [address] [facility] Office Visit 12/31/2007 11:00a [facility] AT [facility], [address] [facility].D. 272.0 401.1 Office Visit 07/02/2007 11:00a [facility], [address] 272.0 [facility] 715.00 401.1 Plan of Care Future Appointment(s):05/24/2018 1:00 pm - Kyle Jung PA-C at [facility]05/24/2018 1:00 pm - ALEJO Watt at [facility]05/10/2018 8:45 am - Dev Smith M.D. at [facility]05/24/2018 1:00 pm - Glenna Peguero M.D. at [facility]05/09/2018 8:30 am - Glenna Peguero M.D. at [facility]09/03/2018 2:20 pm - Aaron Gibbons M.D. at [facility] - B[facility]ag11/31/2018 - Aaron Gibbons M.D.Z01.818 Encounter for other preprocedural [id number] Essential (primary) ypbdypscmspwU68.10 Athscl heart disease of [place] coronary artery w/o ang wsynoB94.2 Mixed ryspemhkxbzytwP71.831 Oth disrd of bone density and structure, right dnixdihX68.11 Unilateral primary osteoarthritis, right hip
--- OUTSIDE RECORDS SUMMARY | 2018-05-24 10:41 | XMS REPORT ---
:1930 External Reference #:[id number] Author Organization [employer] Address [address] [place] [address] [place] [address] Phone [phone] Care Team Providers Name Role Phone Aaron Gibbons III, MD Primary Care Physician Unavailable Payers Type Date Identification Numbers Payment Provider Subscriber Medicare Primary Effective: Policy Number: Medicare Alpa Kearney 1995 [id number] PayID: [id number] [address] [place] [address] Medigap Part B Policy Number: [id number] For Life Robertjuli Kearney PayID: [id number] [address] [place] [address] Advance Directives Type Date Description Status Comment [...] Onset: 01/16/2014 Coronary arteriosclerosis Sebastián Barker M.D., [facility], Active [facility] Onset: 01/16/2014 Mixed hyperlipidemia Sebastián Barker M.D., [facility], Active [facility] Onset: 03/04/2014 Chronic ischemic heart disease Sebastián Barker M.D., [facility], Active [facility] Onset: 04/30/2018 Localized, primary [...] Form Strength Qnty SIG Indications Ordering Provider Probiotic Complex 10/06 Active Capsules 60cap Take 1 R23.8 Catarino Acidophilus s capsule Hopkins, daily for 60 M.D. days Atorvastatin 04/20 Active Tablets 20mg 90tab take 1 Aaron Boyer s tablet at Edwige, bedtime M.D. Lisinopril 11/28 Active Tablets 5mg 180ta 1 by mouth bs twice a day Virginie Barker, [facility], [facility] Aspirin Ec Active Tablets 81mg 90tab 1 tablet Unknown Lo-Dose / DR s daily. Glucosamine Active Capsules 1 cap po Unknown Chondroitin / daily Complex Metoprolol Active Tablets 100mg 180ta 1 by mouth Sebastián Succinate ER /0000 ER 24HR bs twice a day Virginie Barker, [facility], [facility] Amlodipine Active Tablets 2.5mg 90tab 1 by mouth Sebastián Besylate / s every day Virginie Barker, [facility], [facility] Amoxicillin Active Capsules 500mg [...] 70mg 12tab take 1 M85.831 Aaron E. s tablet by Edwige, - mouth every M.D. Keflex 10/06 Hx Capsules 500mg 10cap take 1 tab R23.8 Aaron E. s by mouth q12 Edwige, - hours for 5 M.D. Keflex 02/17 Hx Capsules 500mg 20cap 1 by mouth 681.11 Aaron Caldera s twice a day Edwige, - M.DSanam 04/19 Lisinopril 07/09 Hx Tablets 5mg 90tab 1 [facility] M.[facility] 11/28 [facility], [facility] Cipro 03/19 Hx Tablets 250mg 14tab one by vlad Caldera s twice daily Edwige, - for 7 days M.D. 05/14 Cipro 02/10 Hx Tablets 250mg 14tab one by vlad Caldera s twice daily Edwige, - for 7 days M.D. 02/17 Lisinopril 01/16 Hx Tablets 10mg 90tab take one s pill by Mj, - mouth every M.D., 11/28 at night [facility] Zestoretic 04/01 Hx Tablets 10-12.5mg 90tab 1 po qd Aaron E. s Edwige, - M.DSanam 04/01 Cipro 10/23 Hx Tablets 250mg 10tab [...] 627.3 Alyce /2011 M 0gm 0.5 grams [place]-W - twice weekly atson, 01/15 N.P. Cipro [...] 500mg 14tab 1 po bid X7 Aaron Sanam s Aundrea Kim M.D. 04/26 Ibuprofen [...] Hx Solution 2-1% 15cc 3-4 drops Aaron E. qid Aundrea Gibbons M.D. 06/18 Physical Therapy 10/21 Hx 20uni pt Aaron E. ts evaluation Edwige, - and Virginie 05/12 treatment for bilat hip pain Cortisporin TC 09/10 Hx 10cc 4 drops to Aaron ESanam Lear qid for Edwige - 7-10 days M.DSanam 10/21 Tamiflu 01/13 [...] every Stefek, - day M.D., 04/20 [facility], [facility] Nitrostat Hx Tablets 0.4mg 25tab one sl q5min Unknown /0000 Sub s up to 3 - doses as 02/25 Brilinta Hx Tablets 90mg 180ta 1 tab by Sebastián /0000 bs mouth twice Stefek, - a day M.D., 12/30 [facility] Lisinopril Hx Tablets 10mg 90tab 1 by mouth Unknown /0000 s every day - 01/16 Premarin Hx Cream 0.625mg/G 42.50 1/2 Unknown /0000 M 0gm application - by way of 11/27 2 weekly Calcium 600+D3 Hx Tablets 600-800mg daily Unknown /0000 -Unit - 08/24 Ketoconazole 00/ Hx Cream 2% apply thin Unknown /0000 film once - daily 04/19 Vitamin D High 00/00 Hx Capsules 1000Unit 2 by mouth Unknown Potency /0000 every day - 04/29 Calcium 600 00/ Hx Tablets 1500(600C Unknown /0000 a) mg - 08/25 Immunizations CPT Code Status Date Vaccine Lot # [id number] Given 08/28/2017 Influenza Virus Vaccine, Quadrivalent, Split, [id number] Preservative Free 93429 Given 08/25/2016 Influenza Virus Vaccine, Quadrivalent, Split [id number] Virus, [place] Use 57896 Given 08/24/2015 Influenza Virus Vaccine, Quadrivalent, Split, [id number] Preservative Free 13781 Given 02/17/2015 Tdap - Tetanus/Diptheria/Acellular Pertussis [id number] 54350 Given 02/17/2015 Pneumococcal Conjugate Vaccine 13 Valent For [id number] Intramuscular Use 36798 Given 08/20/2014 Flu Vaccine Split Virus Preservative Free For 337259 Indiv 3Yr Older 25929 Given 08/14/2013 Flu Vaccine Split Virus Preservative Free For [id number] Indiv 3Yr Older 17186 Given 09/19/2012 Zoster (Zostavax) [id number] Q2038 Given 07/11/2012 Fluzone Vaccine [id number] Q2038 Given 11/12/2010 Fluzone Vaccine [id number] 98491 Given 07/28/2008 Influenza Virus 3Yrs & Over 50013 Given 07/23/2007 Influenza Virus 3Yrs & Over 15106 Given 07/23/2007 Influenza Virus 3Yrs & Over 09406 Given 07/23/2007 Influenza Virus 3Yrs & Over [id number] 21329 Given 05/04/2004 Td (History By Patient) [id number] 19476 Given 03/25/1999 Pneumovax (History By Patient) Vital Signs Date Vital Result Comment 04/30/2018 Height 63.5 inches 5'3.50" Weight 146.00 [...] Color Yellow Urine Appearance Cloudy Urine Specific [place] 1.012 1.010-1.030 Urine pH 5.0 5-9 Urine [...] finding 04/18/2014 Alt 24 U/L 7-52 17, 24 Ast 25 U/L 13-39 17, 25 Lipid Profile (Trig/Chol/HDL) 04/18/2014 Triglycerides 74 mg/dL 17, 26 Cholesterol 130 mg/dL 17, 27 HDL Cholesterol 57.8 mg/dL 17, 28 LDL Cholesterol 57 mg/dL 17, 29 Urinalysis Profile 03/18/2014 Urine Color Ayesha Urine Appearance Turbid Urine Specific [place] 1.029 1.010-1.030 Urine pH 5.0 5-9 Urine Urobilinogen Negative Negative Urine Ketones Negative Negative Urine Protein 2+(100 mg/dL) Negative Urine Leukocytes 3+ Negative Urine Blood Negative Negative * * Negative 30 Urine Nitrite Negative Negative Urine Bilirubin Negative Negative Urine Glucose Negative Negative Urine White Blood Cell 3+(>10/hpf) Absent Urine Red Blood Cell 1+(<3/hpf) Absent Urine Bacteria 1+ Absent Urine Culture And 03/18/2014 Urine Culture (SEE NOTE) 31 Sensitivities CBC Auto Diff 01/11/2014 White Blood [...] Color Yellow Urine Appearance Clear Urine Specific [place] 1.012 1.010-1.030 Urine Esterase Trace Negative Urine [...] None Seen Ua Routine 08/08/2013 Ua Specific [place] 1.015 Ua PH 5 Ua Color yellow [...] >60 40 Ua Routine 02/21/2013 Ua Specific [place] 1.005 Ua PH 7.0 Ua Color yellow Ua Appera cloudy Ua WBC moderate Ua Protein +30 Ua Glucose neg Ua Ketones neg Ua Bilirubin small Ua Urobilinogen neg Ua Nitrite positive Ua Occult Blood non hem trace Urine Culture And Sensitivities 02/21/2013 Urine Culture (SEE NOTE) 41 Urine Culture And Sensitivities 10/23/2012 Urine Culture (SEE NOTE) 42 Ua Routine 10/23/2012 Ua Specific [place] 1.005 Ua PH 5 Ua Color yellow [...] Color ORANGE Yellow Appearance-Urine CLEAR Clear Specific [place]-Ur 1.009 Low 1.010-1.030 Esterase-Urine 3+ Negative Nitrite POSITIVE Negative [id number]-RHQ NEGATIVE Negative Protein-Urine NEGATIVE Negative PH-Urine 6.0 [...] > 60 eGFR 89.0 > 60 51 Urine Culture & 03/02/2011 Urine Culture KLEBSIELLA PNEUM <SEE 52 Sensitivi Sensitivi NOTE> Urinalysis 03/02/2011 Ua Color ORANGE Yellow W/Microscopic Appearance-Urine CLOUDY Clear Specific [place]-Ur 1.016 1.010-1.030 Esterase-Urine 3+ Negative Nitrite POSITIVE Negative Zlwyscofmbrd-Bs-KDJ NEGATIVE Negative Protein-Urine NEGATIVE Negative PH-Urine 6.5 [...] <=20 Ceftazidime <=1 Tigecycline <=0.5 Piperacillin/Tazobactam <=4 Sensitivities For Urine Culture 10/16/2010 Ampicillin 4 Amikacin <=2 Ciprofloxacin <=0.25 Ceftriaxone <=1 Cefazolin <=4 Nitrofurantoin <=16 Gentamicin <=1 Imipenem <=1 Levofloxacin <=0.12 Trimeth-Sulfa <=20 Ceftazidime <=1 Tigecycline <=0.5 Piperacillin/Tazobactam KB 28 Urine Culture & 10/16/2010 Urine Culture ESCHERICHIA COLI 53 Sensitivi Sensitivi CBC With Electronic 05/14/2010 White Blood Count 4.2 CUMM Low 4.8-10.8 Diff Red Cell Count 4.48 CUMM 4.2-5.4 Hemoglobin [...] Eosinophils 0.1 0-0.6 Abs Basophils 0 0-0.2 Lipid Profile (Trig/Chol/HDL) 05/14/2010 Triglyceride 133 mg/dL 40-200 Cholesterol 229 mg/dL High Less Than 200 54 High Density Lipoprotein 53 mg/dL 40-60 55 Cholesterol/HDL Ratio 4.32 AVERAGE 1-4.44 Low Density Lipoprotein 149 mg/dL High Less Than 100 56 Comp Metabolic Panel 05/14/2010 Sodium 137 mmol/L 135-145 Potassium 4.1 mmol/L 3.5-5.0 Chloride 100 mmol/L Low 101-111 Co2 (Carbon Dioxide) 29.0 mmol/L 22-32 Anion Gap 8.0 mmol/L 2-11 57 Glucose 79 mg/dL 70-100 58 BUN 10 mg/dL 6-24 Creatinine 0.80 mg/dL 0.50-1.40 One Over Creatinine 1.20 BUN/Creatinine Ratio 12.5 8-20 Calcium 9.4 mg/dL 8.1-9.9 59 Total Protein 6.6 GM/DL 6.2-8.1 Albumin 4.3 GM/DL 3.2-5.2 Globulin 2.3 GM/DL 2-4 Albumin/Globulin Ratio 1.9 1-3 Bilirubin Total 0.9 mg/dL 0.4-1.5 60 Alkaline Phosphatase 78 U/L 30-110 Alt (SGPT) 16 U/L 14-54 Ast (Sgot) 23 U/L 12-42 eGFR Non- 73.7 > 60 eGFR 89.2 > [address] Gibbons's Lab Panel 05/14/2010 TSH 1.65 [...] High 8-20 Calcium 9.8 mg/dL 8.1-9.9 64 Laboratory test finding 02/04/2008 TSH 1.39 MIU/ML 0.34-5.60 65 Lipid Profile 02/04/2008 Cholesterol/HDL 3.98 AVERAGE 1-4.44 65 (Trig/Chol/HDL) Ratio Cholesterol 195 mg/dL Less Than 200 65, 66 Triglyceride 76 mg/dL 40-200 65 High Density Lipoprotein 49 mg/dL 40-60 65, 67 Low Density Lipoprotein 131 mg/dL High Less Than 100 65, 68 Comp Metabolic Panel 02/04/2008 One Over Creatinine 1.11 65 Anion Gap 2.0 mmol/L 2-11 65, 69 Albumin/Globulin Ratio 1.4 1-3 65 Albumin 3.9 [...] 8-20 65 Creatinine 0.9 mg/dL 0.5-1.4 65 CBC With Electronic Diff 02/04/2008 White Blood [...] Redcell Distribution WDTH 13 % 10.5-15 65 1 Because ethnic data is not always [...] Attend Dr: Aaron Gibbons III, MD Acct: [id number] Unit: [id number] AGE: 85 Location: [facility] Re11/02/15 SEX: F Status: REG REF SPEC: [id number] MICHAELA: 11/02/15-[address] [facility] [address]: Aaron Gibbons III, MD REQ: [id number] RECD: 11/02/15 STATUS: COMP _ SOURCE: URINE [facility]: ORDERED: Urine Culture Procedure Result Reported Site Urine Culture Final 11/03/15- 1733 ML No growth of clinically significant organisms * ML - MAIN LAB ([facility]) . END OF REPORT * ML=Testing performed at Main Lab DEPARTMENT OF PATHOLOGY, [address] [place] [address] Gabriele Ravi M.D. Director [facility] # [id number] 16 Because ethnic data is not always [...] >189 mg/dL 22 FASTING 23 FASTING 24 FASTING 25 FASTING 26 Desirable <150 Borderline high 150-199 High 200-499 Very High >500 27 Desirable <200 Borderline high 200-239 High >239 28 Low <40 Desirable: 40-60 High: >60 29 Desirable <100 Near Optimal 100-129 Borderline high 130-159 High 160-189 Very High >189 30 *Ascorbic acid is present which may interfere with detection of blood. 31 RUN DATE: 03/20/14 [facility] LAB LIVE PAGE 1 RUN TIME: 1003 [address] [place], [place] [address] Specimen Inquiry Name: ALPA KEARNEY : [address]: Aaron Gibbons III, MD Acct: [id number] Unit: [id number] AGE: 83 Location: [facility] Re03/18/14 SEX: F Status: REG REF SPEC: [id number] MICHAELA: 03/18/14-[address]: Aaron Gibbons III, MD REQ: [id number] RECD: 03/18/14 STATUS: COMP _ SOURCE: URINE SPDESC: ORDERED: Urine Culture QUERIES: [employer] Number [id number] Urine Source: Random Procedure Result Verified Site Urine Culture Final 03/20/14- 1003 ML Organism 1 ENTEROBACTER CLOACAE COMPLEX [place] Count >100,000 (Many) CFU/ML 1. ENTEROBACTER CLOACAE [...] performed at Main Lab DEPARTMENT OF PATHOLOGY, [address] [place] [address] Gabriele Ravi M.D. Director [facility] # [id number] 32 >100 to <200 pg/mL: likely compensated [...] (or dialysis) 34 Result TnIDx:0.67 Called to [id number] at: 12:59:35 by:[id number] Read back by: [id number] Reference Range and Interpretation: TnI (ng/mL) Interpretation Less Than 0.03 ng/mL Not supportive of diagnosis of [place] 0.03 - 0.50 ng/mL Indeterminate: suggest serial studies if clinically indicated. Greater than 0.5 ng/mL Consistent with diagnosis of [place] 35 Because ethnic data is not always [...] (or dialysis) 36 Result TnIDx:0.66 Called to [id number] at: 19:50:58 by:[id number] Read back by: [email or web address] Reference Range and Interpretation: TnI (ng/mL) Interpretation Less Than 0.03 ng/mL Not supportive of diagnosis of [place] 0.03 - 0.50 ng/mL Indeterminate: suggest serial studies if clinically indicated. Greater than 0.5 ng/mL Consistent with diagnosis of [place] 37 RUN DATE: 08/16/13 [facility] LAB LIVE PAGE 1 RUN TIME: [address] [place] [address] Specimen Inquiry Name: ALPA KEARNEY : [address]: Aaron Gibbons III, MD Acct: [id number] Unit: [id number] AGE: 82 Location: [facility] Re08/14/13 SEX: F Status: REG REF SPEC: [id number] MICHAELA: 08/14/13-[address] [facility] [address]: Aaron Gibbons III, MD REQ: [id number] RECD: 08/14/13 STATUS: COMP _ SOURCE: URINE SPDESC: ORDERED: Urine Culture QUERIES: [employer] Number [id number] Procedure Result Verified Site Urine Culture Final 08/16/13- 1130 ML Organism 1 NORMAL ARABELLA [place] Count 10-25,000 (Moderate) CFU/ML END OF REPORT * ML=Testing performed at Main Lab DEPARTMENT OF PATHOLOGY, [address] [place] [address] Gabriele Ravi M.D. Director [facility] Permit #[id number] 38 HDL Interpretation: Undesirable: High Risk: Less [...] <15 (or dialysis) 41 RUN DATE: 02/23/13 [facility] LAB LIVE PAGE 1 RUN TIME: [address] [place] [address] Specimen Inquiry Name: ALPA KEARNEY : [address]: Anastasiya Dhillon MD Acct: [id number] Unit: [id number] AGE: 82 Location: [facility] Re02/21/13 SEX: F Status: REG REF SPEC: [id number] MICHAELA: 02/21/13-[address] [facility] [address]: Anastasiya Dhillon MD REQ: [id number] RECD: 02/21/134366 STATUS: COMP _ SOURCE: URINE SPDESC: ORDERED: Urine Culture QUERIES: Med[employer] Number [id number] Procedure Result Verified Site Urine Culture Final 02/23/13- 0910 ML Organism 1 ESCHERICHIA COLI [place] Count >100,000 (Many) CFU/ML 1. ESCHERICHIA COLI [...] performed at Main Lab DEPARTMENT OF PATHOLOGY, [facility] [employer] [place], [place] [address] Gabriele Ravi M.D. Director [facility] Permit #[id number] 42 RUN DATE: 10/25/12 [facility] LAB LIVE PAGE 1 RUN TIME: 1112 [facility] [address] [place], [place] [address] Specimen Inquiry Name: ALPA KEARNEY : [address]: Lisa Hernandez NP Acct: [id number] Unit: [id number] AGE: 82 Location: [facility] Re10/23/12 SEX: F Status: REG REF SPEC: [id number] MICHAELA: 10/23/12-[address]: Lisa Hernandez NP REQ: [id number] RECD: 10/23/12056 STATUS: COMP _ SOURCE: URINE SPDESC: ORDERED: Urine Culture QUERIES: [employer] Number [id number] Procedure Result Verified Site Urine Culture Final 10/25/12- 1111 ML Organism 1 NORMAL ARABELLA [place] Count 75-100,000 (Many) CFU/ML END OF REPORT * ML=Testing performed at Main Lab DEPARTMENT OF PATHOLOGY, [address] [place] [address] Gabriele Ravi M.D. Director [facility] Permit #[id number] 43 A metabolite of Naproxen, O-desmethylnaproxen, has [...] than 60 MG/DL 47 RUN DATE: 03/10/12 [facility] NMI LIVE PAGE 1 RUN TIME: 826 Specimen Inquiry RUN USER: INTERFACE Name: ALPA KEARNEY Status: REG REF Re03/07/12 Age/Sex: 81/F Unit#: [id number] Location: [facility] : [birth year] SPEC #: [id number] MICHAELA: 03/07/12 STATUS: REG REQ #: [id number] RECD: 03/07/12-[address] [facility] [address]: Alyce Cadena NP SOURCE: URINE ENTR: 03/07/12-172 [facility] [address] ORDERED: URINE C S QUERIES: [employer]ENT REQUISITION # [id number] Procedure Result Verified Site > URINE CULTURE [...] *These antibiotics are not available in the [facility] Formulary. Contact the Microbiology Department for any additional antibiotic reporting. ML - [facility] Permit #[id number] [address] [place] [address] DEPARTMENT OF PATHOLOGY, [address] [place] [address] [facility] Permit #[id number] Gabriele Ravi M.D. Director Sebastián Nava M.D. [employer] 48 >100^>100,000 ORGANISMS/ML (MANY)^CCU 49 Anion gap measurement may be of limited value in the presence of any alkalosis, especially in a combined acid base disorder. . 50 A metabolite of Naproxen, O-desmethylnaproxen, has been shown to interfere with the [place] method for measuring total bilirubin. Samples from [...] ORGANISMS/ML (MANY)^CCU 53 >100^>100,000 ORGANISMS/ML (MANY)^CCU 54 CHOLESTEROL INTERPRETATION: Desirable: Less than 200 MG/DL Borderline-High Risk: 200-239 MG/DL High-Risk: 240 MG/DL and over 55 HDL INTERPRETATION: Undesirable: High Risk: Less than 40 MG/DL Desirable: Low Risk: Greater than 60 MG/DL 56 LDL INTERPRETATION: Low Risk Optimal Level: LDL Less than 100 MG/DL Near or Above Optimal: LDL 100-129 MG/DL Borderline High Risk: LDL 130-159 MG/DL High Risk: LDL 160-189 MG/DL Very High Risk: LDL Greater than 189 MG/DL 57 Anion gap measurement may be of limited value in the presence of any alkalosis, especially in a combined acid base disorder. . 58 Note change in reference range as of 05/29/08. The change was based on recommendations from the [place] [employer]. 59 Please note change in reference range effective 08 . 60 A metabolite of Naproxen, O-desmethylnaproxen, has been shown to interfere with the [place] method for measuring total bilirubin. Samples from patients who have taken Naproxen have shown spurious elevation in total bilirubin levels. 61 Because ethnic data is not always readily [...] 15-29 5 Kidney failure <15 (or dialysis) 62 Anion gap measurement may be of limited value in the presence of any alkalosis, especially in a combined acid base disorder. . 63 Note change in reference range as of 05/29/08. The change was based on recommendations from the [place] [employer]. 64 Please note change in reference range effective 08 . 65 PATIENT MAY HAVE RESULTS PER DOCTOR'S AUTHORIZATION. Questions regarding this report should be directed to your doctor. 66 CHOLESTEROL INTERPRETATION: Desirable: Less than 200 MG/DL Borderline-High Risk: 200-239 MG/DL High-Risk: 240 MG/DL and over 67 HDL INTERPRETATION: Undesirable: High Risk: Less than 40 MG/DL Desirable: Low Risk: Greater than 60 MG/DL 68 LDL INTERPRETATION: Low Risk Optimal Level: LDL Less than 100 MG/DL Near or Above Optimal: LDL 100-129 MG/DL Borderline High Risk: LDL 130-159 MG/DL High Risk: LDL 160-189 MG/DL Very High Risk: LDL Greater than 189 MG/DL 69 Anion gap measurement may be of limited value in the presence of any alkalosis, especially in a combined acid base disorder. . Procedures Date CPT Code Description Status 09/21/2017 Mammogram Completed 09/21/2017 Bone Mineral Density Test Completed 08/02/2016 Diabetic Retinal Eye Exam Completed 04/18/2016 26905 EKG Tracing & Interpretation Completed 09/09/2015 Mammogram Completed 09/09/2015 Bone Mineral Density Test Completed 04/20/2015 56827 EKG Tracing & Interpretation Completed 11/28/2014 47422 EKG Tracing & Interpretation Completed 10/06/2014 62538 Xray Knee 3 Views Completed 09/10/2014 83329 Xray Knee 3 Views Completed 09/10/2014 44258 Rad Exam; Knee, Ap&L Completed 09/10/2014 85221 Dislocation patella closed tx w/o anesthesia Completed 09/10/2014 90208 FX Patella Care Completed 02/25/2014 26613 ECHO Transthoracic, Real-Time 2D With Doppler And Color Completed Flow 01/16/2014 28035 EKG Tracing & Interpretation Completed 01/13/2014 44452 EKG, Interpretation Only Completed 01/12/2014 84089 EKG, Interpretation Only Completed 01/11/2014 33860 Cath PLMT&NJX L Ventriculog Img S&I Completed 01/11/2014 74985 EKG, Interpretation Only Completed 01/11/2014 36822 Percutaneous Transcatheter Placement Of Intracoronary Completed Stent 01/10/2014 69103 EKG, Interpretation Only Completed 01/09/2014 58420 Left Heart Cath. Incl S/I Coronaries, Angio S/I V Gram Completed If Done 01/09/2014 82164 EKG, Interpretation Only Completed 01/09/2014 28022 Revascularization Acute Total/Subtotal Occlusion Completed 01/09/2014 86389 Revascularization Acute Total/Subtotal Occlusion Completed 08/21/2013 Mammogram Completed 07/24/2012 Bone Mineral Density Test Completed 07/24/2012 Mammogram Completed 05/17/2012 27136 Rad Exam; Pelvis Completed 05/17/2012 38251 Rad Exam; Hip Unilat Completed 06/27/2011 77633 Rad Exam; Pelvis Completed 06/27/2011 36946 Rad Exam; Hip Unilat Completed 05/17/2011 07479 THR Total Hip Replacement Completed 05/17/2011 32405 THR Total Hip Replacement Completed 04/26/2011 24016 EKG Tracing & Interpretation Completed 02/16/2011 54073 Rad Exam; Hip Unilat Completed 02/16/2011 51676 Rad Exam; Pelvis Completed 11/29/2010 Mammogram Completed 02/11/2009 Colonoscopy Completed Encounters Type Date Location Provider CPT E/M Dx Office Visit 04/18/2018 [facility] Internal Medicine Aaron Gibbons 74859 M25.551 2:00p - Angel Rachel Office Visit 02/26/2018 [facility] Internal Medicine Aaron Gibbons 70432 I10 2:20p - Angel Rachel I25.10 E78.2 M85.9 L98.9 Office Visit 10/16/2017 1:00p [facility] Internal Aaron Gibbons 99226 M85.831 Stanford Ortiz M.D. Office Visit 10/06/2017 12:06p [facility] Susi Gamboa, SUPERVISOR DYER 91343 R23.8 R23.8 Office Visit 10/04/2017 11:46a [facility] Susi Gamboa, SUPERVISOR DYER 68666 R23.8 Office Visit 05/04/2017 10:40a [facility] Internal Aaron Gibbons, 18304 Z01.810 Medicine - Angel Rachel H26.9 I10 I25.10 E78.2 M85.9 Office Visit 02/22/2017 11:20a [facility] Internal Medicine - Aaron Gibbons, 61441 I10 Angel Rachel E78.2 I25.10 M85.9 Office Visit 04/18/2016 2:40p [facility] Sebastián Barker M.D., 95645 I10 AT [facility], [facility] E78.2 I25.10 Office Visit 02/22/2016 10:40a [facility] Internal Medicine - Aaron Gibbons, 10425 I10 Gagan Rachel E78.2 I25.10 Office Visit 12/31/2015 11:20a [facility] Internal Medicine Aaron Gibbons, 25353 M79.652 - Gagan Rachel Office Visit 10/28/2015 4:00p [facility] Internal Medicine Aaron Gibbons, 11398 R10.813 - Gagan Rachel Office Visit 04/20/2015 11:20a [facility] Sebastián Barker M.D., 03480 401.1 [facility] AT [facility], [facility] 414.9 272.2 Office Visit 02/17/2015 2:00p [facility] Internal Medicine Aaron Gibbons, 13825 401.1 - Gagan Rachel 569.3 414.01 681.11 V03.82 V06.1 Office Visit 12/10/2014 11:40a [facility] Internal Medicine Aaron Gibbons, 24643 569.3 - Gagan Rachel 723.1 Office Visit 11/28/2014 3:20p [facility] Sebastián Barker M.D., 99373 401.1 [facility] AT [facility], [facility] 414.9 272.2 Office Visit 05/16/2014 2:15p [facility] Sebastián Barker M.D., 43096 414.9 [facility] AT [facility], [facility] 401.1 272.2 Office Visit 03/04/2014 2:45p [facility] Sebastián Barker M.D., 06420 414.9 [employer] AT [facility], [facility] 401.1 272.2 Office Visit 02/17/2014 3:40p [facility] Internal Medicine Aaron Gibbons, 05933 414.01 Aundrea Farah M.D. 401.1 272.2 Office Visit 01/16/2014 2:45p [facility] [facility] Sebasti[facility] Barker M.D., 42325 414.01 [facility] AT [facility], FSCAI 401.1 272.2 Office Visit 01/13/2014 11:21a [facility] M.D., 29160 413.9 [facility], FSCAI 411.1 414.9 Office Visit 01/12/2014 9:30a [facility] Dev Smith, 23988 786.50 Virginie 785.0 414.01 410.71 Office Visit 01/11/2014 3:46p [facility] Dev Smith M.D. 34149 411.1 410.71 401.1 Office Visit 01/10/2014 10:37a [facility] M.D., 20083 413.9 [facility], FSCAI 411.1 Office Visit 01/10/2014 7:47p [facility],cherelle Del Angel 26563 410.71 Hospital[facility]o Higgins M.D. 401.1 Office Visit 01/09/2014 2:32p [facility] Meagan Macias M.D. 59726 786.50 [facility] 796.4 Office Visit 01/09/2014 7:46p [facility],cherelle Del Angel 48944 410.71 Hospitalists Virginie Higgins 401.1 Office Visit 01/08/2014 7:46p [facility] Keyon Kimberly, 49234 410.71 Assoc, Taryn Rachel 401.1 Office Visit 08/08/2013 3:40p [facility] Internal Medicine Aaron Gibbons, 72894 599.0 - Gagan Rachel Office Visit 05/15/2013 11:15a [facility] Storm AverySanam 62428 715.95 Of Earline Dorsey Office Visit 02/21/2013 10:30a [facility] Internal Medicine Anastasiya Dhillon M.D. 48904 599.0 - Emblem 627.3 Office Visit 02/11/2013 1:20p [facility] Internal Medicine Aaron Gibbons, 51319 401.1 - Gagan Rachel 272.0 Office Visit 10/23/2012 3:00p [facility] Internal Medicine Juli Krishnamurthy.P. 90512 599.0 - Emblem 401.1 Office Visit 08/13/2012 1:00p [facility] Internal Medicine Aaron Gibbons, 81384 401.1 - Gagan Rachel V76.19 733.90 272.0 Office Visit 05/17/2012 10:15a [facility] Maicol Rodgersyajaira 67416 715.95 Dante Rachel Office Visit 03/07/2012 9:30a [facility] Internal Medicine Alyce 85096 599.0 - Gagan Garcia N.P. 627.3 Office Visit 08/17/2011 2:00p DO Not Use Slab [employer]isher AT Nurse Visit sarah 60919 599.0 [facility] Office Visit 04/26/2011 1:00p DO Not Use Slab Polisher AT Lisa Hernandez 80019 V72.84 [place] [facility]. 401.1 715.95 272.0 Office Visit 02/16/2011 2:00p [facility] Connor Ojeda M.D. 77735 715.95 C.M.ASanam Office Visit 11/12/2010 10:20a DO Not Use Slab Polisher AT Aaron Gibbons, 82356 401.1 Michael Rachel 715.95 272.0 V04.81 Office Visit 07/27/2010 1:00p DO Not Use Slab [employer] AT Aaron Gibbons, 12334 723.1 Michael Rachel 300.09 401.1 Office Visit 07/23/2010 9:45a [facility] [place], 37798 847.0 Slab Polisher M.D. Office Visit 07/14/2010 1:45p [facility] [place], 97212 723.4 Slab Polisher M.DSanam 721.0 847.0 Office Visit 07/12/2010 2:30p [facility] Holly Hager [facility] 50802 847.0 C.M.A. 723.1 Office Visit 06/23/2010 10:00a [facility] Holly Hager, [facility] 30638 719.41 Of C.M.A. 723.1 Office Visit 06/18/2010 11:40a DO Not Use Slab Polisher AT [facility], 01813 726.19 [facility].Gita Office Visit 06/07/2010 9:30a [facility] Connor Ojeda M.D. 27311 715.95 C.M.A. Office Visit 05/12/2010 10:00a DO Not Use Slab [facility] AT [facility], 93431 715.00 [facility] 401[facility]1 272.0 Office Visit 10/21/2009 1:30p DO Not Use Slab [facility] AT [facility], 59533 401.1 [facility] 715.00 388.70 Office Visit 09/10/2009 2:15p DO Not Use Slab Polisher AT [facility], 87455 388.70 [facility].Gita Office Visit 04/20/2009 10:30a [facility] AT [facility], 47397 401.1 [facility].D. Office Visit 03/20/2009 11:00a [facility] AT [facility], 69666 401.1 [facility].D. Office Visit 12/31/2007 11:00a [facility] AT [facility], 80639 715.00 [facility].DSanam 272.0 401.1 Office Visit 07/02/2007 11:00a [facility] AT [facility], 48086 272.0 [facility].DSanam 715.00 401.1 Plan of Care Future Appointment(s):05/09/2018 8:30 am - Glenna Peguero M.D. at [facility]09/03/2018 2:20 pm - Aaron Gibbons M.D. at [facility] Internal Medicine - Mvvjiyolp35/23/2018 - Glenna Peguero M.D.M25.551 Pain in right hipFollow up:Follow up: 7-10 days before [id number] Unilateral primary osteoarthritis, right hip
[2018-05-24] MEDS ORDERED: ceFAZolin 2 GM PREMIX (*) 2 GM/50 ML BAG IVPB ONE (11:26)
[2018-05-24] MEDS ORDERED: Sodium Citrate/Citric Acid* 15 ML UDC ONE (11:26)
[2018-05-24] MEDS ORDERED: Bupivacaine 0.5% PF 10 ML VIAL INJ ONE (12:20)
[2018-05-24] MEDS ORDERED: Midazolam* 1 MG/ML 2 ML VIAL (2 MG) ONE (12:55)
[2018-05-24] MEDS ORDERED: Lidocaine 2% PF * 5 ML VIAL ONE (13:21)
[2018-05-24] MEDS ORDERED: Propofol* 10 MG/ML 20 ML BTL IV PUSH ONE (13:21)
[2018-05-24] MEDS ORDERED: Ondansetron INJ* 2 MG/ML VIAL IV PRN (15:10)
[2018-05-24] MEDS ORDERED: oxyCODONE/Acetamin 5/325 MG* TAB PO PRN (15:10)
[2018-05-24] MEDS ORDERED: Magnesium Hydroxide LIQ* 30 ML UDC PO PRN (15:10)
[2018-05-24] MEDS ORDERED: Polyethylene Glycol 3350* 17 GM PACKET PO PRN (15:10)
[2018-05-24] MEDS ORDERED: traMADol TAB* 50 MG PO PRN (15:10)
[2018-05-24] MEDS ORDERED: diPHENhydraMINE IV* 50 MG/ML 1 ml VIAL (BENADRYL) IV PRN (15:10)
[2018-05-24] MEDS ORDERED: Bisacodyl SUPP* 10 MG SUPP PR PRN (15:10)
[2018-05-24] MEDS ORDERED: Cyclobenzaprine TAB* 10 MG PO PRN (15:10)
[2018-05-24] MEDS ORDERED: Ondansetron TAB* 4 MG PO PRN (15:10)
[2018-05-24] MEDS ORDERED: Morphine INJ* 2 MG/ML 1 ML SYRINGE (TWO MG - NEW SYRINGE VERSION) IV PRN (15:10)
[2018-05-24] MEDS ORDERED: Nitroglycerin TAB 0.4 MG* 0.4 MG TAB SL PRN (15:15)
[2018-05-24] MEDS ORDERED: Ondansetron INJ* 2 MG/ML VIAL ONE (15:31)
[2018-05-24] MEDS ORDERED: fentaNYL* 50 MCG/ML 2 ML VIAL (100 MCG VIAL) IV PRN (15:34)
[2018-05-24] MEDS ORDERED: Naloxone* 0.4 MG/ML 1 ML VIAL IV PRN (15:34)
--- NOTE | 2018-05-24 15:52 | RAD ---
INDICATION: Right hip replacement COMPARISON: None TECHNIQUE: A portable crosstable lateral image of the pelvis is obtained for operative planning purposes FINDINGS: This single view shows placement of the acetabular cup and the femoral stem for sizing.. IMPRESSION: OPERATIVE CONTROL FILMS ARE SUBMITTED
--- NOTE | 2018-05-24 16:08 | RAD ---
INDICATION: Right hip arthroplasty COMPARISON: Right hip May 24, 2018 TECHNIQUE: An AP view of the pelvis and AP views of the hip in neutral and abducted position were obtained FINDINGS: There is completion of right hip arthroplasty. The prosthesis appears well seated. There are skin changes compatible with the recent surgery. IMPRESSION: RIGHT HIP ARTHROPLASTY.
--- NOTE | 2018-05-24 16:16 | RAD ---
INDICATION: Right total hip replacement COMPARISON: Right hip same date TECHNIQUE: A single AP portable view of the pelvis is submitted. FINDINGS: There is completion right hip arthroplasty. The prosthesis appears normally seated. There are soft tissue changes compatible with the recent surgery. IMPRESSION: POSTOPERATIVE RIGHT HIP ARTHROPLASTY.
--- NOTE | 2018-05-24 16:28 | CONSULT ---
Subjective Date of Service: 05/24/18 Interval History: Allergies Allergy/AdvReac Type Severity Reaction Status Date / Time scallops Allergy Vomiting Uncoded 05/24/18 11:36 Home Medications Medication Instructions Recorded Confirmed Type Gluc Roberson/Chondro Roberson A/Vit C/Mn 1 tab PO DAILY 01/08/14 05/24/18 History [Glucosamine Chondroitin Tab] Aspirin 81 mg CHEW TAB* 81 mg PO DAILY 01/11/14 05/24/18 History Nitroglycerin TAB 0.4 MG* 0.4 mg SL Q5M PRN 01/11/14 05/24/18 History amLODIPine TAB* [Norvasc 5 mg TAB*] 2.5 mg PO QPM 01/11/14 05/24/18 History Cholecalciferol (Vitamin D3) 1,000 units PO DAILY 05/17/17 05/24/18 History [Vitamin D] Co Q-10 1 cap PO DAILY 05/17/17 05/24/18 History Alendronate Sodium 70 mg PO WEEKLY 05/09/18 05/24/18 History Atorvastatin* [Lipitor 20 MG*] 20 mg PO QPM 05/09/18 05/24/18 History Glucosamine/D3/Boswellia Laquita 1 tab PO DAILY 05/09/18 05/24/18 History [Osteo Bi-Flex Tablet] Lisinopril 5 mg PO BID 05/09/18 05/24/18 History Metoprolol Succinate 100 mg PO BID 05/09/18 05/24/18 History The patient was admitted this AM for elective R GITA. She has had a prior L TKA. She was not using any assistive device at home but was very limited in her walking. Family History: Findings - unremarkable Social History: Findings - Never smoked. SDM is her daughter Oma and daughter Odilia. Past Medical History: Findings - L GITA, [place] with LAD stent 2013, BL cataract sx, cervical disc sx. Review of Systems - Measurements Intake and Output: Intake and Output Last 24 Hours 05/22/18 05/23/18 05/24/18 05/25/18 06:59 06:59 06:59 06:59 Intake Total 1500 Output Total 350 Balance 1150 Weight 147 lb Intake: IV Fluids 1500 lr 1500 Output: Delgado 150 Estimated Blood Loss 200 - Review of Systems Constitutional Symptoms: Negative: Weight Gain, Weight Loss, Weakness, Fatigue, Fever, Night Sweats, Unexplained Falls, Other Dermatology: Positive: Normal HEENT: Positive: Normal Eyes: Positive: Normal Thyroid: Positive: Normal Pulmonary: Positive: Cough - thought to be related to lisinopril Cardiology: Positive: Normal Gastroenterology: Positive: Normal Genital - Urinary: Positive: Normal Musculoskeletal: Positive: Joint Pain Endocrinology: Positive: Normal Hematologic/Lymphatic: Negative: Anemia, Easy Brusing, Hx Leukemia, Hx Lymphoma, Use of Anticoagulant, Use of Antiplatelet Drugs, Other Neurology: Positive: Normal Psychiatry: Positive: Normal Allergic/Immunologic: Negative: Hx Anaphylaxis, Hx Angioedema, Hx Environmental, Hx Seasonal, Athsma, Hx HIV, Immunocompromise, Swollen Glands LymphNodes, Other Objective Active Medications: Acetaminophen (Tylenol Tab*) 975 mg PO Q8H DANIKA Amlodipine Besylate (Norvasc Tab*) 2.5 mg PO QPM DANIKA Atorvastatin Calcium (Lipitor*) 20 mg PO QPM DANIKA Bisacodyl (Dulcolax Supp*) 10 mg [place] DAILY PRN PRN Reason: constipation Citric Acid/Sodium Citrate (Bicitra*) 15 ml PO ONCE ONE Stop: 05/24/18 06:01 Last Admin: 05/24/18 11:53 Dose: 15 ml Cyclobenzaprine HCl (Flexeril Tab*) 10 mg PO TID PRN PRN Reason: SPASMS Diphenhydramine HCl (Benadryl Iv*) 12.5 mg IV Q6H PRN PRN Reason: PRURITIS Docusate Sodium (Colace Cap*) 100 mg PO BID [facility] Enoxaparin Sodium (Lovenox(*)) 30 mg SUBCUT Q24H [facility] Fentanyl Citrate (Fentanyl*) 25 mcg IV Q5M PRN PRN Reason: PAIN - MODERATE Lactated Ringer's (Lactated Ringers 1000 Ml Bag*) 1,000 mls @ 125 mls/hr IV PER RATE [facility] Last Admin: 05/24/18 11:53 Dose: 125 mls/hr Cefazolin Sodium/Dextrose (Kefzol 1 Gm In Dextrose Duplex (*)) 1 gm in 50 mls @ 200 mls/hr IVPB Q8H [facility] Stop: 05/25/18 08:14 Lactated Ringer's (Lactated Ringers 1000 Ml Bag*) 1,000 mls @ 100 mls/hr IV PER RATE DANIKA Lactulose (Lactulose*) 30 ml PO Q6H PRN PRN Reason: constipation Lidocaine/Sodium Bicarbonate (Buffered Lidocaine 0.9% Syrin*) 0.2 ml INTRADERM ONCE ONE Stop: 05/23/18 09:55 Last Admin: 05/24/18 11:53 Dose: Not Given Lisinopril (Prinivil Tab*) 5 mg PO BID DANIKA Magnesium Hydroxide (Milk Of Magnesia Liq*) 30 ml PO BID DANIKA Magnesium Hydroxide (Milk Of Magnesia Liq*) 30 ml PO Q6H PRN PRN Reason: constipation Metoprolol Succinate (Toprol Xl Tab*) 100 mg PO BID DANIKA Morphine Sulfate (Morphine Inj (Syringe)) 2 mg IV Q2H PRN PRN Reason: PAIN Naloxone HCl (Narcan*) 0.08 mg IV Q2M PRN PRN Reason: severe induced resp depression Nitroglycerin (Nitroglycerin Tab 0.4 Mg*) 0.4 mg SL Q5M PRN PRN Reason: PAIN Ondansetron HCl (Zofran Inj*) 4 mg IV Q6H PRN PRN Reason: nausea Ondansetron HCl (Zofran Tab*) 4 mg PO Q6H PRN PRN Reason: NAUSEA Oxycodone HCl (Roxycodone Tab*) 10 mg PO Q4H PRN PRN Reason: SEVERE PAIN Oxycodone/Acetaminophen (Percocet 5/325 Tab*) 1 tab PO Q4H PRN PRN Reason: PAIN Oxycodone/Acetaminophen (Percocet 5/325 Tab*) 2 tab PO Q4H PRN PRN Reason: PAIN Polyethylene Glycol/Electrolytes (Miralax*) 17 gm PO DAILY PRN PRN Reason: Constipation Tramadol HCl (Ultram*) 50 mg PO Q6H PRN PRN Reason: PAIN Warfarin Sodium (Coumadin Tab(*)) 6 mg PO ONCE@1700 ONE; Protocol Stop: 05/24/18 17:01 Vital Signs - 8 hr 05/24/18 05/24/18 05/24/18 11:46 15:12 15:13 Temperature 97.3 F 97.0 F Pulse Rate 60 65 61 Respiratory 16 16 15 Rate Blood Pressure 158/81 122/70 (mmHg) O2 Sat by Pulse 96 95 100 Oximetry 08/05/24/18 05/24/18 15:16 15:20 15:26 Temperature Pulse Rate 60 63 59 Respiratory 12 19 15 Rate Blood Pressure 122/65 132/84 138/75 (mmHg) O2 Sat by Pulse 100 100 100 Oximetry 05/24/18 05/24/18 05/24/18 15:31 15:36 15:51 Temperature Pulse Rate 61 59 61 Respiratory 15 10 14 Rate Blood Pressure 143/78 97/69 136/90 (mmHg) O2 Sat by Pulse 100 98 Oximetry 05/24/18 05/24/18 05/24/18 15:55 16:00 16:01 Temperature 99.5 F Pulse Rate 62 63 65 Respiratory 16 20 14 Rate Blood Pressure 149/77 99/80 (mmHg) O2 Sat by Pulse 99 100 98 Oximetry Oxygen Devices in Use Now: None Appearance: Alert, supine on PACU stretcher. In good spirits. C/O being chilly , under Bear Hugger, shivering some. Eyes: No Scleral Icterus Neck: NL Appearance and Movements; NL JVP, No Thyroid Enlargement, Masses Respiratory: Symmetrical Chest Expansion and Respiratory Effort, Clear to Auscultation, Clear to Percussion Cardiovascular: NL Sounds; No Murmurs; No JVD, RRR, No Edema, - Abdominal: NL Sounds; No Tenderness; No Distention, No Hepatosplenomegaly, - Extremities: No Edema, No Clubbing, Cyanosis, - Skin: No Rash or Ulcers, No Nodules or Sclerosis, - Neurological: Alert and Oriented x 3, NL Sensation Assessment/Plan - Billing Plan By Medical Problem: 1. HTN I will decrease her lisinopril to 5 mg daily as she had spinal anesthesia and will be very limited in her activity he next 48 hrs. If needed the dose can be increased to 5 mg bid. She is already aware the lisinopril is likely causing her chronic cough and I told her to discuss this with her PCP. 2. CAD. No cardiac symptoms's since her stent. Continue statin, metoprolol. I would re-start her ASA as soon as permissible post-op. #. R GITA. Management per Dr. Peguero. Labs pending 05/25.
[2018-05-24] MEDS ORDERED: Warfarin TAB(*) 6 MG PO ONE (17:00)
[2018-05-24] MEDS: Acetaminophen TAB* 325 MG PO SCH ×2 (17:13→23:16)
[2018-05-24] MEDS: Atorvastatin* 20 MG TAB PO SCH (17:14)
[2018-05-24] MEDS: amLODIPine TAB* 5 MG PO SCH (17:14)
[2018-05-24] MEDS: Magnesium Hydroxide LIQ* 30 ML UDC PO SCH (20:48)
[2018-05-24] MEDS: Docusate CAP* 100 MG PO SCH (20:48)
[2018-05-24] MEDS ORDERED: Lisinopril TAB* 5 MG PO SCH (21:00)
[2018-05-24] MEDS: oxyCODONE TAB* 5 MG TAB PO PRN (21:01)
[2018-05-24] MEDS: ceFAZolin 1 GM in Dextrose (*) 1 GM/50 ML BAG IVPB SCH (21:02)
[2018-05-24] MEDS: Metoprolol Succinate XL TAB* 100 MG PO SCH (21:36)
[2018-05-24] MEDS: oxyCODONE/Acetamin 5/325 MG* TAB PO PRN (23:15)
[2018-05-25] MEDS: oxyCODONE/Acetamin 5/325 MG* TAB PO PRN (03:09)
[2018-05-25] MEDS: ceFAZolin 1 GM in Dextrose (*) 1 GM/50 ML BAG IVPB SCH ×2 (05:42→12:16)
[2018-05-25 06:23] LABS: Hematocrit 34 % (35-47); Hemoglobin 11.6 g/dl (12.0-16.0); Mean Platelet Volume 6.8 um3 (7.4-10.4); Platelet Count 190 10^3/ul (150-450)
[2018-05-25 06:27] LABS: INR 1.14 (0.77-1.02)
[2018-05-25] MEDS: oxyCODONE TAB* 5 MG TAB PO PRN (06:28)
[2018-05-25 06:38] LABS: EGFR Non-African American 79.3 (>60)
[2018-05-25] MEDS: Acetaminophen TAB* 325 MG PO SCH ×4 (08:32→23:15)
[2018-05-25] MEDS: Magnesium Hydroxide LIQ* 30 ML UDC PO SCH ×2 (08:32→22:11)
--- NOTE | 2018-05-25 08:41 | PN ---
Progress Note - Progress Note Date of Service: 05/25/18 SOAP: Subjective: POD #1 Right GITA. Doing ok, c/o nausea this morning. Pain controlled. Denies CP/ SOB, calf pain, f/c. Objective: Vitals: Temp Pulse Resp BP Pulse Ox 98.2 F 68 18 110/40 95 05/25/18 07:21 05/25/18 07:21 05/25/18 08:32 05/25/18 07:21 05/25/18 07:21 Gen: A&O x3, NAD at rest sitting in chair Right hip: Dressing C/D/I, thigh soft/NT. +f/e at knee, ankle and MTPs. Sensation intact, 2+ DP. Labs: Laboratory Last Values Hgb 11.6 g/dl (12.0-16.0) L 05/25/18 05:41 Hct 34 % (35-47) L 05/25/18 05:41 Plt Count 190 10^3/ul (150-450) 05/25/18 05:41 MPV 6.8 um3 (7.4-10.4) L 05/25/18 05:41 INR (Anticoag Therapy) 1.14 (0.77-1.02) H 05/25/18 05:41 Sodium 138 mmol/L (135-145) 05/25/18 05:41 Potassium 3.7 mmol/L (3.5-5.0) 05/25/18 05:41 Chloride 107 mmol/L (101-111) 05/25/18 05:41 Carbon Dioxide 28 mmol/L (22-32) 05/25/18 05:41 Anion Gap 3 mmol/L (2-11) 05/25/18 05:41 BUN 11 mg/dL (6-24) 05/25/18 05:41 Creatinine 0.70 mg/dL (0.51-0.95) 05/25/18 05:41 Est GFR ( Amer) 96.0 (>60) 05/25/18 05:41 Est GFR (Non-Af Amer) 79.3 (>60) 05/25/18 05:41 BUN/Creatinine Ratio 15.7 (8-20) 05/25/18 05:41 Glucose 149 mg/dL (70-100) H 05/25/18 05:41 Calcium 8.2 mg/dL (8.6-10.3) L 05/25/18 05:41 Blood Type O Positive 05/24/18 11:40 Antibody Screen Negative 05/24/18 11:40 Assessment: POD #1 Right GITA Plan: PT/OT with posterior hip precautions Scopolamine patch for nausea, limit narcotics INR 1.14, Coumadin 6mg tonight Possible d/c tomorrow
[2018-05-25] MEDS ORDERED: Acetaminophen TAB* 325 MG PO PRN (08:42)
[2018-05-25] MEDS: Metoprolol Succinate XL TAB* 100 MG PO SCH ×2 (08:51→22:12)
[2018-05-25] MEDS: Docusate CAP* 100 MG PO SCH ×2 (08:51→22:12)
[2018-05-25] MEDS: Lisinopril TAB* 5 MG PO SCH (08:52)
[2018-05-25] MEDS ORDERED: Scopolamine 1.5 mg* PATCH TRANSDERM SCH (09:00)
[2018-05-25] MEDS ORDERED: Enoxaparin(*) 30 MG/0.3 ML SYR SUBCUT SCH (12:00)
--- NOTE | 2018-05-25 16:34 | OP ---
OPERATIVE REPORT: DATE OF OPERATION: 05/24/18 DATE OF : 32 ATTENDING SURGEON: Glenna Peguero MD CROP OR GRAIN FARMWORKER: ALEJO Diana Ms. helped throughout the procedure with preparation of the leg, wound retraction, manipulat ion of the hip, and wound closure. ANESTHESIOLOGIST: Dr. Pedersen ANESTHESIA: Spinal. PRE-OP DIAGNOSIS: Severe end-stage degenerative osteoarthritis of the right hip joint. POST-OP DIAGNOSIS: Severe end-stage degenerative osteoarthritis of the right hip joint. OPERATIVE PROCEDURE: Right total hip arthroplasty. BRIEF HISTORY/INDICATIONS: Ms. Kearney is an 87-year-old female with years of increasingly severe r ight hip pain. She failed conservative treatment with physical therapy, ambulatory assistive device, anti-inflammatories. Radiographs showed [id number] arthritis. Due to continued pain and decreased quality of life, the patient elected to undergo right total hip arthroplasty. Informed consent was obtained from the patient. She understood the risks of surgery included but were not limited to blee ding, infection, damage to nearby structures, continued pain, need for further surgery, intraoperativ e fracture, nerve palsy, hardware failure or loosening, dislocation, leg length discrepancy, stroke, heart attack, blood clot, and . She wished to proceed. COMPLICATIONS: None. ESTIMATED BLOOD LOSS: 300 cc. SPECIMENS: Bone, femoral head, and acetabular reaming sent to Pathology. HARDWARE USED: This is [place] uncemented total hip arthroplasty hardware. For the cup, a Tritanium cluster hole shell 52D, a single 20-mm screws used. For the liner, a Trident X3 0-degree polyethyle ne insert, 36D. For the stem, an Accolade TMZF size 2 with a 132-degree neck and for the head, a Bio lox delta ceramic V40 femoral head 36 +0. INTRAOPERATIVE FINDINGS: Intraoperatively, the patient was noted to have significant osteopenia. Sh shakila had full thickness, loss of cartilage along the femoral head and acetabulum. She had significant a nterior and superior osteophyte formation. DESCRIPTION OF PROCEDURE: Ms. Kearney was identified in the preanesthesia unit. Her right lower ext remity was marked as the correct operative side. Informed consent was signed and placed in the chart . The patient was taken to the operating room and placed under spinal anesthesia. A Delgado catheter was placed. The patient was placed in the left lateral decubitus position on the peg board. All bon y prominences were well padded. Right lower extremity was prepped and draped in the usual sterile fa shion. Preop time-out was made to correctly identify the patient's side and site. Appropriate perio perative antibiotics were given within 1 hour of incision. A 10-cm posterior hip incision was made with the 10 blade and carried down to the lateral fascial lay er. Lateral fascial layer was incised in line of the skin incision. A Charnley retractor was placed . The piriformis and conjoint tendons were identified and elevated off the posterolateral femur usin g the electrocautery. These were tagged with #5 Ethibond. Next, electrocautery was used to make a st andard posterolateral capsular flap. This was also tagged with #5 Ethibond. The hip was carefully d islocated. Lesser troch to center of the femoral head measured 52 mm. Oscillating saw was used to m anastacia the appropriate femoral neck cut and the femoral head was removed. The femur was retracted anteriorly. After appropriate placement of retractors, the acetabulum was we ll visualized. A long-handled knife was used to sharply remove any remaining labrum from the acetabu lar rim. There is extensive superior osteophyte formation, which was loose and carefully removed wit h rongeur. The acetabulum was sequentially reamed up to a size 51. A 51 reamer obtained a bleeding subchondral bone bed. A 51 trial head good fit with appropriate anteversion and abduction angle. Fi nal implant chosen was a Tritanium cluster hole shell 52D. This was impacted into the acetabular wit hout difficulty. Stability of the cup was noted to be excellent with appropriate anteversion and abd uction angle. Anterior osteophytes were carefully removed using a rongeur. A single 20-mm screw was placed in the superior and posterior quadrant for extra stability. A Trident X3 0-degree polyethylen e insert 36D was chosen. This was impacted into the acetabulum. Stability of the liner was checked and rechecked and noted to be stable. Next, attention was turned to preparation of the proximal canal. A canal finder was used to enter th e proximal femur. The femur was sequentially broached up to a size 2. Size 2 broach had excellent f it with appropriate anteversion. A 132- degree neck trial with a 36 +0 head trial was chosen. Lesser troch to center of the femoral head measured 53 mm. The hip was reduced and taken through range of motion. The hip was stable in all positions. Appropriate soft tissue tension and leg lengths were o bserved. The hip was carefully dislocated. All trials were removed. Final implant chosen was an Ac colade TMZF size 2 with a 132-degree neck. This was impacted into the femoral canal without difficult y. There was appropriate stability and anteversion. A 36+ 0 Biolox delta ceramic V40 femoral head wa s chosen and impacted down to the femoral neck. The lesser troch to center of the femoral head measu red 52 mm. The hip was reduced and taken through a range of motion. The hip was stable in all posit ions. Soft tissue tension and leg lengths were appropriate. The wound was copiously irrigated with sterile saline. Previously tagged tendons and capsule were reapproximated to the posterolateral femu r through 2 trochanteric drill holes. The lateral fascial layer was closed using interrupted #1 Vicr yls. The rest of the incision was closed in a layered fashion using 0 and 2- 0 Vicryls. Skin was cl osed using running 3-0 Monocryl suture with Dermabond. Sterile Adaptic, 4x4s, and paper tape were use d to cover the incision. The patient's anesthesia was reversed without difficulty. She was taken to the PACU in stable condition. Intended weightbearing will be weightbearing as tolerated. Intended D VT prophylaxis will be Coumadin with a Lovenox bridge. [id number]/[facility] #: [id number]
--- NOTE | 2018-05-25 16:36 | PN ---
Subjective Date of Service: 05/25/18 Interval History: Mrs. Kearney is doing very well. Just finished her PT and feels a little R hip pain. Reports nausea and vomiting this AM after taking Percocet, but better now. Denies chest pain or SOB. Delgado catheter removed this AM, has not voided yet. Family History: Unchanged from Admission Social History: Unchanged from Admission Past Medical History: Unchanged from Admission Objective Active Medications: Acetaminophen (Tylenol Tab*) 975 mg PO Q8H COUNTS INCLUDE 234 BEDS AT THE [facility] Last Admin: 05/25/18 12:16 Dose: 975 mg Amlodipine Besylate (Norvasc Tab*) 2.5 mg PO QPM COUNTS INCLUDE 234 BEDS AT THE [facility] Last Admin: 05/24/18 17:14 Dose: 2.5 mg Atorvastatin Calcium (Lipitor*) 20 mg PO QPM COUNTS INCLUDE 234 BEDS AT THE [facility] Last Admin: 05/24/18 17:14 Dose: 20 mg Bisacodyl (Dulcolax Supp*) 10 mg [facility] DAILY PRN PRN Reason: constipation Cyclobenzaprine HCl (Flexeril Tab*) 10 mg PO TID PRN PRN Reason: SPASMS Docusate Sodium (Colace Cap*) 100 mg PO BID COUNTS INCLUDE 234 BEDS AT THE [facility] Last Admin: 05/25/18 08:51 Dose: 100 mg Enoxaparin Sodium (Lovenox(*)) 30 mg SUBCUT Q24H COUNTS INCLUDE 234 BEDS AT THE [facility] Last Admin: 05/25/18 12:16 Dose: 30 mg Lactated Ringer's (Lactated Ringers 1000 Ml Bag*) 1,000 mls @ 125 mls/hr IV PER RATE COUNTS INCLUDE 234 BEDS AT THE [facility] Last Admin: 05/24/18 11:53 Dose: 125 mls/hr Lactated Ringer's (Lactated Ringers 1000 Ml Bag*) 1,000 mls @ 100 mls/hr IV PER RATE COUNTS INCLUDE 234 BEDS AT THE [facility] Last Admin: 05/25/18 03:10 Dose: 100 mls/hr Lactulose (Lactulose*) 30 ml PO Q6H PRN PRN Reason: constipation Lisinopril (Prinivil Tab*) 5 mg PO DAILY COUNTS INCLUDE 234 BEDS AT THE [facility] Last Admin: 05/25/18 08:52 Dose: 5 mg Magnesium Hydroxide (Milk Of Magnesia Liq*) 30 ml PO BID COUNTS INCLUDE 234 BEDS AT THE [facility] Last Admin: 05/25/18 08:32 Dose: Not Given Magnesium Hydroxide (Milk Of Magnesia Liq*) 30 ml PO Q6H PRN PRN Reason: constipation Metoprolol Succinate (Toprol Xl Tab*) 100 mg PO BID COUNTS INCLUDE 234 BEDS AT THE [facility] Last Admin: 05/25/18 08:51 Dose: 100 mg Morphine Sulfate (Morphine Inj ((Syringe))*) 2 mg IV Q2H PRN PRN Reason: PAIN Nitroglycerin (Nitroglycerin Tab 0.4 Mg*) 0.4 mg SL Q5M PRN PRN Reason: PAIN Ondansetron HCl (Zofran Inj*) 4 mg IV Q6H PRN PRN Reason: nausea Last Admin: 05/25/18 12:40 Dose: 4 mg Ondansetron HCl (Zofran Tab*) 4 mg PO Q6H PRN PRN Reason: NAUSEA Last Admin: 05/25/18 06:33 Dose: 4 mg Oxycodone HCl (Roxycodone Tab*) 10 mg PO Q4H PRN PRN Reason: SEVERE PAIN Last Admin: 05/25/18 06:28 Dose: 10 mg Oxycodone/Acetaminophen (Percocet 5/325 Tab*) 1 tab PO Q4H PRN PRN Reason: PAIN Last Admin: 05/24/18 17:09 Dose: 1 tab Oxycodone/Acetaminophen (Percocet 5/325 Tab*) 2 tab PO Q4H PRN PRN Reason: PAIN Last Admin: 05/25/18 03:09 Dose: 2 tab Pharmacy Profile Note (Coumadin Daily Reminder*) 1 note FOLLOW UP 1700 COUNTS INCLUDE 234 BEDS AT THE [facility] Polyethylene Glycol/Electrolytes (Miralax*) 17 gm PO DAILY PRN PRN Reason: Constipation Scopolamine (Transderm-Scop 1.5 Mg Patch*) 1 patch TRANSDERM Q72H COUNTS INCLUDE 234 BEDS AT THE [facility] Last Admin: 05/25/18 08:54 Dose: 1 patch Tramadol HCl (Ultram*) 50 mg PO Q6H PRN PRN Reason: PAIN Warfarin Sodium (Coumadin Tab(*)) 6 mg PO ONCE@1700 ONE; Protocol Stop: 05/25/18 17:01 Vital Signs - 8 hr 05/25/18 05/25/18 05/25/18 08:32 11:11 15:27 Temperature 98.2 F Pulse Rate 69 Respiratory 18 16 Rate Blood Pressure 126/51 95/45 (mmHg) O2 Sat by Pulse 95 Oximetry Oxygen Devices in Use Now: None Appearance: Appears comfortable and in NAD Eyes: No Scleral Icterus, PERRLA Ears/Nose/Mouth/Throat: Clear Oropharnyx, Mucous Membranes Moist Neck: NL Appearance and Movements; NL JVP, Trachea Midline Respiratory: Symmetrical Chest Expansion and Respiratory Effort, Clear to Auscultation Cardiovascular: NL Sounds; No Murmurs; No JVD, RRR Abdominal: NL Sounds; No Tenderness; No Distention Extremities: No Edema Neurological: Alert and Oriented x 3 Nutrition: Taking PO's Result Diagrams: 05/25/18 05:41 05/25/18 05:41 Additional Lab and Data: . Microbiology and Other Data: . Diagnostic Imaging: Patient Name: MARYLOU KEARNEY Medical Record#: [id number] Ordering Physician: Nereida DHILLON Acct.#: [id number] : 1930 Age: 87 Sex: F Location: AM ADMITS Exam Date: 05/24/181509 ADM Status: ADM IN Order Information: HIP RIGHT POST OPERATIVE 2 VW Accession Number: [id number] CPT: 54405 INDICATION: Right hip arthroplasty COMPARISON: Right hip May 24, 2018 TECHNIQUE: An AP view of the pelvis and AP views of the hip in neutral and abducted position were obtained FINDINGS: There is completion of right hip arthroplasty. The prosthesis appears well seated. There are skin changes compatible with the recent surgery. IMPRESSION: RIGHT HIP ARTHROPLASTY. <Electronically signed by Moris Byrd MD in OV> 05/24/18 1605 EKG Data: . Assess/Plan/Problems-Billing Plan By Medical Problem: 1. HTN I will decrease her lisinopril to 5 mg daily as she had spinal anesthesia and will be very limited in her activity he next 48 hrs. If needed the dose can be increased to 5 mg bid. She is already aware the lisinopril is likely causing her chronic cough and I told her to discuss this with her PCP. 2. CAD. No cardiac symptoms's since her stent. Continue statin, metoprolol. I would re-start her ASA as soon as permissible post-op. #. R GITA. Management per Dr. Peguero. Labs pending 05/25. - Patient Problems (1) Status post right hip replacement Current Visit: Yes Status: Acute Comment: - Management per ortho - Continue PT/OT - Pain well controlled - Likely home in AM (2) Hypertension Current Visit: Yes Status: Acute Comment: - Continue Lisinopril 5mg daily, may resume home dose on BID basis upon discharge - BP well controlled at this point (3) CAD (coronary artery disease) Current Visit: Yes Status: Acute Comment: - Continue statin and metoprolol - Hold ASA for immediate post-op period, chiquis resume once OK with ortho - stable, no c/o of chest pain (4) Hyperlipidemia Current Visit: Yes Status: Acute Comment: - Continue home statin (5) DVT prophylaxis Current Visit: Yes Status: Acute Comment: - Lovenox bridging to Coumadin per ortho (6) Full code status Current Visit: Yes Status: Acute Status and Disposition: Inpatient. Anticipate discharge when medically stable.
[2018-05-25] MEDS ORDERED: Warfarin TAB(*) 6 MG PO ONE (17:00)
[2018-05-25] MEDS: amLODIPine TAB* 5 MG PO SCH (17:53)
[2018-05-25] MEDS: Atorvastatin* 20 MG TAB PO SCH (17:54)
[2018-05-26] MEDS: Acetaminophen TAB* 325 MG PO SCH ×2 (00:42→08:01)
[2018-05-26 06:04] LABS: Hematocrit 30 % (35-47); Hemoglobin 10.5 g/dl (12.0-16.0); Mean Platelet Volume 7.1 um3 (7.4-10.4); Platelet Count 163 10^3/ul (150-450)
[2018-05-26 06:14] LABS: INR 2.87 (0.77-1.02)
[2018-05-26] MEDS: Lisinopril TAB* 5 MG PO SCH (08:00)
[2018-05-26] MEDS: Magnesium Hydroxide LIQ* 30 ML UDC PO SCH (08:01)
[2018-05-26] MEDS: Metoprolol Succinate XL TAB* 100 MG PO SCH (08:01)
[2018-05-26] MEDS: Docusate CAP* 100 MG PO SCH (08:01)
--- NOTE | 2018-05-26 08:11 | PN ---
Progress Note - Progress Note Date of Service: 05/26/18 SOAP: Subjective: POD #2 Right GITA. Doing well, pain controlled with Tylenol. Denies CP/SOB, calf pain, f/c. Nausea resolved. Objective: Vitals: Temp Pulse Resp BP Pulse Ox 98.0 F 74 18 119/50 96 05/26/18 07:33 05/26/18 07:33 05/26/18 07:33 05/26/18 07:33 05/26/18 07:33 Gen: A&Ox3, NAD at rest sitting in bed Right hip: Incision C/D/I, mild surrounding ecchymosis, no erythema. Thigh and calf soft, NT. +f/e at knee, ankle and MTPs. N/V intact Labs: Laboratory Results - last 24 hr 18 05/26/18 05:22 05:22 Hgb 10.5 L Hct 30 L Plt Count 163 MPV 7.1 L INR (Anticoag Therapy) 2.87 H Assessment: POD #2 Right GITA, doing well Plan: D/C home today INR 2.87, hold coumadin through , redraw Monday 05/28 Cont PT exercises at home, posterior hip precautions F/u with Dr. Peguero 10-14 days
[2018-05-26 11:47] VITALS: BP 120/43
--- NOTE | 2018-05-26 12:14 | DS ---
AMENDED REPORT NOW INCLUDES COSIGNER DESIGNATION - ESIGNED BEFORE ADJUSTMENT DISCHARGE SUMMARY: DATE OF ADMISSION: 05/24/18 DATE OF DISCHARGE: 05/26/18. 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 SECONDARY DIAGNOSES: 1. Hypertension. 2. High cholesterol. 3. History of myocardial infarction. HISTORY OF PRESENT ILLNESS: Ms. Kearney is a 87-year-old female, who has had ongoing right hip pain, she failed conservative management and elected to proceed with the right total hip arthroplasty. HOSPITAL COURSE: On 05/24/18, the patient was admitted to [facility] and underwent a successful right total hip arthroplasty by Dr. Peguero. She recovered briefly in the postanesthesia care unit and was transferred to the short- stay surgical unit in stable condition. Pain was controlled with oral and IV pain medication. On postop day 1, the patient was found to have significant nausea which was thought to be secondary to narcotic pain medication. This was held and she was given Tylenol with good relief. She was also given a scopolamine patch which alleviated the nausea significantly. She was able to participate in the evening with physical therapy and ambulated short distance with the use of a rolling walker. She had mild acute blood loss anemia with an H and H of 11.6 and 34. INR was 1.14 with 6 mg of Coumadin previously. On postop day #2, the patient was feeling much better. Pain was still controlled with oral Tylenol only. H and H of 10.5 and 30 and INR increased to 2.87 with 6 mg of Coumadin previously. The patient was found stable for discharge home at this point. DISCHARGE CONDITION: Stable. DISCHARGE MEDICATIONS: 1. The patient will use Tylenol 650 mg p.o. q.6 hours p.r.n. pain. 2. The patient will have Coumadin; however, she will hold this on 05/26/18 and 05/27/18. She will have a redraw of her INR on 05/28/18. She will resume her home medication of: 1. Norvasc 2.5 mg p.o. daily. 2. Lipitor 20 mg p.o. daily. 3. Lisinopril 5 mg p.o. daily. 4. Metoprolol succinate 100 mg p.o. b.i.d. 5. Nitroglycerin 0.4 mg sublingual q.5 minutes p.r.n. 6. Alendronate sodium 70 mg p.o. weekly. DISCHARGE INSTRUCTIONS: The patient will be weightbearing as tolerated with the use of a rolling walker. She was reminded of her posterior hip precautions. She will keep her wound clean and dry until postop day #4, at that time, she may shower normally and wash with soap and water and apply a dry dressing as needed. She is understanding not to submerge the incision in a bathtub, hot tub or swimming pool. She will follow up in the office in 10 to 14 days post-operatively with Dr. Peguero. She will call the office with any problems or concerns. She is understanding to go directly to the emergency room with any chest pain, shortness of breath, fever greater than 101.5, calf pain or swelling. ALEJO ARTEAGA [id number]/[facility] #: [id number] RONNIE
== END 2018-05-26 12:35 | disposition home health service (06) | DRG 470 ==
LOC: AA 10:32 → SSU 15:10
PROVIDERS: ADMIT Orthopaedic Surgery Adult Reconstructive Orthopaedic Surgery; ATTEND Orthopaedic Surgery Adult Reconstructive Orthopaedic Surgery
PROC: 0SR904A Replacement of Right Hip Joint with Ceramic on Polyethylene Synthetic Substitute, Uncemented, Open Approach (ICD-10-PCS; principal; 2018-05-24 13:15)
DX: M16.11 Unilateral primary osteoarthritis, right hip (principal); I10 Essential (primary) hypertension; E78.00 Pure hypercholesterolemia, unspecified; Z96.642 Presence of left artificial hip joint; H91.90 Unspecified hearing loss, unspecified ear; I25.10 Atherosclerotic heart disease of native coronary artery without angina pectoris; M81.0 Age-related osteoporosis without current pathological fracture; I25.9 Chronic ischemic heart disease, unspecified; E78.2 Mixed hyperlipidemia; M93.90 Osteochondropathy, unspecified of unspecified site; M85.831 Other specified disorders of bone density and structure, right forearm; M85.80 Other specified disorders of bone density and structure, unspecified site; M25.751 Osteophyte, right hip; I25.2 Old myocardial infarction; Z82.49 Family history of ischemic heart disease and other diseases of the circulatory system; Z95.5 Presence of coronary angioplasty implant and graft; Z87.440 Personal history of urinary (tract) infections; Z98.42 Cataract extraction status, left eye; Z98.41 Cataract extraction status, right eye; Z72.89 Other problems related to lifestyle; D62 Acute posthemorrhagic anemia; R11.2 Nausea with vomiting, unspecified; T40.605A Adverse effect of unspecified narcotics, initial encounter
CPT/HCPCS: 36415; 72170; 80048; 85014; 85018; 85049; 85610; 86850; 86900; 86901; A9270-GY; G8978-GP-CJ; G8978-GP-CK; G8979-GP-CI; G8980-GP-CJ; G8987-GO-CK; G8988-GO-CI; G8989-GO-CJ; J0690; J1650; J2250; J2405; J2704

== ENCOUNTER 2018-09-27 16:09 | Emergency (ER) | payer MEDICARE, OTHER ==
--- OUTSIDE RECORDS SUMMARY | 2018-09-27 16:15 | XMS REPORT | Continuity of Care Document ---
:1930 External Reference #:[id number] Author Name Mohini Granados Care Team Providers Name Role Phone Aaron Gibbons III, MD Primary Care Physician Unavailable Payers Type Date Identification Numbers Payment Provider Subscriber Effective: Policy Number: [id number] Medicare Alpa Kearney 1996 PayID: [id number] [address] [place] [address] Policy Number: [id number] For Life Robertjuli Kearney PayID: [id number] [address] [place] [address] Advance Directives Type Date Description Status Comment [...] Onset: 01/16/2014 Coronary arteriosclerosis Sebastián Barker M.D., [facility], Active [facility] Onset: 01/16/2014 Mixed hyperlipidemia Sebastián Barker M.D., [facility], Active [facility] Onset: 03/04/2014 Chronic ischemic heart disease Sebastián Barker M.D., [facility], Active [facility] Onset: 06/15/2018 Prosthetic arthroplasty of the hip Glenna Peguero M.D. 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 Tobacco Use Start: Unknown Never Smoked Cigarettes ETOH Use Denies alcohol use Tobacco Use Start: Unknown Patient has never smoked Recreational Drug Use Denies Drug Use Smoking Status Reviewed: 09/03/18 Patient has never smoked Exercise Type/Frequency Exercises rarely Allergies, Adverse Reactions, Alerts Description No Known Drug Allergies Medications Medication Date Status Form Strength Qnty SIG Indications Ordering Provider Atorvastatin 04/20 Active Tablets 20mg 90tab take 1 Aaron Caldera Calcium s tablet at Edwige, bedtime Virginie Lisinopril 11/28 Active Tablets 5mg 180ta 1 by mouth Aaron Caldera /2014 bs twice a day Virginie Gibbons Aspirin Ec Active Tablets 81mg 90tab 1 tablet Unknown Lo-Dose / DR s daily. Glucosamine Active Capsules 1 cap po Unknown Chondroitin / daily Complex Metoprolol Active Tablets 100mg 180ta 1 by mouth Dev Succinate ER /0000 ER 24HR bs twice a day Yana Smith M.D. Amlodipine Active Tablets 2.5mg 90tab 1 by mouth Dev Besylate /0000 s every day Yana Smith M.D. Amoxicillin Active Capsules 500mg 12cap 4 tablets 1 Unknown /0000 s hour before dental work Calcium + D3 Active Tablets 600-200mg once daily Unknown /0000 -Unit Alendronate Active Tablets 70mg take 1 Unknown Sodium /0000 tablet by mouth every week Coumadin 05/26 Hx Tablets 2mg 30tab take 2 mg by Glenna s mouth every Sudhir, - night at M.D. 07/05 bedtime or as directed by through visiting nurse Alendronate 10/16 Hx Tablets 70mg 12tab take 1 M85.831 Aaron Caldera Sodium s tablet by Edwige, - mouth every M.D. Keflex 10/06 Hx Capsules 500mg 10cap take 1 tab R23.8 Aaron ESanam s by mouth q12 Edwige, - hours for 5 M.D. Probiotic Complex 10/06 Hx Capsules 60cap Take 1 R23.8 Catarino Acidophilus s capsule Chester, - daily for 60 M.D. Keflex 02/17 Hx Capsules 500mg 20cap 1 by mouth 681.11 Aaron Caldera s twice a day Edwige, - M.D. 04/19 Lisinopril 07/09 Hx Tablets 5mg 90tab 1 by mouth Sebastián s every in the Stek, - morning M.D., 11/28 [facility], [facility] Cipro 03/19 Hx Tablets 250mg 14tab one by vlad Caldera s twice daily Edwige, - for 7 days M.D. 05/14 Cipro 02/10 Hx Tablets 250mg 14tab one by vlad Caldera s twice daily Edwige, - for 7 days M.D. 02/17 Lisinopril 01/16 Hx Tablets 10mg 90tab take one s pill by Mj, - mouth every M.D., 11/28 at night [facility], [facility] Zestoretic 04/01 Hx Tablets 10-12.5mg [...] Hx Tablets 250mg 14tab take one 599.0 s pill twice Mcrae Helena-W - daily for 7 atson, 08/13 days N.P. Premarin 03/07 Hx Cream 0.625mg/G 42.50 administer 627.3 Alyce M 0gm 0.5 grams Mcrae Helena-W - twice weekly atson, 01/15 N.P. /2013 Cipro 08/18 Hx Tablets 500mg 14tab 1 po bid Aaron ESanam s Aundrea Gibbons M.D. 03/07 Coumadin 05/11 Hx Tablets 2.5mg 90tab take as s directed at Rusty, - 5pm daily M.Gita 03/07 Percocet 05/11 Hx Tablets 5-325mg 90tab 1-2 tabs po s q4-6 prn Rusty, - pain Nitza.Gita 03/07 Cipro 03/02 Hx Tablets 500mg 14tab 1 po bid X7 Aaron Caldera s Aundrea Kim M.D. 04/26 Ibuprofen 11/12 Hx Capsules 200mg prn Aaron ESanam Aundrea Gibbons M.D. 01/15 Zestoretic 11/12 Hx Tablets 10-12.5mg 90tab 1 po qd Aaron Sanam Aundrea Reynolds M.D. 01/15 Medrol Dosepak 07/14 Hx Tablets 4mg 1tabs follow Aaron ESanam package Aundrea Gibbons M.D. 04/26 take with food Flexeril 07/03 Hx Tablets 10mg 15tab 1 po QHS prn Aaron ESanam Aundrea Reynolds M.D. 04/26 Acetasol HC 10/21 Hx Solution 2-1% 15cc 3-4 drops Aaron ESanam qid Aundrea Gibbons M.D. 06/18 Physical Therapy 10/21 Hx 20uni pt Aaron ESanam ts evaluation Mc Gibbons 05/12 treatment for bilat hip pain Cortisporin TC 09/10 Hx 10cc 4 drops to Aaron Caldera Ot Lear qid for Edwige, - 7-10 days M.DSanam 10/21 Tamiflu 01/13 Hx Capsules 75mg 10cap 1 PO bid X 5 Aaron E. s Days Aundrea Gibbons M.D. 03/20 Tylenol Hx Tablets 325mg 100ta [...] /.5 90tab 1 po qd Aaron E. / s Aundrea Gibbons M.D. 11/12 Aleve Hx Tablets 220mg prn Mando, /0000 MD Vipul - 04/20 Atenolol Hx Tablets 25mg 90tab 1 po qd Aaron E. / s Aundrea Gibbons M.D. 01/15 Calcium + [...] /0000 s mouth every Stefek, - day M.DSanam, 04/20 [facility], [facility] Nitrostat Hx Tablets 0.4mg 25tab one sl q5min Unknown /0000 Sub s up to 3 - doses as 02/25 Brilinta Hx Tablets 90mg 180ta 1 tab by Sebastián /0000 bs mouth twice Stefek, - a day M.DSanam, 12/30 [facility] Lisinopril Hx Tablets 10mg 90tab 1 by mouth Unknown /0000 s every day - 01/16 Premarin Hx Cream 0.625mg/G 42.50 / Unknown /0000 M 0gm application - by way of 11/27 vagina 2 weekly Co Q-10 Hx Capsules 100mg 90cap 1 by mouth Unknown /0000 s every day - 09/02 Calcium 600+D3 Hx Tablets 600-800mg daily Unknown [...] Unknown /0000 twice a day - 05/08 Medications Administered in Office Medication Date Status Form Strength Qnty SIG Indications Ordering Provider Inj, Administered Injection Elton SSanam Regadenoson, 018 Horvath, DO 0.1 MG FACC Technetium TC Administered Injection Elton S. 99M 018 Horvath, DO Tetrofosmin, FACC Per Unit Dose Up To 40 Millicuries Immunizations CPT Code Status Date Vaccine Lot # [id number] Given 08/28/2017 Influenza Virus Vaccine, Quadrivalent, Split, [id number] Preservative Free 82741 Given 08/25/2016 Influenza Virus Vaccine, Quadrivalent, Split [id number] Virus, [place] Use 03397 Given 08/24/2015 Influenza Virus Vaccine, Quadrivalent, Split, [id number] Preservative Free 34005 Given 02/17/2015 Tdap - Tetanus/Diptheria/Acellular Pertussis [id number] 82936 Given 02/17/2015 Pneumococcal Conjugate Vaccine 13 Valent For [id number] Intramuscular Use 24249 Given 08/20/2014 Flu Vaccine Split Virus Preservative Free For [id number] Indiv 3Yr Older 00752 Given 08/14/2013 Flu Vaccine Split Virus Preservative Free For [id number] Indiv 3Yr Older 94948 Given 09/19/2012 Zoster (Zostavax) [id number] Q2038 Given 07/11/2012 Fluzone Vaccine [id number] Q2038 Given 11/12/2010 Fluzone Vaccine [id number] 07311 Given 07/28/2008 Influenza Virus 3Yrs & Over 25295 Given 07/23/2007 Influenza Virus 3Yrs & Over 32505 Given 07/23/2007 Influenza Virus 3Yrs & Over 34108 Given 07/23/2007 Influenza Virus 3Yrs & Over [id number] 69284 Given 05/04/2004 Td (History By Patient) [id number] 87427 Given 03/25/1999 Pneumovax (History By Patient) Vital Signs Date Vital Result Comment 09/03/2018 2:10pm Height 63 inches 5'3" Weight 145.00 lb Heart Rate 80 /min BP Systolic Sitting 124 mmHg BP Diastolic Sitting 65 mmHg Body Temperature 98.7 F O2 % BldC Oximetry 98 % BMI (Body Mass Index) 25.7 kg/m2 08/27/2018 2:11pm Height 63 inches 5'3" Weight 144.00 lb BP Systolic 126 mmHg BP Diastolic 72 mmHg Body Temperature 98.3 F BMI (Body Mass Index) 25.5 kg/m2 07/06/2018 1:27pm Height 63 inches 5'3" Weight 140.00 lb BP Systolic 116 mmHg BP Diastolic 71 mmHg Respiratory Rate 15 /min Pain Level 1 BMI (Body Mass Index) 24.8 kg/m2 06/15/2018 2:41pm Height 63 inches 5'3" Weight 145.00 lb BP Systolic 116 mmHg BP Diastolic 60 mmHg Respiratory Rate 16 /min Body Temperature 99.0 F Pain Level 2 BMI (Body Mass Index) 25.7 kg/m2 06/04/2018 8:46am Height 63 inches 5'3" Weight 147.00 lb Heart Rate 96 /min BP Systolic Sitting 110 mmHg BP Diastolic Sitting 60 mmHg Body Temperature 98.7 F Pain Level 1 BMI (Body Mass Index) 26.0 kg/m2 05/10/2018 8:25am Height 63 inches 5'3" Weight 147.00 lb Heart Rate 76 /min BP Systolic Sitting 114 mmHg Lue reg cuff BP Diastolic Sitting 80 mmHg Lue reg cuff BP Systolic Standing 116 mmHg Lue BP Diastolic Standing 80 mmHg Lue Respiratory Rate 16 /min BMI (Body Mass Index) 26.0 kg/m2 Ejection Fraction 60-65% 02/25/14 05/09/2018 8:31am Height 63.5 inches 5'3.50" Weight 146.00 lb Heart Rate 84 /min BP Systolic 140 mmHg BP Diastolic 80 mmHg BMI (Body Mass Index) 25.5 kg/m2 05/08/2018 3:02pm Height 63.5 inches 5'3.50" Weight 146.00 lb Heart Rate 70 /min BP Systolic Sitting 120 mmHg BP Diastolic Sitting 70 mmHg O2 % BldC Oximetry 96 % BMI (Body Mass Index) 25.5 kg/m2 04/30/2018 10:06am Height 63.5 inches 5'3.50" Weight 146.00 lb Heart Rate 69 /min BP Systolic 146 mmHg BP Diastolic 82 mmHg BMI (Body Mass Index) 25.5 kg/m2 04/18/2018 1:42pm Height 63 inches 5'3" Weight 142.00 lb Heart Rate 72 /min BP Systolic 139 mmHg BP Diastolic 76 mmHg O2 % BldC Oximetry 97 % BMI (Body Mass Index) 25.2 kg/m2 02/26/2018 2:31pm Weight 148.00 lb Heart Rate 78 /min BP Systolic Sitting 130 mmHg BP Diastolic Sitting 82 mmHg O2 % BldC Oximetry 96 % 10/16/2017 1:03pm Weight 148.00 lb Heart Rate 60 /min BP Systolic Sitting 140 mmHg BP Diastolic Sitting 72 mmHg Body Temperature 98.1 F O2 % BldC Oximetry 96 % 10/06/2017 11:38am Weight 148.25 lb Heart Rate 70 /min BP Systolic 140 mmHg BP Diastolic 76 mmHg Respiratory Rate 20 /min Body Temperature 97.4 F O2 % BldC Oximetry 97 % 10/04/2017 11:32am Weight 147.50 lb Heart Rate 73 /min BP Systolic 134 mmHg BP Diastolic 78 mmHg Respiratory Rate 18 /min Body Temperature 98.1 F O2 % BldC Oximetry 97 % 08/28/2017 10:55am Height 63 inches 5'3" Weight 149.00 lb Heart Rate 97 /min BP Systolic Sitting 134 mmHg BP Diastolic Sitting 78 mmHg Body Temperature 98.7 F O2 % BldC Oximetry 97 % BMI (Body Mass Index) 26.4 kg/m2 05/04/2017 10:53am Height 63 inches 5'3" Weight 143.00 lb Heart Rate 66 /min BP Systolic Sitting 142 mmHg BP Diastolic Sitting 64 mmHg Body Temperature 98.4 F O2 % BldC Oximetry 97 % BMI (Body Mass Index) 25.3 kg/m2 02/22/2017 11:08am Weight 146.00 lb Heart Rate 68 /min BP Systolic Sitting 126 mmHg BP Diastolic Sitting 74 mmHg Respiratory Rate 15 /min O2 % BldC Oximetry 98 % 08/25/2016 11:27am Height 63 inches 5'3" Weight 146.00 lb Heart Rate 80 /min BP Systolic Sitting 136 mmHg BP Diastolic Sitting 76 mmHg Body Temperature 98.2 F O2 % BldC Oximetry 96 % BMI (Body Mass Index) 25.9 kg/m2 04/18/2016 2:33pm Weight 140.38 lb without shoes Heart Rate 76 /min BP Systolic Sitting 100 mmHg LA reg cuff BP Diastolic Sitting 70 mmHg LA reg cuff BP Systolic Standing 108 mmHg La reg cuff BP Diastolic Standing 72 mmHg La reg cuff Respiratory Rate 17 /min Ejection Fraction 60-65% date 02/25/14 ECHO 02/22/2016 11:01am Weight 139.00 lb Heart Rate 65 /min BP Systolic Sitting 135 mmHg BP Diastolic Sitting 79 mmHg Body Temperature 98.5 F 12/31/2015 11:19am Height 63 inches 5'3" Weight 141.00 lb Heart Rate 66 /min BP Systolic 124 mmHg BP Diastolic 60 mmHg Body Temperature 98.0 F O2 % BldC Oximetry 98 % BMI (Body Mass Index) 25.0 kg/m2 10/28/2015 4:07pm Height 63 inches 5'3" Weight 140.00 lb Heart Rate 73 /min BP Systolic 141 mmHg BP Diastolic 82 mmHg Body Temperature 98.2 F O2 % BldC Oximetry 98 % BMI (Body Mass Index) 24.8 kg/m2 08/24/2015 1:03pm Height 63 inches 5'3" Weight 140.00 lb Heart Rate 72 /min BP Systolic Sitting 136 mmHg BP Diastolic Sitting 68 mmHg Body Temperature 98.7 F O2 % BldC Oximetry 98 % BMI (Body Mass Index) 24.8 kg/m2 04/20/2015 11:16am Height 63 inches 5'3" Weight 138.00 lb Heart Rate 66 /min 78 BP Systolic Sitting 130 mmHg right arm, reg cuff BP Diastolic Sitting 80 mmHg right arm, reg cuff BP Systolic Standing 124 mmHg right arm, reg cuff BP Diastolic Standing 76 mmHg right arm, reg cuff Respiratory Rate 20 /min BMI (Body Mass Index) 24.4 kg/m2 Ejection Fraction 60-65% 02/25/14 02/17/2015 1:56pm Height 63 inches 5'3" Weight 138.00 lb Heart Rate 72 /min BP Systolic Sitting 138 mmHg BP Diastolic Sitting 82 mmHg Body Temperature 98.6 F O2 % BldC Oximetry 98 % BMI (Body Mass Index) 24.4 kg/m2 12/10/2014 11:53am Height 63 inches 5'3" Weight 136.00 lb Heart Rate 64 /min BP Systolic Sitting 132 mmHg BP Diastolic Sitting 80 mmHg Body Temperature 98.2 F BMI (Body Mass Index) 24.1 kg/m2 11/28/2014 3:08pm Height 63 inches 5'3" Weight 136.00 lb Heart Rate 72 /min 80 BP Systolic Sitting 138 mmHg right arm, reg cuff BP Diastolic Sitting 80 mmHg right arm, reg cuff BP Systolic Standing 112 mmHg right arm, reg cuff BP Diastolic Standing 72 mmHg right arm, reg cuff Respiratory Rate 16 /min BMI (Body Mass Index) 24.1 kg/m2 10/06/2014 2:05pm Height 63 inches 5'3" Weight 135.00 lb Pain Level 2 BMI (Body Mass Index) 23.9 kg/m2 09/10/2014 4:09pm Height 63.25 inches 5'3.25" Weight 135.00 lb Heart Rate 68 /min BP Systolic 159 mmHg BP Diastolic 73 mmHg BMI (Body Mass Index) 23.7 kg/m2 08/20/2014 1:16pm Height 63.25 inches 5'3.25" Weight 135.00 lb Heart Rate 68 /min BP Systolic Sitting 120 mmHg BP Diastolic Sitting 70 mmHg Body Temperature 97.1 F BMI (Body Mass Index) 23.7 kg/m2 05/16/2014 2:22pm Height 63 inches 5'3" Weight 132.00 lb Heart Rate 72 /min 78 BP Systolic Sitting 114 mmHg left arm, reg cuff BP Diastolic Sitting 60 mmHg left arm, reg cuff BP Systolic Standing 110 mmHg left arm, reg cuff BP Diastolic Standing 60 mmHg left arm, reg cuff Respiratory Rate 20 /min BMI (Body Mass Index) 23.4 kg/m2 03/04/2014 2:44pm Height 63 inches 5'3" Weight 130.00 lb Heart Rate 80 /min BP Systolic Sitting 110 mmHg Ra reg cuff BP Diastolic Sitting 70 mmHg Ra reg cuff BP Systolic Standing 104 mmHg Ra BP Diastolic Standing 68 mmHg Ra Respiratory Rate 16 /min BMI (Body Mass Index) 23.0 kg/m2 02/17/2014 3:30pm Weight 127.50 lb Heart Rate 88 /min BP Systolic Sitting 118 mmHg BP Diastolic Sitting 72 mmHg 01/16/2014 2:40pm Height 63 inches 5'3" Weight 127.38 lb without shoes Heart Rate 86 /min 88 sit and stand HR reg BP Systolic Sitting 136 mmHg LA reg cuff BP Diastolic Sitting 66 mmHg LA reg cuff BP Systolic Standing 130 mmHg LA reg cuff BP Diastolic Standing 70 mmHg LA reg cuff Respiratory Rate 17 /min BMI (Body Mass Index) 22.6 kg/m2 08/14/2013 1:28pm Height 63.25 inches 5'3.25" Weight 132.00 lb Heart Rate 88 /min BP Systolic Sitting 152 mmHg autocuff 160/83 BP Diastolic Sitting 82 mmHg autocuff 160/83 O2 % BldC Oximetry 98 % BMI (Body Mass Index) 23.2 kg/m2 08/08/2013 3:41pm Weight 131.50 lb Heart Rate 82 /min BP Systolic Sitting 142 mmHg BP Diastolic Sitting 84 mmHg 02/21/2013 10:17am Weight 132.00 lb Heart Rate 71 /min BP Systolic Standing 126 mmHg BP Diastolic Standing 82 mmHg Body Temperature 98.6 F 02/11/2013 1:17pm Weight 132.00 lb Heart Rate 86 /min BP Systolic Sitting 134 mmHg 154/70 initially BP Diastolic Sitting 68 mmHg 154/70 initially 10/23/2012 3:03pm Height 63.5 inches 5'3.50" Weight 138.00 lb Heart Rate 78 /min BP Systolic Sitting 164 mmHg BP Diastolic Sitting 80 mmHg Body Temperature 97.9 F Tympanically BMI (Body Mass Index) 24.1 kg/m2 08/13/2012 12:58pm Height 63.5 inches 5'3.50" Weight 139.00 lb Heart Rate 68 /min BP Systolic Sitting 148 mmHg BP Diastolic Sitting 82 mmHg BMI (Body Mass Index) 24.2 kg/m2 07/11/2012 12:58pm Height 63.5 inches 5'3.50" Weight 140.00 lb Heart Rate 78 /min BP Systolic Sitting 128 mmHg BP Diastolic Sitting 74 mmHg BMI (Body Mass Index) 24.4 kg/m2 03/07/2012 9:47am Height 63.5 inches 5'3.50" Weight 139.00 lb Heart Rate 80 /min BP Systolic Sitting 140 mmHg 160/92 Right Arm BP Diastolic Sitting 100 mmHg 160/92 Right Arm BMI (Body Mass Index) 24.2 kg/m2 08/17/2011 2:32pm Height 72 inches 6'0" Weight 138.00 lb Heart Rate 80 /min BP Systolic Sitting 140 mmHg BP Diastolic Sitting 70 mmHg Body Temperature 97.3 F BMI (Body Mass Index) 18.7 kg/m2 04/26/2011 1:06pm Weight 138.00 lb Heart Rate 72 /min BP Systolic Sitting 122 mmHg BP Diastolic Sitting 82 mmHg Respiratory Rate 20 /min 11/12/2010 10:53am Weight 135.00 lb Heart Rate 88 /min BP Systolic Sitting 168 mmHg BP Diastolic Sitting 88 mmHg O2 % BldC Oximetry 98 % 06/18/2010 12:01pm Weight 138.00 lb Heart Rate 78 /min BP Systolic Sitting 130 mmHg BP Diastolic Sitting 82 mmHg 05/12/2010 10:19am Weight 134.00 lb Heart Rate 75 /min BP Systolic Sitting 150 mmHg BP Diastolic Sitting 80 mmHg 10/21/2009 1:37pm Height 62.5 inches 5'2.50" Weight 134.00 lb Heart Rate 80 /min BP Systolic Sitting 146 mmHg BP Diastolic Sitting 78 mmHg BMI (Body Mass Index) 24.1 kg/m2 09/10/2009 2:12pm Height 62.50 inches 5'2.50" Weight 135.00 lb Heart Rate 78 /min BP Systolic Sitting 142 mmHg BP Diastolic Sitting 80 mmHg BMI (Body Mass Index) 24.3 kg/m2 04/20/2009 10:51am Heart Rate 60 /min 61 BP Systolic Sitting 150 mmHg 149/84 with pt's monitor BP Diastolic Sitting 76 mmHg 149/84 with pt's monitor 03/20/2009 11:15am Height 62.5 inches 5'2.50" Weight 129.00 lb Heart Rate 70 /min BP Systolic Sitting 142 mmHg BP Diastolic Sitting 94 mmHg BMI (Body Mass Index) 23.2 kg/m2 12/31/2007 11:21am Height 62.5 inches 5'2.50" Weight 138.00 lb Heart Rate 68 /min BP Systolic Sitting 134 mmHg BP Diastolic Sitting 74 mmHg BMI (Body Mass Index) 24.8 kg/m2 07/02/2007 11:52am Height 62.5 inches 5'2.50" Weight 145.00 lb Heart Rate 80 /min BP Systolic Sitting 140 mmHg BP Diastolic Sitting 76 mmHg BMI (Body Mass Index) 26.1 kg/m2 Results Test Date Facility Test Result H/L Range Note Inr/Protime 06/18/2018 [facility] Inr 3.39 High 0.77-1.[address] [place] [address] [phone] Lipid Profile 05/16/2018 [facility] Triglycerides 78 mg/dL 2 (Trig/Chol/HDL) [address] [place] [address] [phone] Cholesterol 124 mg/dL 3 HDL Cholesterol 50.9 mg/dL 4 LDL Cholesterol 58 mg/dL 5 Laboratory test 05/16/2018 [facility] Creatine 75 U/L N 10- 223 finding [facility] Kinase(CK) [place] [address] [phone] Laboratory test 05/10/2018 [facility] Creatine <pending> finding [address] [facility] Kinase(CK) [place] [address] [phone] CBC Auto Diff 05/09/2018 [facility] White Blood 3.9 N 3.5- 10.[address] Count 10^3/[place] [address] [phone] Red Blood Count 4.94 10^6/uL N 4.00-5.40 Hemoglobin 15.0 g/dL N 12.0-16.0 Hematocrit 44 % N 35-47 Mean Corpuscular Volume 90 fL N 80-97 Mean Corpuscular Hemoglobin 30 pg N 27-31 Mean Corpuscular HGB Conc 34 g/dL N 31-36 Red Cell Distribution Width 14 % N 10.5-15 Platelet Count 245 10^3/uL N 150-450 Mean Platelet Volume 7.0 um3 Low 7.4-10.4 Abs Neutrophils 2.2 10^3/uL N 1.5-7.7 Abs Lymphocytes 1.2 10^3/uL N 1.0-4.8 Abs Monocytes 0.4 10^3/uL N 0-0.8 Abs Eosinophils 0.1 10^3/uL N 0-0.6 Abs Basophils 0 10^3/uL N 0-0.2 Abs Nucleated RBC 0 10^3/uL Granulocyte % 55.4 % N 38-83 Lymphocyte % 30.0 % N 25-47 Monocyte % 10.0 % High 0-7 Eosinophil % 3.7 % N 0-6 Basophil % 0.9 % N 0-2 Nucleated Red Blood Cells % 0.1 Urinalysis Profile 05/09/2018 [facility] Urine Color Yellow [address] [place] [address] [phone] Urine Appearance Clear Urine Specific [place] 1.012 N 1.010-1.030 Urine pH 7.0 N 5-9 Urine Urobilinogen Negative Negative Urine Ketones Negative Negative Urine Protein Negative Negative Urine Leukocytes Negative Negative Urine Blood Negative Negative Urine Nitrite Negative Negative Urine Bilirubin Negative Negative Urine Glucose Negative Negative Inr/Protime 05/09/2018 [facility] Inr 0.93 N 0.77-1.02 [address] [place] [address] [phone] Laboratory test 05/09/2018 [facility] Partial 30.9 seconds N 26.0-36.3 finding [address] [facility] [place] [address] PTT [phone] Comp Metabolic 05/09/2018 [facility] Sodium 139 mmol/L N 135- 145 Panel [address] [place] [address] [phone] Potassium 3.9 mmol/L N 3.5-5.0 Chloride 103 mmol/L N 101-111 Co2 Carbon Dioxide 30 mmol/L N 22-32 Anion Gap 6 mmol/L N 2-11 Glucose 82 mg/dL N 70-100 Blood Urea Nitrogen 13 mg/dL N 6-24 Creatinine 0.77 mg/dL N 0.51-0.95 BUN/Creatinine Ratio 16.9 N 8-20 Calcium 9.6 mg/dL N 8.6-10.3 Total Protein 6.7 g/dL N 6.4-8.9 Albumin 4.3 g/dL N 3.2-5.2 Globulin 2.4 g/dL N 2-4 Albumin/Globulin Ratio 1.8 N 1-3 Total Bilirubin 0.70 mg/dL N 0.2-1.0 Alkaline Phosphatase 74 U/L N 34-104 Alt 14 U/L N 7-52 Ast 22 U/L N 13-39 Egfr Non- 71.1 >60 Egfr 86.0 >60 6 Type & Screen 05/09/2018 [facility] Patient Blood Type O Positive [address] [place] [address] [phone] Antibody Screen NEGATIVE Urine Culture And 05/09/2018 [facility] Urine Culture SEE RESULT [address] [place] [address] [phone] Comp Metabolic 08/24/2017 [facility] Sodium 139 mmol/L N 133- [address] [place] [address] [phone] Potassium 4.0 mmol/L N 3.5-5.0 Chloride 105 mmol/L N 101-111 Co2 Carbon Dioxide 30 mmol/L N 22-32 Anion Gap 4 mmol/L N 2-11 Glucose 92 mg/dL N 70-100 Blood Urea Nitrogen 15 mg/dL N 6-24 Creatinine 0.78 mg/dL N 0.51-0.95 BUN/Creatinine Ratio 19.2 N 8-20 Calcium 9.8 mg/dL N 8.6-10.3 Total Protein 6.4 g/dL N 6.4-8.9 Albumin 4.3 g/dL N 3.2-5.2 Globulin 2.1 g/dL N 2-4 Albumin/Globulin Ratio 2.0 N 1-3 Total Bilirubin 0.60 mg/dL N 0.2-1.0 Alkaline Phosphatase 88 U/L N 34-104 Alt 16 U/L N 7-52 Ast 25 U/L N 13-39 Egfr Non- 70.0 >60 Egfr 90.1 >60 8 Lipid Profile 08/24/2017 [facility] Triglycerides 74 mg/dL 9 (Trig/Chol/HDL) [address] [place] [address] [phone] Cholesterol 142 mg/dL 10 HDL Cholesterol 56.3 mg/dL 11 LDL Cholesterol 71 mg/dL 12 Laboratory test 08/24/2017 [facility] Vitamin D 23.3 ng/mL N 20-[address] Total [address](Oh) [place] [address] [phone] Basic Metabolic 02/20/2017 [facility] Sodium 138 mmol/L N 133- [address] [place] [address] [phone] Potassium 4.0 mmol/L N 3.5-5.0 Chloride 106 mmol/L N 101-111 Co2 Carbon Dioxide 29 mmol/L N 22-32 Anion Gap 3 mmol/L N 2-11 Glucose 91 mg/dL N 70-100 Blood Urea Nitrogen 12 mg/dL N 6-24 Creatinine 0.79 mg/dL N 0.51-0.95 BUN/Creatinine Ratio 15.2 N 8-20 Calcium 9.2 mg/dL N 8.6-10.3 Egfr Non- 69.2 N >60 Egfr 89.0 N >60 13 Laboratory test 02/20/2017 [facility] Vitamin D 23.2 ng/mL Low 30-50 14 finding 101 [facility] [address](Oh) [place] [address] [phone] Laboratory test 04/19/2016 [facility] Alt (SGPT) 17 U/L N 7- 52 finding [address] [place] [address] [phone] Ast (Sgot) 24 U/L N 13-39 Lipid Profile 04/19/2016 [facility] Triglycerides 75 mg/dL N 15 (Trig/Chol/HDL) [address] [place] [address] [phone] Cholesterol 131 mg/dL N 16 HDL Cholesterol 50.3 mg/dL N 17 LDL Cholesterol 66 mg/dL N 18 Stool For Blood 11/05/2015 [employer] [facility] Miscellaneous Lab negative x 3 Urinalysis Profile 11/02/2015 [facility] Urine Color Yellow N [address] [place] [address] [phone] Urine Appearance Cloudy N Urine Specific [place] 1.012 N 1.010-1.030 Urine pH 5.0 N 5-9 Urine Urobilinogen Negative N Negative Urine Ketones Negative N Negative Urine Protein Negative N Negative Urine Leukocytes Trace Abnormal Negative Urine Blood Negative N Negative * * Abnormal Negative 19 Urine Nitrite Negative N Negative Urine Bilirubin Negative N Negative Urine Glucose Negative N Negative Urine White Blood Cell Trace(0-5/hpf) N Absent Urine Red Blood Cell Absent N Absent Urine Bacteria 1+ Abnormal Absent Urine Squamous Epithelial Cell Present Abnormal Absent CBC Auto Diff 11/02/2015 [facility] White Blood 5.4 10^3/uL N 3.5-10.[address] [place] [address] [phone] Red Blood Count 4.67 10^6/uL N 4.0-5.4 Hemoglobin 14.3 g/dL N 12.0-16.0 Hematocrit 43 % N 35-47 Mean Corpuscular Volume 93 fL N 80-97 Mean Corpuscular Hemoglobin 31 pg N 27-31 Mean Corpuscular HGB Conc 33 g/dL N 31-36 Red Cell Distribution Width 14 % N 10.5-15 Platelet Count 259 10^3/uL N 150-450 Mean Platelet Volume 7 um3 Low 7.4-10.4 Abs Neutrophils 3.6 10^3/uL N 1.5-7.7 Abs Lymphocytes 1.0 10^3/uL N 1.0-4.8 Abs Monocytes 0.6 10^3/uL N 0-0.8 Abs Eosinophils 0.1 10^3/uL N 0-0.6 Abs Basophils 0 10^3/uL N 0-0.2 Abs Nucleated RBC 0 10^3/uL N Granulocyte % 67.4 % N 38-83 Lymphocyte % 18.0 % Low 25-47 Monocyte % 11.3 % High 1-9 Eosinophil % 2.6 % N 0-6 Basophil % 0.7 % N 0-2 Nucleated Red Blood Cells % 0 N Comp Metabolic Panel 11/02/2015 [facility] Sodium 138 mmol/L N 133-[address] [place] [address] [phone] Potassium 3.9 mmol/L N 3.5-5.0 Chloride 102 mmol/L N 101-111 Co2 Carbon Dioxide 31 mmol/L N 22-32 Anion Gap 5 mmol/L N 2-11 Glucose 74 mg/dL N 70-100 Blood Urea Nitrogen 15 mg/dL N 6-24 Creatinine 0.91 mg/dL N 0.51-0.95 BUN/Creatinine Ratio 16.5 N 8-20 Calcium 9.7 mg/dL N 8.6-10.3 Albumin 4.5 g/dL N 3.2-5.2 Total Bilirubin 0.50 mg/dL N 0.2-1.0 Alt 23 U/L N 7-52 Ast 26 U/L N 13-39 Egfr Non- 58.9 N >60 Egfr 75.7 N >60 20 Total Protein 6.7 g/dL N 6.4-8.9 Globulin 2.2 g/dL N 2-4 Albumin/Globulin Ratio 2.0 N 1-3 Alkaline Phosphatase 92 U/L N 34-104 Laboratory test 11/02/2015 [facility] Erythrocyte Sed 16 mm/Hr N 0-[address] [place] [address] [phone] C Reactive Protein < 1.00 mg/L N < 5.00 21 Urine Culture And Sensitivities SEE RESULT BELOW 22 Basic Metabolic Panel 09/09/2015 [facility] Sodium 139 mmol/L N 133-[address] [place] [address] [phone] Potassium 4.2 mmol/L N 3.5-5.0 Chloride 104 mmol/L N 101-111 Co2 Carbon Dioxide 30 mmol/L N 22-32 Anion Gap 5 mmol/L N 2-11 Glucose 86 mg/dL N 70-100 Blood Urea Nitrogen 15 mg/dL N 6-24 Creatinine 0.81 mg/dL N 0.51-0.95 BUN/Creatinine Ratio 18.5 N 8-20 Calcium 9.9 mg/dL N 8.6-10.3 Egfr Non- 67.4 N >60 Egfr 86.6 N >60 23 Laboratory test finding 04/15/2015 Alt (SGPT) 17 U/L N 7-52 24, 25 Ast (Sgot) 24 U/L N 13-39 26 Lipid Profile (Trig/Chol/HDL) 04/15/2015 Triglycerides 74 mg/dL N 27 Cholesterol 127 mg/dL N 28 HDL Cholesterol 53.2 mg/dL N 29 LDL Cholesterol 59 mg/dL N 30 CBC Auto 12/12/2014 [facility] White Blood 4.7 10^3/uL Low 4.8 -10.[address] [place] [address] [phone] Red Blood Count 4.77 10^6/uL N 4.0-5.4 Hemoglobin 14.6 g/dL N 12.0-16.0 Hematocrit 45 % N 35-47 Mean Corpuscular Volume 94 fL N 80-97 Mean Corpuscular Hemoglobin 31 pg N 27-31 Mean Corpuscular HGB Conc 33 g/dL N 31-36 Red Cell Distribution Width 13 % N 10.5-15 Platelet Count 260 10^3/uL N 150-450 Mean Platelet Volume 7 um3 Low 7.4-10.4 Abs Neutrophils 2.9 10^3/uL N 1.5-7.7 Abs Lymphocytes 1.2 10^3/uL N 1.0-4.8 Abs Monocytes 0.5 10^3/uL N 0-0.8 Abs Eosinophils 0.1 10^3/uL N 0-0.6 Abs Basophils 0 10^3/uL N 0-0.2 Abs Nucleated RBC 0 10^3/uL N Granulocyte % 61.9 % N 38-83 Lymphocyte % 25.4 % N 25-47 Monocyte % 9.9 % High 1-9 Eosinophil % 2.3 % N 0-6 Basophil % 0.5 % N 0-2 Nucleated Red Blood Cells % 0 N Laboratory test finding 04/18/2014 [facility] Alt 24 U/L N 7- 52 31 [address] [place] [address] [phone] Ast 25 U/L N 13-39 32 Lipid Profile 04/18/2014 [facility] Triglycerides 74 mg/dL N 33 (Trig/Chol/HDL) [address] [place] [address] [phone] Cholesterol 130 mg/dL N 34 HDL Cholesterol 57.8 mg/dL N 35 LDL Cholesterol 57 mg/dL N 36 Urinalysis Profile 03/18/2014 Urine Color Ayesha N Urine Appearance Turbid N Urine Specific [place] 1.029 N 1.010-1.030 Urine pH 5.0 N 5-9 Urine Urobilinogen Negative N Negative Urine Ketones Negative N Negative Urine Protein 2+(100 mg/dL) Abnormal Negative Urine Leukocytes 3+ Abnormal Negative Urine Blood Negative N Negative * * Abnormal Negative 37 Urine Nitrite Negative N Negative Urine Bilirubin Negative N Negative Urine Glucose Negative N Negative Urine White Blood Cell 3+(>10/hpf) Abnormal Absent Urine Red Blood Cell 1+(<3/hpf) Abnormal Absent Urine Bacteria 1+ Abnormal Absent Urine Culture And 03/18/2014 Urine Culture (SEE NOTE) 38 Sensitivities Laboratory test 01/11/2014 [facility] Troponin I 0.67 ng/mL N <0.03 39 finding [address] [place] [address] [phone] Myoglobin 61.9 ng/mL N 14.3-65.8 CKMB 01/11/2014 [facility] CKMB ng/mL 4.3 ng/mL N 0.6-6.3 [address] [place], [place] [id number] [phone] Laboratory test 01/11/2014 [facility] Magnesium 2.1 mg/dL N 1.9-2.7 finding [address] [place], [place] [address] [phone] Creatine Kinase 91 U/L N 10-223 Comp Metabolic Panel 01/11/2014 [facility] Sodium 137 mmol/L N 133-145 [place] [address] [phone] Potassium 3.8 mmol/L N 3.7-5.6 Chloride 104 mmol/L N 101-111 Co2 Carbon Dioxide 26 mmol/L N 22-32 Anion Gap 7 mmol/L N 2-11 Glucose 129 mg/dL High 70-100 Blood Urea Nitrogen 14 mg/dL N 6-24 Creatinine 0.80 mg/dL N 0.51-0.95 BUN/Creatinine Ratio 17.5 N 8-20 Calcium 9.6 mg/dL N 8.6-10.3 Total Protein 6.7 g/dL N 6.4-8.9 Albumin 4.3 g/dL N 3.2-5.2 Globulin 2.4 g/dL N 2-4 Albumin/Globulin Ratio 1.8 N 1-3 Total Bilirubin 0.70 mg/dL N 0.2-1.0 Alkaline Phosphatase 75 U/L N 34-104 Alt 11 U/L N 7-52 Ast 26 U/L N 13-39 Egfr Non- 68.7 N >60 Egfr 88.3 N >60 40 Laboratory test 01/11/2014 [facility] Activated 30.7 seconds N 24.0-36.1 finding [address] [facility] [place] [address] Thrombo Time [phone] B Type Natriuretic Peptide 168 pg/mL N 41 Inr/Protime 01/11/2014 [facility] Inr 0.97 N 0.85-1.06 [address] [place] [address] [phone] CBC Auto Diff 01/11/2014 [facility] White Blood 6.1 10^3/uL N 4.8-10.8 [address] [facility] [place] [address] [phone] Red Blood Count 4.48 10^6/uL N 4.0-5.4 Hemoglobin 13.3 g/dL N 12.0-16.0 Hematocrit 40 % N 35-47 Mean Corpuscular Volume 89 fL N 80-97 Mean Corpuscular Hemoglobin 30 pg N 27-31 Mean Corpuscular HGB Conc 34 g/dL N 31-36 Red Cell Distribution Width 13 % N 10.5-15 Platelet Count 273 10^3/uL N 150-450 Mean Platelet Volume 7 um3 Low 7.4-10.4 Abs Neutrophils 4.7 10^3/uL N 1.5-7.7 Abs Lymphocytes 0.8 10^3/uL Low 1.0-4.8 Abs Monocytes 0.5 10^3/uL N 0-0.8 Abs Eosinophils 0.1 10^3/uL N 0-0.6 Abs Basophils 0 10^3/uL N 0-0.2 Abs Nucleated RBC 0 10^3/uL N Granulocyte % 77.7 % N 38-83 Lymphocyte % 12.4 % Low 25-47 Monocyte % 8.3 % N 1-9 Eosinophil % 1.3 % N 0-6 Basophil % 0.3 % N 0-2 Nucleated Red Blood Cells % 0 N CBC Auto Diff 01/08/2014 [facility] White Blood 5.0 10^3/uL N 4.8-10.[address] [place] [address] [phone] Red Blood Count 4.65 10^6/uL N 4.0-5.4 Hemoglobin 13.8 g/dL N 12.0-16.0 Hematocrit 41 % N 35-47 Mean Corpuscular Volume 88 fL N 80-97 Mean Corpuscular Hemoglobin 30 pg N 27-31 Mean Corpuscular HGB Conc 34 g/dL N 31-36 Red Cell Distribution Width 13 % N 10.5-15 Platelet Count 271 10^3/uL N 150-450 Mean Platelet Volume 7 um3 Low 7.4-10.4 Abs Neutrophils 3.5 10^3/uL N 1.5-7.7 Abs Lymphocytes 1.1 10^3/uL N 1.0-4.8 Abs Monocytes 0.4 10^3/uL N 0-0.8 Abs Eosinophils 0.1 10^3/uL N 0-0.6 Abs Basophils 0 10^3/uL N 0-0.2 Abs Nucleated RBC 0 10^3/uL N Granulocyte % 69.4 % N 38-83 Lymphocyte % 20.9 % Low 25-47 Monocyte % 7.6 % N 1-9 Eosinophil % 1.4 % N 0-6 Basophil % 0.7 % N 0-2 Nucleated Red Blood Cells % 0 N Comp Metabolic Panel 01/08/2014 [facility] Sodium 136 mmol/L N 133-145 [address] [place] [address] [phone] Potassium 3.4 mmol/L Low 3.7-5.6 Chloride 101 mmol/L N 101-111 Co2 Carbon Dioxide 31 mmol/L N 22-32 Anion Gap 4 mmol/L N 2-11 Glucose 132 mg/dL High 70-100 Blood Urea Nitrogen 16 mg/dL N 6-24 Creatinine 0.79 mg/dL N 0.51-0.95 BUN/Creatinine Ratio 20.3 High 8-20 Calcium 9.6 mg/dL N 8.6-10.3 Total Protein 6.9 g/dL N 6.4-8.9 Albumin 4.3 g/dL N 3.2-5.2 Globulin 2.6 g/dL N 2-4 Albumin/Globulin Ratio 1.7 N 1-3 Total Bilirubin 0.40 mg/dL N 0.2-1.0 Alkaline Phosphatase 68 U/L N 34-104 Alt 10 U/L N 7-52 Ast 24 U/L N 13-39 Egfr Non- 69.7 N >60 Egfr 89.6 N >60 42 Laboratory test 01/08/2014 [facility] Troponin I 0.66 ng/mL N <0.03 43 finding [address] [place] [address] [phone] Urine Culture And 08/14/2013 [facility] Urine Culture (SEE NOTE ) 44 Sensitivities [address] [place] [address] [phone] Urinalysis 08/14/2013 [facility] Urine Color Yellow W/Microscopic [address] [place] [address] [phone] Urine Appearance Clear Urine Specific [place] 1.012 1.010-1.030 Urine Esterase Trace Abnormal Negative Urine Nitrate Negative Negative Urine Urobilinogen [...] Urine 1+ None Seen Ua Routine 08/08/2013 [employer] [facility] Ua Specific Bona[place] 1.015 Ua PH 5 Ua Color yellow Ua Appera cloudy Ua WBC positive Ua Protein neg Ua Glucose neg Ua Ketones trace Ua Bilirubin neg Ua Urobilinogen neg Ua Nitrite positive Ua Occult Blood neg Lipid Profile 08/06/2013 [facility] Triglycerides 77 mg/dL 40 -200 (Trig/Chol/HDL) [address] [place] [address] [phone] Cholesterol 199 mg/dL Less than 200 HDL Cholesterol 64 mg/dL High 40-60 45 Cholesterol/HDL Ratio 3.1 Average 1-4.44 LDL Cholesterol 119.6 High Less Than 100 46 CBC Auto Diff 08/06/2013 [facility] White Blood 6.9 10^3/uL 4.8-10.[address] [place] [address] [phone] Red Blood Count 5.01 10^6/uL 4.0-5.4 Hemoglobin [...] Morphology Normal Normal Comp Metabolic Panel 08/06/2013 [facility] Sodium 137 mmol/L 133-[address] [place] [address] [phone] Potassium 3.9 mmol/L 3.5-5.0 Chloride 99 mmol/L [...] Egfr Non- 80.3 >60 Egfr 103.3 >60 47 Ua Routine 02/21/2013 [employer] [facility] Ua Specific Bona[place] 1.005 Ua PH 7.0 Ua Color yellow Ua Appera cloudy Ua WBC moderate Ua Protein +30 Ua Glucose neg Ua Ketones neg Ua Bilirubin small Ua Urobilinogen neg Ua Nitrite positive Ua Occult Blood non hem trace Urine Culture And 02/21/2013 [facility] Urine Culture (SEE NOTE ) [address] [place] [address] [phone] Urine Culture And 10/23/2012 [facility] Urine Culture (SEE NOTE ) [address] [place] [address] [phone] Ua Routine 10/23/2012 [employer] [facility] Ua Specific 1.005 [place] Ua PH 5 Ua Color yellow Ua Appera slightly cloudy Ua WBC trace Ua Protein negative Ua Glucose negative Ua Ketones negative Ua Bilirubin negative Ua Urobilinogen negative Ua Nitrite negative Ua Occult Blood negative CBC Auto 07/31/2012 [facility] White Blood 4.4 10^3/uL Low 4.8 -10.[address] [place] [address] [phone] Red Blood Count 4.93 10^6/uL 4.0-5.4 Hemoglobin [...] Cells % 0.1 Comp Metabolic Panel 07/31/2012 [facility] Sodium 138 mmol/L 133-[address] [place] [address] [phone] Potassium 4.0 mmol/L 3.5-5.0 Chloride 103 mmol/L [...] 1-3 Total Bilirubin 1.2 mg/dL High 0.1-1.0 50 Alkaline Phosphatase 74 U/L 30-110 Alt 14 U/L 14-54 Ast 22 U/L 12-42 Egfr Non- 80.5 >60 Egfr 103.5 >60 51 Laboratory test 07/31/2012 [facility] TSH (Thyroid 3.28 0.34- 5.[address] Stimulating Horm) MIU/[place] [address] [phone] Lipid Profile 07/31/2012 [facility] Triglycerides 62 mg/dL 40 -200 (Trig/Chol/HDL) [address] [place] [address] [phone] Cholesterol 216 mg/dL High Less than 200 52 HDL Cholesterol 59 mg/dL 40-60 53 Cholesterol/HDL Ratio 3.7 AVERAGE 1-4.44 LDL Cholesterol 144.6 mg/dL High Less Than 100 Urine Culture & 03/07/2012 [facility] M [address] <SEE NOTE> [place] [address] [phone] Urine Culture & 08/17/2011 [facility] Urine Culture ESCHERICHIA COLI 56 [address] [facility] [address] [phone] Sensitivities For 08/17/2011 [facility] Ampicillin <=2 S Urine Culture [address] [place] [address] [phone] Amikacin <=2 S Ciprofloxacin <=0.25 S Ceftriaxone <=1 S Cefazolin <=4 S Nitrofurantoin <=16 S Gentamicin <=1 S Imipenem <=1 S Levofloxacin <=0.12 S Trimeth-Sulfa <=20 S Ceftazidime <=1 S Tigecycline <=0.5 S Urinalysis W/Microscopic 08/17/2011 [facility] Ua Color ORANGE Yellow [address] [place] [address] [phone] Appearance-Urine CLEAR Clear Specific [place]ona[place]-Ur 1.009 Low 1.010-1.030 Esterase-Urine 3+ Abnormal Negative Nitrite POSITIVE Abnormal Negative [id number] NEGATIVE Negative Protein-Urine NEGATIVE Negative PH-Urine 6.0 5-9 Blood-Urine TRACE Abnormal Negative Ketones-Urine NEGATIVE Negative Bilirubin-Ur NEGATIVE Negative Glucose-Urine NEGATIVE Negative WBC-Urine TNTC Abnormal 0-5 RBC-Urine 0-2 0-2 Epith Cells-Ur SMALL None Bacteria-Urine 4+ None CBC With Manual 04/26/2011 [facility] White Blood 4.5 CUMM Low 4.8-10.[address] [place] [address] [phone] Red Cell Count 4.34 CUMM 4.2-5.4 Hemoglobin [...] RBC Morphology NORMAL Comp Metabolic Panel 04/26/2011 [facility] Sodium 136 mmol/L 135-145 [address] [place] [address] [phone] Potassium 4.0 mmol/L 3.5-5.0 Chloride 100 mmol/L Low 101-111 Co2 (Carbon Dioxide) 29.0 mmol/L 22-32 Anion Gap 7.0 mmol/L 2-11 56 Glucose 88 mg/dL 70-100 BUN 12 mg/dL 6-24 Creatinine 0.80 mg/dL 0.50-1.40 One Over Creatinine 1.20 BUN/Creatinine Ratio 15.0 8-20 Calcium 9.8 mg/dL 8.1-9.9 Total Protein 6.4 GM/DL 6.2-8.1 Albumin 4.3 GM/DL 3.2-5.2 Globulin 2.1 GM/DL 2-4 Albumin/Globulin Ratio 2.0 1-3 Bilirubin Total 0.7 mg/dL 0.4-1.5 57 Alkaline Phosphatase 71 U/L 30-110 Alt (SGPT) 15 U/L 14-54 Ast (Sgot) 23 U/L 12-42 eGFR Non- 69.2 > 60 eGFR 89.0 > 60 58 Sensitivities For Urine 03/02/2011 [facility] Ampicillin >=32 R Culture [address] [place] [address] [phone] Amikacin <=2 S Ciprofloxacin <=0.25 S Ceftriaxone <=1 S Cefazolin <=4 S Nitrofurantoin 64 I Gentamicin <=1 S Imipenem <=1 S Levofloxacin <=0.12 S Trimeth-Sulfa <=20 S Ceftazidime <=1 S Tigecycline <=0.5 S Piperacillin/Tazobactam <=4 S Urinalysis W/Microscopic 03/02/2011 [facility] Ua Color ORANGE Yellow [address] [place] [address] [phone] Appearance-Urine CLOUDY Clear Specific [place]ona[place]-Ur 1.016 1.010-1.030 Esterase-Urine 3+ Abnormal Negative Nitrite POSITIVE Abnormal Negative [id number] NEGATIVE Negative Protein-Urine NEGATIVE Negative PH-Urine 6.5 5-9 Blood-Urine 1+ Abnormal Negative Ketones-Urine NEGATIVE Negative Bilirubin-Ur NEGATIVE Negative Glucose-Urine NEGATIVE Negative WBC-Urine TNTC Abnormal 0-5 RBC-Urine 1-5 0-2 Epith Cells-Ur MODERATE None Bacteria-Urine 4+ None Urine Culture & 03/02/2011 [facility] Urine Culture KLEBSIELLA [address] Sensitivi PNEUM <[place] [address] NOTE> [phone] Urine Culture & 10/16/2010 [facility] Urine Culture ESCHERICHIA 61 [address] [facility] [place] [address] [phone] Sensitivities For 10/16/2010 [facility] Ampicillin 4 S Urine Culture [address] [place] [address] [phone] Amikacin <=2 S Ciprofloxacin <=0.25 S Ceftriaxone <=1 S Cefazolin <=4 S Nitrofurantoin <=16 S Gentamicin <=1 S Imipenem <=1 S Levofloxacin <=0.12 S Trimeth-Sulfa <=20 S Ceftazidime <=1 S Tigecycline <=0.5 S Piperacillin/Tazobactam KB 28 S Comp Metabolic Panel 05/14/2010 [facility] Sodium 137 mmol/L 135-145 [address] [place] [address] [phone] Potassium 4.1 mmol/L 3.5-5.0 Chloride 100 mmol/L Low 101-111 Co2 (Carbon Dioxide) 29.0 mmol/L 22-32 Anion Gap 8.0 mmol/L 2-11 61 Glucose 79 mg/dL 70-100 62 BUN 10 mg/dL 6-24 Creatinine 0.80 mg/dL 0.50-1.40 One Over Creatinine 1.20 BUN/Creatinine Ratio 12.5 8-20 Calcium 9.4 mg/dL 8.1-9.9 63 Total Protein 6.6 GM/DL 6.2-8.1 Albumin 4.3 GM/DL 3.2-5.2 Globulin 2.3 GM/DL 2-4 Albumin/Globulin Ratio 1.9 1-3 Bilirubin Total 0.9 mg/dL 0.4-1.5 64 Alkaline Phosphatase 78 U/L 30-110 Alt (SGPT) 16 U/L 14-54 Ast (Sgot) 23 U/L 12-42 eGFR Non- 73.7 > 60 eGFR 89.2 > [address] [facility] 05/14/2010 [facility] TSH 1.65 MIU/ML 0.34- 5.[address] [place] [address] [phone] Lipid Profile 05/14/2010 [facility] Triglyceride 133 mg/dL 40 -200 (Trig/Chol/HDL) [address] [place] [address] [phone] Cholesterol 229 mg/dL High Less Than 200 66 High Density Lipoprotein 53 mg/dL 40-60 67 Cholesterol/HDL Ratio 4.32 AVERAGE 1-4.44 Low Density Lipoprotein 149 mg/dL High Less Than 100 68 CBC With 05/14/2010 [facility] White Blood 4.2 CUMM Low 4.8- 10.8 Electronic Diff [address] [place] [address] [phone] Red Cell Count 4.48 CUMM 4.2-5.4 Hemoglobin [...] Basophils 0 0-0.2 Basic Metabolic Panel 03/20/2009 [facility] Sodium 137 mmol/L 135-[address] [place] [address] [phone] Potassium 4.4 mmol/L 3.5-5.0 Chloride 103 mmol/L 101-111 Co2 (Carbon Dioxide) 31.0 mmol/L 22-32 Anion Gap 3.0 mmol/L 2-11 69 Glucose 87 mg/dL 70-100 70 BUN 16 mg/dL 6-24 Creatinine 0.70 mg/dL 0.50-1.40 One Over Creatinine 1.40 BUN/Creatinine Ratio 22.9 High 8-20 Calcium 9.8 mg/dL 8.1-9.9 71 CBC With 02/04/2008 [facility] White Blood 5.4 CUMM 4.8-10.8 72 Electronic Diff [address] [place] [address] [phone] Abs Basophils 0 0-0.2 Abs Eosinophils 0.2 0-0.6 Absolute Neutrophil Count 3.3 1.5-7.7 Abs Lymphs 1.4 1.0-4.8 Abs Mononuclear 0.4 0-0.8 Basophil % 0.6 % 0-2 Hematocrit 42 % 35-47 Hemoglobin 14.1 g/dL 12.0-16.0 Eosinophil % 4.5 % 0-6 Gran % 61.0 % 38-83 Lymph % 26.3 % 20-45 Mean Corpuscular HGB Cone 34 g/dL 32-36 Mean Corpuscular Hemoglob 30 pg 27-31 Mean Corpuscular Volume 89 um3 79-97 Mean Platelet Volume 7.8 um3 7.4-10.4 Mononuclear % 7.6 % 1-9 Platelet Count 370 CUMM 150-450 Red Cell Count 4.70 CUMM 4.2-5.4 Redcell Distribution WDTH 13 % 10.5-15 Comp Metabolic Panel 02/04/2008 [facility] One Over Creatinine 1.[address] [place] [address] [phone] Anion Gap 2.0 mmol/L 2-11 73 Albumin/Globulin Ratio 1.4 1-3 Albumin 3.9 GM/DL 3.2-5.2 Alkaline Phosphatase 77 U/L 30-110 Alt (SGPT) 25 U/L 14-54 Ast (Sgot) 29 U/L 12-42 BUN 13 mg/dL 6-24 Calcium 9.3 mg/dL 8.7-10.2 Chloride 106 mmol/L 101-111 Co2 (Carbon Dioxide) 30.0 mmol/L 22-32 Globulin 2.8 GM/DL 2-4 Glucose 94 mg/dL 70-105 Potassium 3.9 mmol/L 3.5-5.0 Sodium 138 mmol/L 135-145 Bilirubin Total 1.0 mg/dL 0.4-1.5 Total Protein 6.7 GM/DL 6.2-8.1 BUN/Creatinine Ratio 14.4 8-20 Creatinine 0.9 mg/dL 0.5-1.4 Laboratory test 02/04/2008 [facility] TSH 1.39 MIU/ML 0.34- 5.[address] [place] [address] [phone] Lipid Profile 02/04/2008 [facility] Cholesterol 3.98 AVERAGE 1-4.44 (Trig/Chol/HDL) [address] /[place] [address] [phone] Cholesterol 195 mg/dL Less Than 200 74 Triglyceride 76 mg/dL 40-200 High Density Lipoprotein 49 mg/dL 40-60 75 Low Density Lipoprotein 131 mg/dL High Less Than 100 76 1 CALL RESULTS TO [id number] FAX RESULTS TO [id number] 2 Desirable: <150 Borderline High: 150-199 High: [...] 5 Kidney failure <15 (or dialysis) 7 SEE RESULT BELOW Name: ALPA KEARNEY : [address]: Glenna Peguero MD Acct: [id number] Unit: [id number] AGE: 87 Location: [facility] Re05/09/18 SEX: F Status: REG REF SPEC: [id number] MICHAELA: 05/09/18-1140 [facility] DR: Glenna Peguero MD REQ: [id number] RECD: 05/09/18-1254 STATUS: REG PIPER DR: Dev Gibbons III, MD _ SOURCE: URINE SPDESC: ORDERED: Urine Culture QUERIES: Urine Source: Clean Catch Procedure Result Reported Site Urine Culture Final 05/10/18- 1357 ML No growth of clinically significant organisms * ML - Main Lab . END OF REPORT DEPARTMENT OF PATHOLOGY, [address] [place] [address] Gabriele Ravi M.D. Director [facility] # [id number] 8 Because ethnic data is not always readily [...] 15-29 5 Kidney failure <15 (or dialysis) 9 Desirable: <150 Borderline High: 150-199 High: 200-499 Very High: >500 10 Desirable: <200 Borderline High: 200-239 High: >239 11 Low: <40 Desirable: 40-60 High: >60 12 Desirable: <100 Near Optimal: 100-129 Borderline High: 130-159 High: 160-189 Very High: >189 13 Because ethnic data is not always [...] 5 Kidney failure <15 (or dialysis) 14 FASTING 15 Desirable <150 Borderline high 150-199 High 200-499 Very High >500 16 Desirable <200 Borderline high 200-239 High >239 17 Low <40 Desirable: 40-60 High: >60 18 Desirable: <100 mg/dL Near Optimal: 100-129 mg/dL Borderline High: 130-159 mg/dL High: 160-189 mg/dL Very High: >189 mg/dL 19 *Ascorbic acid is present which may interfere with detection of blood. 20 Because ethnic data is not always readily [...] 15-29 5 Kidney failure <15 (or dialysis) 21 Acute inflammation: >10.00 22 SEE RESULT BELOW Name: ALPA KEARNEY : [address]: Aaron Gibbons III, MD Acct: [id number] Unit: [id number] AGE: 85 Location: [facility] Re11/02/15 SEX: F Status: REG REF SPEC: [id number] MICHAELA: 11/02/15 [facility] DR: Aaron Gibbons III, MD REQ: [id number] RECD: 11/02/15 STATUS: COMP _ SOURCE: URINE SPDESC: ORDERED: Urine Culture Procedure Result Reported Site Urine Culture Final 11/03/15- 1733 ML No growth of clinically significant organisms * ML - MAIN LAB ([facility]) . END OF REPORT * ML=Testing performed at Main Lab DEPARTMENT OF PATHOLOGY, [address] [place] [address] Gabriele Ravi M.D. Director [facility] # [id number] 23 Because ethnic data is not always readily [...] 15-29 5 Kidney failure <15 (or dialysis) 24 FASTING 25 FASTING 26 FASTING 27 Desirable <150 Borderline high 150-199 High 200-499 Very High >500 28 Desirable <200 Borderline high 200-239 High >239 29 Low <40 Desirable: 40-60 High: >60 30 Desirable: <100 mg/dL Near Optimal: 100-129 mg/dL Borderline High: 130-159 mg/dL High: 160-189 mg/dL Very High: >189 mg/dL 31 FASTING 32 FASTING 33 Desirable <150 Borderline high 150-199 High 200-499 Very High >500 34 Desirable <200 Borderline high 200-239 High >239 35 Low <40 Desirable: 40-60 High: >60 36 Desirable <100 Near Optimal 100-129 Borderline high 130-159 High 160-189 Very High >189 37 *Ascorbic acid is present which may interfere with detection of blood. 38 RUN DATE: 03/20/14 [facility] LAB LIVE PAGE 1 RUN TIME: [address] [place], [place] [address] Specimen Inquiry Name: ALPA KEARNEY : [address]: Aaron Gibbons III, MD Acct: [id number] Unit: [id number] AGE: 83 Location: [facility] Re03/18/14 SEX: F Status: REG REF SPEC: [id number] MICHAELA: 03/18/14-1530 [facility] DR: Aaron Gibbons III, MD REQ: [id number] RECD: 03/18/14 STATUS: COMP _ SOURCE: URINE SPDESC: ORDERED: Urine Culture QUERIES: Medent Number [id number] Urine Source: Random Procedure Result Verified Site Urine Culture Final 03/20/14- 1003 ML Organism 1 ENTEROBACTER CLOACAE COMPLEX [place] Count >100,000 (Many) CFU/ML 1. ENTEROBACTER CLOACAE [...] performed at Main Lab DEPARTMENT OF PATHOLOGY, [address] [place] [address] Gabriele Ravi M.D. Director [facility] # [id number] Result TnIDx:0.67 Called to [id number] at: 12:59:35 by:[id number] Read back by: [id number] Reference Range and Interpretation: TnI (ng/mL) Interpretation Less Than 0.03 ng/mL Not supportive of diagnosis of [place] 0.03 - 0.50 ng/mL Indeterminate: suggest serial studies if clinically indicated. Greater than 0.5 ng/mL Consistent with diagnosis of [place] 40 Because ethnic data is not always [...] 5 Kidney failure <15 (or dialysis) 41 >100 to <200 pg/mL: likely compensated congestive heart failure (CHF) 200 to 400 pg/mL: likely moderate CHF >400 pg/mL: likely moderate to severe CHF [place] [facility] 42 Because ethnic data is not always readily [...] 15-29 5 Kidney failure <15 (or dialysis) 43 Result TnIDx:0.66 Called to [id number] at: 19:50:58 by:[id number] Read back by: HAYDE Reference Range and Interpretation: TnI (ng/mL) Interpretation Less Than 0.03 ng/mL Not supportive of diagnosis of [place] 0.03 - 0.50 ng/mL Indeterminate: suggest serial studies if clinically indicated. Greater than 0.5 ng/mL Consistent with diagnosis of [place] 44 RUN DATE: 08/16/13 [facility] LAB LIVE PAGE 1 RUN TIME: 1130 [address] [place], [place] [address] Specimen Inquiry Name: ALPA KEARNEY : [address]: Aaron Gibbons III, MD Acct: [id number] Unit: [id number] AGE: 82 Location: [facility] Re08/14/13 SEX: F Status: REG REF SPEC: [id number] MICHAELA: 08/14/13-1436 [facility] DR: Aaron Gibbons III, MD REQ: [id number] RECD: 08/14/13 STATUS: COMP _ SOURCE: URINE SPDESC: ORDERED: Urine Culture QUERIES: Medent Number [id number] Procedure Result Verified Site Urine Culture Final 08/16/13- 1130 ML Organism 1 NORMAL ARABELLA Caldwell Count 10-25,000 (Moderate) CFU/ML END OF REPORT * ML=Testing performed at Main Lab DEPARTMENT OF PATHOLOGY, [address] [place] [address] Gabriele Ravi M.D. Director [facility] Permit #[id number] HDL Interpretation: Undesirable: High Risk: Less than 40 mg/dL Desirable: Low Risk: Greater than 60 mg/dL 46 LDL Interpretation: Low Risk Optimal Level: LDL Less than 100 mg/dL Near or Above Optimal: LDL 100-129 mg/dL Borderline High Risk: LDL 130-159 mg/dL High Risk: LDL 160-189 mg/dL Very High Risk: LDL Greater than 189 mg/dL 47 Because ethnic data is not always readily [...] 15-29 5 Kidney failure <15 (or dialysis) 48 RUN DATE: 02/23/13 [facility] LAB LIVE PAGE 1 RUN TIME: [address] [place] [address] Specimen Inquiry Name: ALPA KEARNEY : [address]: Anastasiya Dhillon MD Acct: [id number] Unit: [id number] AGE: 82 Location: [facility] Re02/21/13 SEX: F Status: REG REF SPEC: [id number] MICHAELA: 02/21/13-11[address] [facility] [address]: Anastasiya Dhillon MD REQ: [id number] RECD: 02/21/135737 STATUS: COMP _ SOURCE: URINE SPDESC: ORDERED: Urine Culture QUERIES: Medent Number [id number] Procedure Result Verified Site Urine Culture Final 02/23/13- 0910 ML Organism 1 ESCHERICHIA COLI Caldwell Count >100,000 (Many) CFU/ML 1. ESCHERICHIA COLI [...] performed at Main Lab DEPARTMENT OF PATHOLOGY, [facility], [place] [address] Gabriele Ravi M.D. Director [facility] Permit #[id number] RUN DATE: 10/25/12 [facility] LAB LIVE PAGE 1 RUN TIME: 1112 [facility] [employer] [place], [place] [address] Specimen Inquiry Name: JORGEELVINELOINAALPA : [address]: Lisa Hernandez NP Acct: [id number] Unit: [id number] AGE: 82 Location: [facility] Re10/23/12 SEX: F Status: REG REF SPEC: [id number] MICHAELA: 10/23/12-[address]: Lisa Hernandez NP REQ: [id number] RECD: 10/23/12 STATUS: COMP _ SOURCE: URINE SPDESC: ORDERED: Urine Culture QUERIES: Medent Number [id number] Procedure Result Verified Site Urine Culture Final 10/25/12- 1111 ML Organism 1 NORMAL ARABELLA Caldwell Count 75-100,000 (Many) CFU/ML END OF REPORT * ML=Testing performed at Main Lab DEPARTMENT OF PATHOLOGY, [address] [place] [address] Gabriele Ravi M.D. Director [facility] Permit #[id number] 50 A metabolite of Naproxen, O-desmethylnaproxen, has [...] 5 Kidney failure <15 (or dialysis) 52 Desirable: Less than 200 MG/DL Borderline-High Risk: 200-239 MG/DL High-Risk: 240 MG/DL and over 53 HDL Interpretation: Undesirable: High Risk: Less than 40 MG/DL Desirable: Low Risk: Greater than 60 MG/DL 54 RUN DATE: 03/10/12 [facility] NMI LIVE PAGE 1 RUN TIME: 826 Specimen Inquiry RUN USER: INTERFACE Name: ALPA KEARNEY Status: REG REF Re03/07/12 Age/Sex: 81/F Unit#: [id number] Location: [facility] : 32 SPEC #: [id number] MICHAELA: 03/07/12-1012 STATUS: COMP REQ #: [id number] RECD: 03/07/12-16[address] [facility] DR: Alyce Cadena NP SOURCE: URINE ENTR: 03/07/12-[address]: DUSTY: ORDERED: URINE C S QUERIES: MEDENT REQUISITION # [id number] Procedure Result Verified Site > URINE CULTURE SENSITIVI Final 03/10/12- 0827 ML Organism 1 GROUP D ENTEROCOCCUS COLONY [...] *These antibiotics are not available in the [facility] Formulary. Contact the Microbiology Department for any additional antibiotic reporting. - [facility] State Permit #[id number] [address] [place] [address] DEPARTMENT OF PATHOLOGY, [address] [place] [address] [facility] Permit #[id number] Gabriele Ravi M.D. Director Sebastián Nava M.D. [employer] 55 >100^>100,000 ORGANISMS/ML (MANY)^CCU 56 Anion gap measurement may be of limited value in the presence of any alkalosis, especially in a combined acid base disorder. . 57 A metabolite of Naproxen, O-desmethylnaproxen, [...] 5 Kidney failure <15 (or dialysis) 59 KLEBSIELLA PNEUMONIAE >100^>100,000 ORGANISMS/ML (MANY)^CCU 60 >100^>100,000 ORGANISMS/ML (MANY)^CCU 61 Anion gap measurement may be of limited value in the presence of any alkalosis, especially in a combined acid base disorder. . 62 Note change in reference range as of 05/29/08. The change was based on recommendations from the [place] [employer]. 63 Please note change in reference range effective 08 . 64 A metabolite of Naproxen, O-desmethylnaproxen, has been shown to interfere with the Jendrassik-Papa method for measuring total bilirubin. Samples from patients who have taken Naproxen have shown spurious elevation in total bilirubin levels. 65 Because ethnic data is not always readily [...] 15-29 5 Kidney failure <15 (or dialysis) 66 CHOLESTEROL INTERPRETATION: Desirable: Less than 200 [...] in a combined acid base disorder. . 70 Note change in reference range as of 05/29/08. The change was based on recommendations from the [place] [employer]. 71 Please note change in reference range effective 08 . 72 PATIENT MAY HAVE RESULTS PER DOCTOR'S AUTHORIZATION. Questions regarding this report should be directed to your doctor. 73 Anion gap measurement may be of limited value in the presence of any alkalosis, especially in a combined acid base disorder. . 74 CHOLESTEROL INTERPRETATION: Desirable: Less than 200 MG/DL Borderline-High Risk: 200-239 MG/DL High-Risk: 240 MG/DL and over 75 HDL INTERPRETATION: Undesirable: High Risk: Less than 40 MG/DL Desirable: Low Risk: Greater than 60 MG/DL 76 LDL INTERPRETATION: Low Risk Optimal Level: LDL Less than 100 MG/DL Near or Above Optimal: LDL 100-129 MG/DL Borderline High Risk: LDL 130-159 MG/DL High Risk: LDL 160-189 MG/DL Very High Risk: LDL Greater than 189 MG/DL Procedures Date Code Description Status 05/24/2018 80938 THR Total Hip Replacement Completed 05/24/2018 18411 THR Total Hip Replacement Completed 05/18/2018 87335 Stress Test Completed 05/18/2018 42721 Myocardial Perfusion Imaging Tomographic (Spect) Completed Multiple Studies 05/15/2018 23943 ECHO Transthoracic, Real-Time 2D With Doppler And Completed Color Flow 05/15/2018 16690 ECHO Transthoracic, Real-Time 2D With Doppler And Completed Color Flow 05/10/2018 01091 EKG Tracing & Interpretation Completed 05/09/2018 16622 EKG, Interpretation Only Completed 09/21/2017 [id number] Mammogram Completed 09/21/2017 [id number] Bone Mineral Density Test Completed 08/02/2016 [id number] Diabetic Retinal Eye Exam Completed 04/18/2016 55417 EKG Tracing & Interpretation Completed 09/09/2015 [id number] Mammogram Completed 09/09/2015 348545206 Bone Mineral Density Test Completed 04/20/2015 91350 EKG Tracing & Interpretation Completed 11/28/2014 39214 EKG Tracing & Interpretation Completed 10/06/2014 34740 Xray Knee 3 Views Completed 09/10/2014 88325 Xray Knee 3 Views Completed 09/10/2014 93696 Rad Exam; Knee, Ap&L Completed 09/10/2014 92434 Dislocation patella closed tx w/o anesthesia Completed 09/10/2014 90872 FX Patella Care Completed 02/25/2014 24900 ECHO Transthoracic, Real-Time 2D With Doppler And Completed Color Flow 01/16/2014 41759 EKG Tracing & Interpretation Completed 01/13/2014 28482 EKG, Interpretation Only Completed 01/12/2014 01919 EKG, Interpretation Only Completed 01/11/2014 49625 Cath PLMT&NJX L Ventriculog Img S&I Completed 01/11/2014 78016 EKG, Interpretation Only Completed 01/11/2014 62625 Percutaneous Transcatheter Placement Of Intracoronary Completed Stent 01/10/2014 34541 EKG, Interpretation Only Completed 01/09/2014 71097 Left Heart Cath. Incl S/I Coronaries, Angio S/I V Gram Completed If Done 01/09/2014 93913 EKG, Interpretation Only Completed 01/09/2014 36528 Revascularization Acute Total/Subtotal Occlusion Completed 01/09/2014 44197 Revascularization Acute Total/Subtotal Occlusion Completed 08/21/2013 57895579 Mammogram Completed 07/24/2012 589361859 Bone Mineral Density Test Completed 07/24/2012 45775814 Mammogram Completed 05/17/2012 92325 Rad Exam; Pelvis Completed 05/17/2012 93987 Rad Exam; Hip Unilat Completed 06/27/2011 28347 Rad Exam; Pelvis Completed 06/27/2011 82845 Rad Exam; Hip Unilat Completed 05/17/2011 30191 THR Total Hip Replacement Completed 05/17/2011 36693 THR Total Hip Replacement Completed 04/26/2011 11071 EKG Tracing & Interpretation Completed 02/16/2011 79965 Rad Exam; Hip Unilat Completed 02/16/2011 12667 Rad Exam; Pelvis Completed 11/29/2010 35730104 Mammogram Completed 02/11/2009 15419525 Colonoscopy Completed Encounters Type Date Location Provider Dx Diagnosis Office Visit 05/25/2018 [facility] I10 Essential (primary) 1:15p Assoc,ALEJO Ramos hypertension Hospitalists 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 (primary) Hospitalists hypertension I25.10 Athscl heart disease of [place] coronary artery w/o ang pctrs Office Visit 05/10/2018 Nanette Millan Z01.818 Encounter for other 8:45a Cardiology Christopher Smith M.D. preprocedural [facility] examination M25.551 Pain in right hip I25.10 Athscl heart disease of [place] coronary artery w/o ang pctrs E78.00 Pure hypercholesterolemia, unspecified I10 Essential (primary) hypertension I25.5 Ischemic cardiomyopathy Office Visit 05/08/2018 2:20p [facility] Internal Aaron Caldera Z01.818 Encounter for other Stanford Gibbons M.D. preprocedural [place] examination I10 Essential (primary) hypertension I25.10 Athscl heart disease of [place] coronary artery w/o ang pctrs E78.2 Mixed hyperlipidemia M85.831 Oth disrd of bone density and structure, right forearm M16.11 Unilateral primary osteoarthritis, right hip Office Visit 04/30/2018 9:30a Orthopedic Services Glenna Hayske, M25.551 Pain in right Of C.M.A. M.D. hip M16.11 Unilateral primary osteoarthritis, right hip Office Visit 04/18/2018 2:00p [facility] Internal Aaron Caldera M25.551 Pain in right hip Stanford Gibbons M.D. [place] Office Visit 02/26/2018 2:20p [facility] Internal Aaron Caldera I10 Essential Stanford Gibbons M.D. (primary) [place] hypertension I25.10 Athscl heart disease of [place] coronary artery w/o ang pctrs E78.2 Mixed hyperlipidemia M85.9 Disorder of bone density and structure, unspecified L98.9 Disorder of the skin and subcutaneous tissue, unspecified Office Visit 10/16/2017 1:00p [facility] Internal Aaron Caldera M85.831 Oth disrd of Stanford Gibbons M.D. bone density and [place] structure, right forearm Office Visit 10/06/2017 12:06p [facility] Susi R23.8 Other skin [place], [employer] changes R23.8 Other skin changes Office Visit 10/04/2017 [facility] Susi R23.8 Other skin changes 11:46a [place], [employer] Office Visit 05/04/2017 [facility] Internal Aaron Caldera Z01.810 Encounter for 10:40a Stanford Gibbons M.D. preprocedural [place] cardiovascular examination H26.9 Unspecified cataract I10 Essential (primary) hypertension I25.10 Athscl heart disease of [place] coronary artery w/o ang pctrs E78.2 Mixed hyperlipidemia M85.9 Disorder of bone density and structure, unspecified Office Visit 02/22/2017 11:20a [facility] Internal Aaron E. I10 Essential ( primary) Stanford Gibbons M.D. hypertension [place] E78.2 Mixed hyperlipidemia I25.10 Athscl heart disease of [place] coronary artery w/o ang pctrs M85.9 Disorder of bone density and structure, unspecified Office Visit 04/18/2016 2:40p [place] [facility] Sebastián Barker, I10 Essential (primary) Of [employer] [place] [facility] [place], FAC, hypertension FSCAI E78.2 Mixed hyperlipidemia I25.10 Athscl heart disease of [place] coronary artery w/o ang pctrs Office Visit 02/22/2016 10:40a [facility] Internal Aaron ESanam I10 Essential ( primary) Stanford Gibbons M.D. hypertension [place] E78.2 Mixed hyperlipidemia I25.10 Athscl heart disease of [place] coronary artery w/o ang pctrs Office Visit 12/31/2015 11:20a [facility] Internal Aaron Caldera M79.652 Pain in left thigh Stanford Gibbons M.D. [place] Office Visit 10/28/2015 4:00p [facility] Internal Aaron Caldera R10.813 Right lower Stanford Gibbons M.D. quadrant abdominal [place] tenderness Office Visit 04/20/2015 11:20a [place] Sebastián Barker, 401.1 Hypertension Cardiology Of [place]ie, [facility], Benign [employer] [place] [facility]SCAI 414.9 Ischemic Heart Disease Chronic Unspec 272.2 Hyperlipidemia Mixed Office Visit 02/17/2015 2:00p [facility] Internal Aaron Caldera 401.1 Hypertension Benign Stanford Gibbons M.D. [place] 569.3 Hemorrhage Rectum & Anus 414.01 Coronary Atherosclerosis [place] 681.11 Onychia & Paronychia Toe V03.82 Streptococcus Pneumoniae Vaccination Spec Other V06.1 Kbhhgrhezp-Xpuhpct-Llxwniqa Combined (DTaP) Office Visit 12/10/2014 11:40a [facility] Internal Aaron Caldera 569.3 Hemorrhage Rectum Stanford Gibbons M.D. & Anus [place] 723.1 Cervicalgia Office Visit 11/28/2014 3:20p [place] [facility] Sebastián Barker, 401.1 Hypertension Of [facility] [place] [facility] [place] [facility], Benign FSCAI 414.9 Ischemic Heart Disease Chronic Unspec 272.2 Hyperlipidemia Mixed Office Visit 05/16/2014 2:15p [place] [facility] Sebastián Barker, 414.9 Ischemic Heart Of [facility] [place] [facility] [place]., [facility], Disease Chronic FSCAI Unspec 401.1 Hypertension Benign 272.2 Hyperlipidemia Mixed Office Visit 03/04/2014 2:45p [place] [facility] Sebastián Barker, 414.9 Ischemic Heart Of [facility] [place] [facility] [place]., [facility], Disease Chronic FSCAI Unspec 401.1 Hypertension Benign 272.2 Hyperlipidemia Mixed Office Visit 02/17/2014 [facility] Internal Aaron Caldera 414.01 Coronary 3:40p Stanford Gibbons M.D. Atherosclerosis [place] 401.1 Hypertension Benign 272.2 Hyperlipidemia Mixed Office Visit 01/16/2014 [place] Sebastián Barker, 414.01 Coronary 2:45p Cardiology Of [place]ie, FACC, Atherosclerosis [facility] [place] [facility] [place] 401.1 Hypertension Benign 272.2 Hyperlipidemia Mixed Office Visit 01/13/2014 11:21a [place] [facility] Sebastián Barker, 413.9 Angina Pectoris Of [facility] Nitza.Carole., FACC, Other Unspec FSCAI 411.1 Coronary Syndrome Intermediate 414.9 Ischemic Heart Disease Chronic Unspec Office Visit 01/12/2014 9:30a [facility] Dev Millan 786.50 Pain Chest Virginie Smith Unspec 785.0 Tachycardia Unspec 414.01 Coronary Atherosclerosis [place] 410.71 Myocardial Infarc Acute Subendocardial Initial Episode Care Office Visit 01/11/2014 3:46p [facility] Dev Millan 411.1 Coronary Syndrome Virginie Smith Intermediate 410.71 Myocardial Infarc Acute Subendocardial Initial Episode Care 401.1 Hypertension Benign Office Visit 01/10/2014 10:37a [place] [facility] Sebastián Barker, 413.9 Angina Pectoris Of [facility] Nitza.Gita, FACC, Other Unspec FSCAI 411.1 Coronary Syndrome Intermediate Office Visit 01/10/2014 [facility] Kenn Fonseca 410.71 Myocardial Infarc 7:47p Assoc,cherelle Aguilar, Acute Subendocardial Hospitalists HaroonD. Initial Episode Care 401.1 Hypertension Benign Office Visit 01/09/2014 2:32p [place] [facility] Meagan Macias, 786.50 Pain Chest Of Sarita Rachel Unspec 796.4 Clinical Findings Abnormal Other Office Visit 01/09/2014 [facility] Kenn CristianaSanam 410.71 Myocardial Infarc 7:46p Assoc,pc Mer Higgins Acute Subendocardial Hospitalromeo Rachel Initial Episode Care 401.1 Hypertension Benign Office Visit 01/08/2014 [facility] [place] 410.71 Myocardial Infarc 7:46p Assoc,pc Virginie Harris Acute Hospitalists Subendocardial Initial Episode Care 401.1 Hypertension Benign Office Visit 08/08/2013 [facility] Internal Aaron Caldera 599.0 UTI Urinary Tract 3:40p Stanford Gibbons M.D. Infection Site Not [place] Spec Office Visit 05/15/2013 Orthopedic Storm Davison 715.95 Osteoarthrosis 11:15a Services Of Kobe, Unspec Genlzd Or C.M.A. R.P.A.-C Localized Pelvic & Thigh Office Visit 02/21/2013 [facility] Internal Anastasiya Dhillon, 599.0 UTI Urinary Tract 10:30a Stanford Guillaume M.D. Infection Site Not [place] Spec 627.3 Atrophic Vaginitis Postmenopausal Office Visit 02/11/2013 1:20p [facility] Internal Aaron Caldera 401.1 Hypertension Benign Virginie Arriaza 272.0 Hypercholesterolemia Pure Office Visit 10/23/2012 3:00p [facility] Internal Lisa Hernandez, 599.0 UTI Urinary Medicine - N.P. Tract Infection [place] Site Not Spec 401.1 Hypertension Benign Office Visit 08/13/2012 1:00p [facility] Internal Aaron Caldera 401.1 Hypertension Benign Virginie Arriaza V76.19 Screening Breast Exam Malignant Neoplasms Other 733.90 Bone & Cartilage Disorder Unspec 272.0 Hypercholesterolemia Pure Office Visit 05/17/2012 Orthopedic Maicol 715.95 Osteoarthrosis 10:15a Services Of Virginie Carrasco Unspec Genlzd Or C.M.A. Localized Pelvic & Thigh Office Visit 03/07/2012 [facility] Internal Alyce 599.0 UTI Urinary Tract 9:30a Stanford Garcia Infection Site Not [place] , N.P. Spec 627.3 Atrophic Vaginitis Postmenopausal Office Visit 08/17/2011 2:00p DO Not Use [employer] Nurse Visit 599.0 UTI Urinary Tract AT [facility] Infection Site Not Spec Office Visit 04/26/2011 1:00p DO Not Use [employer] Lisa V72.84 Examination AT [facility] David, Preoperative Unspec N.P. 401.1 Hypertension Benign 715.95 Osteoarthrosis Unspec Genlzd Or Localized Pelvic & Thigh 272.0 Hypercholesterolemia Pure Office Visit 02/16/2011 2:00p Orthopedic Connor Ojeda, 715.95 Osteoarthrosis Services Of Virginie Unspec Genlzd Or C.M.A. Localized Pelvic & Thigh Office Visit 11/12/2010 10:20a DO Not Use [employer] Aaron Caldera 401.1 Hypertension Benign AT Michael Gibbons M.D. 715.95 Osteoarthrosis Unspec Genlzd Or Localized Pelvic & Thigh 272.0 Hypercholesterolemia Pure V04.81 Need For Prophylactic Vaccination & Inoculation/Influenza Office Visit 07/27/2010 1:00p DO Not Use [employer] AT Aaron Gibbons, 723.1 Cervicalgia Michael Rachel 300.09 Anxiety States Other 401.1 Hypertension Benign Office Visit 07/23/2010 9:45a Neurosurgery True Patiño 847.0 Sprains & Strains Services Of Sarita Vitale M.D. Neck Office Visit 07/14/2010 1:45p Neurosurgery True Patiño 723.4 Brachial Neuritis Services Of Sarita Vitale M.D. 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 RPA-C Strains Neck 723.1 Cervicalgia Office Visit 06/23/2010 10:00a Orthopedic Holly Hager, 719.41 Pain Joint Services Of RPA-C Shoulder Region C.M.A. 723.1 Cervicalgia Office Visit 06/18/2010 DO Not Use [employer] Aaron Caldera 726.19 Shoulder Disorders 11:40a AT Michael Gibbons M.D. Other Spec Office Visit 06/07/2010 Orthopedic Connor Ojeda, 715.95 Osteoarthrosis 9:30a Services Of Virginie Unspec Genlzd Or C.M.A. Localized Pelvic & Thigh Office Visit 05/12/2010 DO Not Use [employer] Aaron E. 715.00 Osteoarthrosis 10:00a AT Humblesamara Gibbons M.D. Generalized Site Unspec 401.1 Hypertension Benign 272.0 Hypercholesterolemia Pure Office Visit 10/21/2009 1:30p DO Not Use [employer] Aaron E. 401.1 Hypertension Benign AT Humblesamara Gibbons M.D. 715.00 Osteoarthrosis Generalized Site Unspec 388.70 Otalgia & Earache Unspec Office Visit 09/10/2009 2:15p DO Not Use [employer] Aaron E. 388.70 Otalgia & Earache AT Michael Gibbons M.D. Unspec Office Visit 04/20/2009 10:30a [place] [facility] Aaron E. 401.1 Hypertension Benign Assoc AT Virginie Gibbons [facility] Office Visit 03/20/2009 11:00a [facility] Aaron E. 401.1 Hypertension Benign Assoc AT Virginie Gibbons [facility] Office Visit 12/31/2007 11:00a [facility] Aaron E. 715.00 Osteoarthrosis Assoc AT Virginie Gibbons [facility] Unspec 272.0 Hypercholesterolemia Pure 401.1 Hypertension Benign Office Visit 07/02/2007 [facility] Aaron E. 272.0 Hypercholesterolemia Pure 11:00a Assoc AT Virginie Gibbons [facility] 715.00 Osteoarthrosis [facility] Site Unspec 401.1 Hypertension Benign Plan of Treatment Future Appointment(s):03/05/2019 1:00 pm - Aarno Gibbons M.D. at [facility] Internal Medicine - Twcdulxsc97/26/2018 - Aaron Gibbons M.D.Z00.00 Encounter for general adult medical examination without abnoI10 Essential ( primary) hypertensionFollow up:6 months or prnE78.5 Hyperlipidemia, rsvwebbbazsI93.10 Atherosclerotic heart disease of [place] coronary artery withZ96.641 Presence of right artificial hip joint
[2018-09-27 16:21] VITALS: BP 165/63
--- NOTE | 2018-09-27 16:21 | UC ---
Complaint Female HPI - HPI Summary HPI Summary: one day hx of dysuria and pelvic pressure. states she gets UTI's at least 2-3x /yr. Has Urologist on board. - History Of Current Complaint Stated Complaint: burning URINATION Time Seen by Provider: 09/27/18 16:14 Hx Obtained From: Patient ?: No Onset/Duration: Sudden Onset Character: Burning Aggravating Factor(s): Urination Alleviating Factor(s): Nothing - Allergies/Home Medications Allergies/Adverse Reactions: Allergies Allergy/AdvReac Type Severity Reaction Status Date / Time scallops Allergy Vomiting Verified 09/27/18 16:15 PMH/Surg Hx/FS Hx/Imm Hx Previously Healthy: Yes - Surgical History Surgical History: Yes Surgery Procedure, Year, and Place: CERVICAL DISC REPAIR 1971VARICOSE VEIN SURGERY 1958LEFT HIP REPLACEMENT 2010 - Family History Known Family History: Positive: Hypertension - Social History Alcohol Use: None Alcohol Amount: once or twice a year Substance Use Type: None Smoking Status (MU): Never Smoked Tobacco - Immunization History Most Recent Influenza Vaccination: FALL 2012 Most Recent Tetanus Shot: UP TO DATE Most Recent Pneumonia Vaccination: UP TO DATE Review of Systems All Other Systems Reviewed And Are Negative: Yes Constitutional: Positive: Negative Genitourinary: Positive: Dysuria. Negative: Hematuria, Frequency, Urgency Physical Exam Triage Information Reviewed: Yes Appearance: Well-Appearing Vital Signs Reviewed: Yes Respiratory Exam: Normal Cardiovascular Exam: Normal Abdomen Description: Positive: Nontender, Soft. Negative: CVA Tenderness (R), CVA Tenderness (L) Complaint Female Dx - Course Course Of Treatment: One day of dysuria and pelvic pressure in an elderly pt. Afebrile, no mental status changes. has hx of UTI's, will tx empirically but have asked her to f/u w/ urologist. - Differential Dx/Diagnosis Provider Diagnosis: Dysuria, HTN (hypertension) Discharge - Sign-Out/Discharge Documenting (check all that apply): Patient Departure All imaging exams completed and their final reports reviewed: No Studies - Discharge Plan Condition: Good Disposition: HOME Prescriptions: Nitrofurantoin Macrocrystal [Nitrofurantoin] 100 mg PO BID 5 Days #10 capsule Patient Education Materials: Dysuria (ED), Hypertension in the Older Adult (ED) Referrals: Aaron Gibbons MD [Primary Care Provider] - Additional Instructions: Please follow up with your Urologist - Billing Disposition and Condition Condition: GOOD Disposition: Home
== END 2018-09-27 16:48 | disposition home or self-care (01) ==
LOC: UCEAST 16:09
DX: R30.0 Dysuria (principal); I10 Essential (primary) hypertension; Z91.013 Allergy to seafood
CPT/HCPCS: 81003; 87086; 99212; G0463